=== PATIENT | male | born 1945 | race Caucasian/White ===

== ENCOUNTER 2023-01-04 10:51 | Inpatient (IN) | payer MEDICARE, SELFPAY ==
[2023-01-04] VITALS (33 sets, daily range): BP systolic 121–210; BP diastolic 74–121; PULSE 59–98; RESP 12–18; TEMP 36.1–36.6; O2SAT 93–100; BMI 24.3
--- NOTE | ~2023-01-04 | XR_ITS ---
Portable chest x-ray Comparison: 01/06/2023 Clinical History: Respiratory failure Findings: NG tube is in satisfactory position. There is minimal bibasilar haziness. Cardiomediastin al silhouette is stable. Bones and soft tissues are unremarkable. Impression: NG tube in place. Minimal bibasilar haziness. Correlate for mild pulmonary edema versus atelectatic change. Reviewed, dictated and finalized at location . Impression: NG tube in place. Minimal bibasilar haziness. Correlate for mild pulmonary edema versus atelectat ic change.
--- NOTE | ~2023-01-04 | CT_ITS ---
EXAMINATION: CT soft tissue neck chest w DATE: 01/06/2023 08:47 INDICATION: Neck swelling. TECHNIQUE: Computed tomography (CT) of the neck and chest was performed with 75 mL Omnipaque-350 intr avenous contrast. Automated exposure control and iterative reconstruction technique were employed. Th e dose-length product was 1059.78 mGy-cm. COMPARISON: None FINDINGS: CT NECK: There is mild mucosal thickening in the paranasal sinuses. There is fluid in the pharynx and trachea. The endotracheal tube tip is in expected position above the heber. An orogastric tube is n oted. There is mild plaque in the proximal internal carotid arteries with 0% stenosis relative to nor mal distal artery lumen diameters. There are no pathologically enlarged lymph nodes. There is superfi cial soft tissue swelling of the neck, left worse than right. There are small bilateral mastoid effus ions. There is severe cervical spondylosis. CT CHEST: There is mild emphysema. There is mild elevation of left hemidiaphragm. There are small ple ural effusions. There is dependent atelectasis bilaterally. There is mucous plugging in the lower lob es. Calcified left lung nodules and calcified left hilar lymph nodes are consistent with old granulom atous disease. The heart size is normal. No pericardial effusion. There are coronary artery calcifica tions. There is no pulmonary embolus. Aortic atherosclerosis is noted. There is a 2.6 cm mass in righ t adrenal gland. There is a 1.5 cm mass in left adrenal gland. There is severe thoracic spondylosis. IMPRESSION: 1. Superficial soft tissue swelling of the neck, left worse than right. 2. Mild emphysema. 3. Small pleural effusions. 4. Mucous plugging in the lower lobes. 5. Bilateral adrenal masses measuring up to 2.6 cm on the right. In the absence of known malignancy, these findings are likely adenomas. Reviewed, dictated and finalized at location E.
--- NOTE | ~2023-01-04 | XR_ITS ---
EXAMINATION: XR chest ET placement DATE: 01/04/2023 12:56 INDICATION: Intubation. TECHNIQUE: A single frontal view of the chest was obtained. COMPARISON: None. FINDINGS: There is mild atelectasis in right lower lung zone. There is mild scarring at the lung apic es. No pleural effusion or pneumothorax. The heart size is normal. The endotracheal tube tip is 3.7 c m above the heber. IMPRESSION: 1. Mild atelectasis in right lower lung zone. 2. Mild scarring at the lung apices. Reviewed, dictated and finalized at location A.
--- NOTE | ~2023-01-04 | XR_ITS ---
XR_KUBGTUBINS_CR INDICATION: Evaluate NG tube position. TECHNIQUE: Limited KUB perform for evaluating NG tube . COMPARISON: No prior studies for comparison. FINDINGS: NG tube tip in the stomach on the second image. Visualized bowel gas pattern is unremarkabl e.Lung bases are unremarkable. IMPRESSION: 1: NG tube tip in the stomach on the second image. Reviewed, dictated and finalized at location B.
--- NOTE | ~2023-01-04 | XR_ITS ---
MODIFIED ESOPHAGRAM HISTORY: Dysphagia. TECHNIQUE: Modified barium esophagram was performed on 01/07/2023. I administered fluoroscopy and perf ormed the exam with speech pathologist. Patient was seated for lateral fluoroscopic imaging for claudette stion of thin liquids, pudding, solids and quantified amounts, followed by thin liquids in uncontroll ed amounts. This was recorded on tape. 2 fluoroscopic spot images were also recorded. The DAP for thi s procedure was 2.0 34 Gycm2. The amount of fluoroscopy time used during this procedure was 3.9 minut es. FINDINGS: Initial attempt at evaluation was limited by the presence of a nasogastric tube which was coiled in t he vallecula which interfered with normal swallowing. Patient was returned following removal of the n asogastric tube. Oral stage: Adequate function. Pharyngeal stage: Reduced pharyngeal squeeze. There is both vallecular and pharyngeal wall residue, t he former which clears with multiple swallows. No laryngeal penetration or aspiration. Cervical/esophageal stage: Adequate function. IMPRESSION: Mild pharyngeal dysphagia without residual penetration or aspiration. Please correlate w jennifer speech pathologist findings and specific feeding recommendations. Reviewed, dictated and finalized at location A. IMPRESSION: Mild pharyngeal dysphagia without residual penetration or aspiratio n. Please correlate with speech pathologist findings and specific feeding shane mmendations.
--- NOTE | ~2023-01-04 | XR_ITS ---
EXAMINATION: XR chest 1V portable DATE: 01/05/2023 05:31 INDICATION: Acute respiratory failure. TECHNIQUE: A single frontal view of the chest was obtained. COMPARISON: Chest single view 01/04/2023 FINDINGS: There are airspace opacities at left lung base. There is a small left pleural effusion. No pneumothorax. The heart size is normal. The nasogastric tube tip is in the stomach. The endotracheal tube tip is 3.0 cm above the heber. IMPRESSION: 1. Worsened airspace opacities at left lung base, consistent with atelectasis versus pneumonia. 2. Small left pleural effusion. Reviewed, dictated and finalized at location A. IMPRESSION: 1. Worsened airspace opacities at left lung base, consistent with atelectasis v ersus pneumonia. 2. Small left pleural effusion.
--- NOTE | ~2023-01-04 | XR_ITS ---
Portable upright view of the abdomen Clinical history: NG tube placement Findings: NG tube is present, tip below the diaphragm. Bowel gas pattern is nonspecific. Evidence for obstruction or free air. No abnormal mass lesion or calcification is seen. Osseous structures are in tact. Impression: NG tube in satisfactory position. Reviewed, dictated and finalized at location . Impression: NG tube in satisfactory position.
--- NOTE | ~2023-01-04 | XR_ITS ---
EXAMINATION: XR chest 1V portable DATE: 01/06/2023 05:30 INDICATION: Respiratory failure. TECHNIQUE: A single frontal view of the chest was obtained. COMPARISON: Chest single view 01/05/2023 FINDINGS: There are airspace opacities at left lung base. There is a small left pleural effusion. No pneumothorax. The heart size is normal. The endotracheal tube tip is 1.9 cm above the heber. The norma ogastric tube tip is beyond the inferior margin of the radiograph, but at least to the stomach. IMPRESSION: 1. Stable airspace opacities at left lung base, consistent with atelectasis versus pneumonia. 2. Stable small left pleural effusion. Reviewed, dictated and finalized at location E. IMPRESSION: 1. Stable airspace opacities at left lung base, consistent with atelectasis raimundo fabián pneumonia. 2. Stable small left pleural effusion.
[2023-01-04] MEDS: EPINEPHrine HCL INJ 1 MG/ML AMPUL (11:05)
[2023-01-04] MEDS: diphenhydrAMINE HCl INJ 50 MG/ML VIAL (11:05)
--- NOTE | 2023-01-04 11:15 | PC.NURSE ---
Dr. Kent in room to assess pt. He would like pt to be taken to OR to be intubated. He states they will go get an OR room ready and to watch him and if starts to get worse, call.
[2023-01-04] MEDS: methylPREDNISolone SOD SUCC 125 MG VIAL (11:18)
[2023-01-04] MEDS: FAMOTIDINE 20 MG/2 ML VIAL (11:18)
--- NOTE | 2023-01-04 11:18 | PC.NURSE ---
Pt tongue continues to swell and pt becoming more restless. Pt assisted with suctioning. 2L NC placed on pt.
--- NOTE | 2023-01-04 11:22 | PC.NURSE ---
Pt taken to OR at this time
--- NOTE | 2023-01-04 11:35 | ED.ALLEREA ---
HPI - Allergic Reaction General Chief complaint: Allergic Reaction Stated complaint: Allergic Reaction, tongue swelling Time Seen by Provider: 01/04/23 11:02 History of Present Illness HPI narrative: 77-year-old male with history of hypertension and smoking presents to the ED for evaluation of swelling of the tongue that started approximate 2 hours prior to arrival. Upon arrival to the ED patient had significant swelling of tongue and to upper throat and patient was having difficulty handling his secretions. Patient denied any chest pain and was able to breathe through his nose. Related Data Home Medications Medication Instructions Recorded Confirmed lisinopril 20 1 tablet PO DAILY 01/04/23 01/04/23 mg-hydrochlorothiazide 12.5 mg tablet Allergies Allergy/AdvReac Type Severity Reaction Status Date / Time lisinopril Allergy Severe Anaphylaxis Verified 01/04/23 13:11 /ANGIOEDEMA Review of Systems Review of Systems: All systems reviewed & are unremarkable except as noted in HPI and below PMFSH Social History Social History Smoking packs per day: 0.5 Smoking cigarettes per day: 10.0 Smoking status: Current every day smoker Alcohol intake: current Substance use type: does not use Other substance usage details: 3-4 glasses of wine per day Spiritual care concerns: No Exam Narrative: APPEARANCE: Distressed appearing HEAD: normocephalic, atraumatic. EYES: PERRLA/EOMI, conjunctivae clear. NOSE: Normal no drainage EARS:TMS clear with good light reflex. THROAT: Significant swelling of tongue NECK: Swelling of anterior throat RESPIRATORY: Airway patent, respirations nonlabored. Clear to auscultation bilaterally, no rales, rhonchi, wheezing. CARDIOVASCULAR: Regular rate and rhythm without murmurs rubs or gallops. ABDOMINAL: Soft, nontender, nondistended, normal bowel sounds MUSCULOSKELETAL: Moves all extremities. Strength/ROM intact, No edema, No calf tenderness. NEURO: Alert. Cranial nerves II through XII intact. Grossly intact SKIN: Warm, dry. Normal Color Course Course Emergency Course: 77-year-old male presented ED for evaluation of angioedema. Shortly after arrival to the ED anesthesia and ENT were consulted. Dr. Kent did see the patient in the emergency department and decided to establish the airway in the operating room. Prior to going to the OR patient was treated with IM epinephrine, IV Solu-Medrol IV Solu-Medrol and IV famotidine. Case was discussed with both the medical office receptionist assistant and with the hospitalist Vital Signs Vital signs: Vital Signs Temperature 97.4 F L 01/04/23 11:08 Pulse Rate 81 01/04/23 11:08 Respiratory Rate 18 01/04/23 11:08 Blood Pressure 190/103 H 01/04/23 11:08 Pulse Oximetry 100 01/04/23 11:08 Oxygen Delivery Room Air 01/04/23 11:08 Temperature 97.9 F 01/04/23 18:16 Pulse Rate 76 01/04/23 18:36 Respiratory Rate 18 01/04/23 18:16 Blood Pressure 177/85 H 01/04/23 18:15 Pulse Oximetry 96 01/04/23 18:16 Oxygen Delivery Mechanical Ventilation 01/04/23 17:13 Fraction of Inspired Oxygen 30 01/04/23 17:13 MDM - Allergic Reaction Lab Data 01/04/23 15:06 01/04/23 15:06 Discharge Plan Discharge Clinical Impression: Angioedema Patient Disposition: Still a Patient Condition: Critical
--- NOTE | 2023-01-04 11:48 | WPDCN ---
Assessment and Plan Assessment and plan (1) Angioedema: Code(s): T78.3XXA - Angioneurotic edema, initial encounter Status: Acute Plan Rob presented with angioedema, progressive, likely secondary to EVELINA inhibitor. I was consulted as he was being brought to the OR for airway management. Exam with glidescope and fiberoptic scope showed severe edema of the tongue all the way to the vallecula, significant epiglottic edema. Never got a good view of the vocal folds. Pt maintained saturation and Dr. Kent with anesthesia was able to intubate with endotracheal tube despite very limited view. Tracheostomy was not reqiured. He will be transferred to ICU for further management. From ENT standpoint, should be able to extubate once passing leak test and signs of angioedema have resolved. Feel free to call if further concern for extubation or airway management. HPI Data of Consult Date/Time: 01/04/23 11:48 Primary Care Provider: PHYSICIAN NOT ON STAFF Consult Narrative Narrative: Rob Olivier is a 77 year old male, smoking history, presented to ED with angioedema after EVELINA inhibitor, progressive swelling prompting ENT consult for airway management. Review of Systems Review of Systems: Severe tongue edema, no stridor, pt sititng up in bed not tolerating secretions ROS unobtainable: Yes unobtainable due to medical condition Meds Home Medications and Allergies Allergies Allergy/AdvReac Type Severity Reaction Status Date / Time lisinopril Allergy Anaphylaxis Verified 01/04/23 11:16 Vital Signs Vital Signs - 24 hr 01/04/23 11:08 Temperature 36.3 C L Pulse Rate 81 Respiratory Rate 18 Blood Pressure 190/103 H Pulse Oximetry 100 Oxygen Delivery Room Air Exam Narrative: Severe tongue edema, uvular edema, extending to hypopharynx. Pt was brought to OR for intubation.
--- NOTE | 2023-01-04 11:51 | SUR.OPER ---
INTUBATION DONE BY DR. MALHOTRA. DR ANTON AT BEDSIDE.
--- NOTE | 2023-01-04 12:10 | ADMGEN ---
This patient, Rob Olivier, was admitted to Intensive Care Unit-5. Patient/family oriented to hospital policies and general routines including ID bracelet, bed and alarms, visiting hours, pain management, procedures, bathroom and other care routines, personal items, smoking policy, room service/diet, and visiting hours. Information on how to activate the Rapid Response Team has been discussed. Patient/Family are encouraged to report perceived risks to care and to ask questions if they do not understand what they are told or what they should do.
[2023-01-04] MEDS: CISATRACURIUM BESYLATE 200 MG in DEXTROSE 5% 80 ML 6.66 ML IV CONT (12:59)
[2023-01-04] MEDS: PROPOFOL IV EMULSION 100 ML 13.32 MG IV CONT (13:03)
[2023-01-04] MEDS: ROCURONIUM BROMIDE 50 MG/5 ML VIAL IV PUSH (13:04)
--- NOTE | 2023-01-04 13:29 | WPDCNINT ---
Assessment and Plan Assessment and plan (1) Acute respiratory failure: Code(s): J96.00 - Acute respiratory failure, unspecified whether with hypoxia or hypercapnia Status: Acute Assessment and Plan: Acute respiratory failure likely secondary to angioedema, significant swelling of the tongue all the way to the vallecula as examine by ENT using glide scope and fiberoptic scope, significant epiglottic edema, not a good view of the vocal cords, anesthesia was able to intubate the patient with difficulty and with limited views. -chest x-ray and ABGs reviewed, currently on peep of 5, FiO2 of 50%. Will wean FiO2 to maintain O2 sats > 92% -sedated with propofol infusion and neuromuscular blockade with Nimbex infusion -patient is a difficult airway, will keep him sedated and paralyzed for today (2) Angioedema: Code(s): T78.3XXA - Angioneurotic edema, initial encounter Status: Acute Assessment and Plan: Patient presented the ED with angioedema with significant swelling of the tongue and neck patient was a difficult airway and so was taken to the OR by Anesthesia and ENT to obtain in airway. -Discussed was anaesthesia and they were able to obtain an airway after prolonged attempt but his O2 sats remained above 95% at all times. -in the ER Patient was treated with IV Solu-Medrol, IV famotidine, IM epinephrine and IV Benadryl in the ER -started patient on IV Solu-Medrol q.6 hours, IV famotidine, IV Benadryl, (3) Essential hypertension: Code(s): I10 - Essential (primary) hypertension Status: Acute Assessment and Plan: Currently on propofol infusion -hydralazine p.r.n. (4) Tobacco use: Code(s): Z72.0 - Tobacco use Status: Acute Assessment and Plan: According the patient smokes half a packet of cigarettes per day, he is secretive about his smoking habits per - Will direct care counselor patient on cessation of smoking once he is extubated and awake (5) Alcohol use: Code(s): Z78.9 - Other specified health status Status: Acute Assessment and Plan: Patient drinks about 4 glasses of wine daily -once he is extubated will monitor for withdrawal Plan DVT prophylaxis: Lovenox Stress ulcer prophylaxis: Famotidine Nutrition: NPO for now Code Status: Full code Critical Care Time Spent: 53 minutes Due to a high probability of clinically significant, life threatening deterioration, the patient required my highest level of preparedness to intervene emergently and I personally spent this critical care time directly and personally managing the patient. This critical care time included obtaining a history; examining the patient; pulse oximetry; ordering and review of studies; arranging urgent treatment with development of a management plan; evaluation of patient's response to treatment; frequent reassessment; and discussions with other providers. It was exclusive of separately billable procedures and treating other patients and teaching time. Please see Assessment and Plan section and the rest of the note for further information on patient assessment and treatment This dictation may have been done utilizing a voice recognition system. Attempts have been made to correct errors. However, there may be uncorrected grammatical, spelling, and recognitions errors present. 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 This all started about 2 hours prior arrival in the ER. In the ER patient was found to have angioedema with significant swelling of the tongue and neck patient was a difficult airway and so was taken to the OR by Anesthesia a
[2023-01-04 13:33] LABS: Alveolar/Arterial O2 Gradient 187.7 mmHg; Base Excess ABG -4.2 mEq/l (+/-2.0); Fractional Inspired Oxygen 50 %; HCO3 ABG 21.7 mEq/l (22.0-26.0); Oxygen Content ABG 21.4 %vol (16.0-22.0); Oxygen Saturation ABG 98.1 % (95.0-100.0); Oxyhemoglobin 95.1 % THb (90.0-100.0); PCO2 ABG 42.4 mmHg (35.0-45.0); PO2 ABG 121.1 mmHg (80.0-100.0); PO2 FiO2 Ratio Arterial Blood 2.42 %; Total Hemoglobin 15.9 g/dL (12.0-18.0); pH ABG 7.326 (7.350-7.450)
[2023-01-04 13:35] LABS: Device VENTILATOR; Site Drawn LEFT BRACHIAL
[2023-01-04 13:36] LABS: Arterial Blood Gas PEEP 5 cmH2O; Arterial Blood Gas Pressure Support 0 cmH2O; Arterial Blood Gas Tidal Volume 480 ml; Arterial Blood Gas Vent Mode CMV; Arterial Blood Gas Ventilator rate 18 /MIN
[2023-01-04] MEDS: ENOXAPARIN 40 MG/0.4 ML SYRINGE SUB-Q (14:29)
[2023-01-04] MEDS: methylPREDNISolone SOD SUCC 125 MG VIAL 60 MG IV PUSH ×3 (14:29→23:57)
[2023-01-04] MEDS: diphenhydrAMINE HCl INJ 50 MG/ML VIAL IV PUSH ×2 (14:55→20:06)
[2023-01-04] MEDS: hydrALAZINE HCL 20 MG/ML VIAL 10 MG IV PUSH (14:55)
[2023-01-04 15:12] LABS: Basophils Absolute Auto 0.1 K/mm3 (0.0-0.1); Basophils Percent Auto 0.5 % (0.2-1.2); Eosinophils Percent Auto 0.2 % (0-4.4); Hematocrit 50.3 % (42.0-52.0); Hemoglobin 15.9 g/dL (14.0-18.0); Immature Granulocyte Absolute 0.05 K/mm3 (0.00-0.031); Immature Granulocyte Percent A 0.4 % (0-0.5); Lymphocytes Absolute Auto 0.87 K/mm3 (0.9-3.2); Lymphocytes Percent Auto 7.1 % (18.3-44.2); Mean Corpuscular HGB Conc 31.6 g/dl (32-36); Mean Corpuscular Hemoglobin 32.6 pg (26-34); Mean Corpuscular Volume 103.1 fl (80-100); Mean Platelet Volume 10.2 fl (7.4-10.4); Monocytes Absolute Auto 0.3 K/mm3 (0.1-0.6); Monocytes Percent Auto 2.5 % (2.6-8.5); Neutrophils Percent Auto 89.3 % (45.5-73.1); Platelet Count Result 196 k/mm3 (150-375); Red Blood Count 4.88 M/mm3 (4.6-6.20); Red Cell Distribution Width 13.6 % (11.5-14.5); White Blood Count 12.3 K/mm3 (4.5-10.0)
[2023-01-04 15:22] LABS: Alanine Aminotransferase 15 U/L (6-50); Albumin Level 3.9 g/dL (3.5-5.1); Alkaline Phosphatase 45 U/L (38-126); Anion Gap 11 mmol/L (8-16); Aspartate Amino Transferase 27 U/L (17-59); Bilirubin,Total 0.6 mg/dL (0.2-1.3); Blood Urea Nitrogen 19 mg/dL (9-20); Calcium 8.3 mg/dL (8.4-10.2); Carbon Dioxide 19 mmol/L (22-30); Chloride 102 mmol/L (98-107); Estimated CRCL calculation 51 ml/min; Estimated Glomerular Filt Rate > 60; Glucose 122 mg/dL (65-110); Magnesium 2.5 mg/dL (1.6-2.3); Phosphorus 4.7 mg/dL (2.5-4.5); Potassium 4.6 mmol/L (3.4-5.0); Sodium 132 mmol/L (137-145)
[2023-01-04 15:23] LABS: Partial Thromboplastin Time 30.6 SECONDS (22.3-36.8)
[2023-01-04 15:26] LABS: Platelet Estimate Adequate (Adequate); Schistocytes None Seen (NORMAL)
[2023-01-04] MEDS: SODIUM CHLORIDE 0.9% IV 1,000 ML 75 ML (16:52)
[2023-01-04] MEDS: SODIUM CHLORIDE 0.9% IV 1,000 ML 75 ML IV CONT (16:53)
--- NOTE | 2023-01-04 17:43 | PM.IMHP ---
H&P: HPI History of Present Illness Date/Time: 01/04/23 19:30 Chief Complaint: Tongue swelling. Narrative: This is a 77-year-old male with hypertension who presented to the emergency department via private vehicle for evaluation of tongue swelling. He is currently intubated and sedated on paralytics and thus the following history is obtained via a review of his EMR. About 2 hours prior to arrival he developed swelling in the tongue and throat. Ultimately he started to experience shortness of breath and had difficulties maintaining secretions and he came in for evaluation. He was noted to have significant edema of the tongue and neck on arrival to the ER and he was taken immediately to the operating room where he was intubated by the anesthesiologist; ENT was also at bedside and available should a surgical airway become necessary. SpO2 remained above 95% during attempts at intubation. He was treated with IV methylprednisolone, diphenhydramine, and famotidine as well as IM epinephrine. He was brought to the ICU sedated and he has been started on paralytics to ensure that the patient will not be able to self extubate given airway concerns. He has been on lisinopril for many years. He has not had any recent changes in medications or new exposures according to his . Review of Systems Review of Systems: Unable to obtain given clinical condition. [facility] Past Medical History Medical History Hypertension Family History Family History (Updated 01/05/23 @ 13:54 by Mari Meléndez PA-C) Other Family history unknown Social History Social History (Updated 01/05/23 @ 13:54 by Mari Meléndez PA-C) Social History: Surrogate medical decision maker: Emily Montesinos, spouse. Code status: Full code. Smoking packs per day: 0.5 Smoking cigarettes per day: 10.0 Smoking status: Current every day smoker Alcohol intake: current Alcohol use details: 3-4 glasses of wine per day. Substance use: never Spiritual care concerns: No Meds Home Medications and Allergies Home Medications Medication Instructions Recorded Confirmed Type lisinopril 20 1 tablet PO DAILY 01/04/23 01/04/23 History mg-hydrochlorothiazide 12.5 mg tablet Allergies Allergy/AdvReac Type Severity Reaction Status Date / Time lisinopril Allergy Severe Anaphylaxis Verified 01/04/23 13:11 /ANGIOEDEMA Vital Signs Vital Signs - 24 hr 01/04/23 11:08 01/04/23 12:10 01/04/23 12:15 Temperature 97.4 F L 97.0 F L Pulse Rate 81 74 61 Respiratory Rate 18 18 Blood Pressure 190/103 H 121/74 Pulse Oximetry 100 93 99 Oxygen Delivery Room Air Mechanical Ventilation Fraction of Inspired Oxygen 50 01/04/23 13:15 01/04/23 15:00 01/04/23 16:12 Temperature 97.0 F L Pulse Rate 63 84 91 Respiratory Rate 18 18 18 Blood Pressure 153/88 H Pulse Oximetry 99 Oxygen Delivery Fraction of Inspired Oxygen 01/04/23 16:55 01/04/23 14:00 01/04/23 15:00 Temperature Pulse Rate 92 59 L 60 Respiratory Rate 18 12 18 Blood Pressure 202/121 H 210/101 H Pulse Oximetry Oxygen Delivery Fraction of Inspired Oxygen 01/04/23 16:00 01/04/23 17:03 01/04/23 17:24 Temperature Pulse Rate 92 93 94 Respiratory Rate 18 18 18 Blood Pressure 204/101 H 161/87 H Pulse Oximetry Oxygen Delivery Fraction of Inspired Oxygen 01/04/23 17:38 01/04/23 14:00 01/04/23 14:00 Temperature 97.6 F Pulse Rate 90 62 62 Respiratory Rate 18 18 Blood Pressure 170/74 H Pulse Oximetry 98 Oxygen Delivery Fraction of Inspired Oxygen 01/04/23 15:01 01/04/23 17:13 Temperature Pulse Rate 60 94 Respiratory Rate Blood Pressure Pulse Oximetry 100 96 Oxygen Delivery Mechanical Ventilation Mechanical Ventilation Fraction of Inspired Oxygen 40 30 Exam Const: Other: Well-developed male sedated, paralyzed, and intubated on mecha
[2023-01-04] MEDS: PROPOFOL IV EMULSION 100 ML 22.2 MG IV CONT ×2 (17:57→22:09)
--- NOTE | 2023-01-04 17:57 | PC.NURSE ---
BP 205/97. Elevated BP despite increase in propofol and prn hydralazine. Dr. Hernandez made aware. New orders for Amlodipine 10 mg po x 1 and Metoprolol 5 mg IVP x 1.
[2023-01-04] MEDS: amLODIPine BESYLATE 5 MG TABLET 10 MG PO (18:36)
[2023-01-04] MEDS: METOPROLOL TARTRATE INJ 5 MG/5 ML VIAL IV PUSH (18:36)
[2023-01-04 18:59] LABS: Glucose Point of Care 169 mg/dl (65-105)
[2023-01-04] MEDS: FAMOTIDINE 20 MG/2 ML VIAL IV PUSH (20:06)
[2023-01-04] MEDS: MINERAL OIL/WHITE PETROLATUM OINTMENT 1 APPLIC EACH EYE (20:06)
[2023-01-04 20:25] LABS: Triglycerides 109 mg/dL (<150)
[2023-01-04] MEDS: MIDAZOLAM 100MG/NS 100ML(*CRX) 100 MG/100 ML BAG IV CONT (21:14)
[2023-01-04 23:58] LABS: Glucose Point of Care 178 mg/dl (65-105)
[2023-01-05] VITALS (44 sets, daily range): BP systolic 109–169; BP diastolic 70–86; PULSE 58–111; RESP 18–22; TEMP 35.7–36.6; O2SAT 94–99; BMI 26.2
[2023-01-05] MEDS: hydrALAZINE HCL 20 MG/ML VIAL 10 MG IV PUSH
[2023-01-05] MEDS: CISATRACURIUM BESYLATE 200 MG in DEXTROSE 5% 80 ML 6.66 ML IV CONT (01:57)
[2023-01-05] MEDS: PROPOFOL IV EMULSION 100 ML 22.2 MG IV CONT ×5 (01:58→18:29)
[2023-01-05] MEDS: diphenhydrAMINE HCl INJ 50 MG/ML VIAL IV PUSH ×4 (02:06→20:07)
--- NOTE | 2023-01-05 02:22 | PC.NURSE ---
Addendum entered by Burt Roman RN 01/05/23 02:34: Increased HR/blood pressure. Original Note: Dr. Sharp notified of increased heart rate. Order for Fentanyl 50mcg x1 IV now. If no relief, Call Dr. holland
[2023-01-05] MEDS: fentaNYL CITRATE INJ (*CRX) 100 MCG/2 ML VIAL 50 MCG IV PUSH (02:26)
[2023-01-05] MEDS: SODIUM CHLORIDE 0.9% IV 1,000 ML 75 ML IV CONT (04:59)
[2023-01-05] MEDS: methylPREDNISolone SOD SUCC 125 MG VIAL 60 MG IV PUSH ×4 (04:59→23:43)
[2023-01-05 05:04] LABS: Basophils Percent Auto 0.2 % (0.2-1.2); Hematocrit 50.3 % (42.0-52.0); Hemoglobin 16.5 g/dL (14.0-18.0); Immature Granulocyte Absolute 0.09 K/mm3 (0.00-0.031); Immature Granulocyte Percent A 0.5 % (0-0.5); Lymphocytes Absolute Auto 0.66 K/mm3 (0.9-3.2); Lymphocytes Percent Auto 3.9 % (18.3-44.2); Mean Corpuscular HGB Conc 32.8 g/dl (32-36); Mean Corpuscular Hemoglobin 31.8 pg (26-34); Mean Corpuscular Volume 96.9 fl (80-100); Mean Platelet Volume 9.1 fl (7.4-10.4); Monocytes Absolute Auto 0.5 K/mm3 (0.1-0.6); Monocytes Percent Auto 2.9 % (2.6-8.5); Neutrophils Absolute Auto 15.5 K/mm3 (1.3-6.7); Neutrophils Percent Auto 92.5 % (45.5-73.1); Platelet Count Result 239 k/mm3 (150-375); Red Blood Count 5.19 M/mm3 (4.6-6.20); Red Cell Distribution Width 13.1 % (11.5-14.5); White Blood Count 16.7 K/mm3 (4.5-10.0)
[2023-01-05 05:17] LABS: Alanine Aminotransferase 15 U/L (6-50); Albumin Level 4.2 g/dL (3.5-5.1); Alkaline Phosphatase 43 U/L (38-126); Anion Gap 14 mmol/L (8-16); Aspartate Amino Transferase 26 U/L (17-59); Bilirubin,Total 0.6 mg/dL (0.2-1.3); Blood Urea Nitrogen 22 mg/dL (9-20); Calcium 8.1 mg/dL (8.4-10.2); Carbon Dioxide 16 mmol/L (22-30); Chloride 101 mmol/L (98-107); Estimated CRCL calculation 56 ml/min; Estimated Glomerular Filt Rate > 60; Glucose 197 mg/dL (65-110); Magnesium 2.2 mg/dL (1.6-2.3); Phosphorus 6.1 mg/dL (2.5-4.5); Potassium 4.7 mmol/L (3.4-5.0); Sodium 131 mmol/L (137-145)
[2023-01-05 05:21] LABS: Alveolar/Arterial O2 Gradient 87.1 mmHg; Base Excess ABG -5.1 mEq/l (+/-2.0); Carboxyhemoglobin 0.2 % THb (0-2.0); Fractional Inspired Oxygen 35 %; HCO3 ABG 23.4 mEq/l (22.0-26.0); Methemoglobin ABG 0.5 %THb (0-1.5); Oxygen Saturation ABG 96.1 % (95.0-100.0); Oxyhemoglobin 95.3 % THb (90.0-100.0); PCO2 ABG 56.5 mmHg (35.0-45.0); PO2 ABG 96.8 mmHg (80.0-100.0); PO2 FiO2 Ratio Arterial Blood 2.77 %; Total Hemoglobin 17.1 g/dL (12.0-18.0)
[2023-01-05 05:22] LABS: pH ABG 7.235 (7.350-7.450)
[2023-01-05 05:23] LABS: Site Drawn RIGHT RADIAL
[2023-01-05 05:26] LABS: Arterial Blood Gas PEEP 5 cmH2O; Arterial Blood Gas Tidal Volume 480 ml; Arterial Blood Gas Vent Mode CMV; Arterial Blood Gas Ventilator rate 18 /MIN; Device VENTILATOR; Modified Allen's Test Unable to perform
[2023-01-05] MEDS: FAMOTIDINE 20 MG/2 ML VIAL IV PUSH ×2 (08:26→20:08)
[2023-01-05] MEDS: MINERAL OIL/WHITE PETROLATUM OINTMENT 1 APPLIC EACH EYE ×2 (08:26→20:08)
[2023-01-05] MEDS: ENOXAPARIN 40 MG/0.4 ML SYRINGE SUB-Q (08:26)
[2023-01-05] MEDS: PIPERACILLN/TAZ 3.375GM/NS50ML 3.375 GM/50 ML BAG IVPB (08:29)
--- NOTE | 2023-01-05 08:47 | WPDCNINT ---
Punchboard Assembler Consult Note Consult date: 01/05/23 HPI: Rob Olivier is a 77 year old male [facility] Social History Social History Smoking packs per day: 0.5 Smoking cigarettes per day: 10.0 Smoking status: Current every day smoker Alcohol intake: current Substance use type: does not use Other substance usage details: 3-4 glasses of wine per day Spiritual care concerns: No Meds Home Medications and Allergies Home Medications Medication Instructions Recorded Confirmed Type lisinopril 20 1 tablet PO DAILY 01/04/23 01/04/23 History mg-hydrochlorothiazide 12.5 mg tablet Allergies Allergy/AdvReac Type Severity Reaction Status Date / Time lisinopril Allergy Severe Anaphylaxis Verified 01/04/23 13:11 /ANGIOEDEMA Vital Signs Vital Signs - 24 hr 01/04/23 11:08 01/04/23 12:10 01/04/23 12:15 Temperature 36.3 C L 36.1 C L Pulse Rate 81 74 61 Respiratory Rate 18 18 Blood Pressure 190/103 H 121/74 Pulse Oximetry 100 93 99 Oxygen Delivery Room Air Mechanical Ventilation Fraction of Inspired Oxygen 50 01/04/23 13:15 01/04/23 15:00 01/04/23 16:12 Temperature 36.1 C L Pulse Rate 63 84 91 Respiratory Rate 18 18 18 Blood Pressure 153/88 H Pulse Oximetry 99 Oxygen Delivery Fraction of Inspired Oxygen 01/04/23 16:55 01/04/23 14:00 01/04/23 15:00 Temperature Pulse Rate 92 59 L 60 Respiratory Rate 18 12 18 Blood Pressure 202/121 H 210/101 H Pulse Oximetry Oxygen Delivery Fraction of Inspired Oxygen 01/04/23 16:00 01/04/23 17:03 01/04/23 17:24 Temperature Pulse Rate 92 93 94 Respiratory Rate 18 18 18 Blood Pressure 204/101 H 161/87 H Pulse Oximetry Oxygen Delivery Fraction of Inspired Oxygen 01/04/23 17:38 01/04/23 17:57 01/04/23 14:00 Temperature Pulse Rate 90 81 62 Respiratory Rate 18 18 Blood Pressure Pulse Oximetry Oxygen Delivery Fraction of Inspired Oxygen 01/04/23 14:00 01/04/23 15:01 01/04/23 17:13 Temperature 36.4 C Pulse Rate 62 60 94 Respiratory Rate 18 Blood Pressure 170/74 H Pulse Oximetry 98 100 96 Oxygen Delivery Mechanical Ventilation Mechanical Ventilation Fraction of Inspired Oxygen 40 30 01/04/23 18:36 01/04/23 13:00 01/04/23 16:00 Temperature Pulse Rate 76 Respiratory Rate Blood Pressure Pulse Oximetry 100 96 Oxygen Delivery Mechanical Ventilation Mechanical Ventilation Fraction of Inspired Oxygen 30 30 01/04/23 16:00 01/04/23 18:00 01/04/23 16:00 Temperature 36.6 C Pulse Rate 98 61 94 Respiratory Rate 18 Blood Pressure 204/101 H Pulse Oximetry 98 Oxygen Delivery Fraction of Inspired Oxygen 01/04/23 16:01 01/04/23 16:13 01/04/23 16:15 Temperature 36.6 C 36.6 C 36.6 C Pulse Rate 92 90 94 Respiratory Rate 18 18 18 Blood Pressure 196/101 H 207/103 H Pulse Oximetry 99 99 98 Oxygen Delivery Fraction of Inspired Oxygen 01/04/23 16:16 01/04/23 18:00 01/04/23 18:01 Temperature 36.6 C 36.6 C 36.6 C Pulse Rate 92 79 80 Respiratory Rate 18 18 18 Blood Pressure 161/85 H Pulse Oximetry 99 95 96 Oxygen Delivery Fraction of Inspired Oxygen 01/04/23 18:15 01/04/23 18:16 01/04/23 19:39 Temperature 36.6 C 36.6 C Pulse Rate 79 80 62 Respiratory Rate 18 18 18 Blood Pressure 177/85 H Pulse Oximetry 96 96 Oxygen Delivery Fraction of Inspired Oxygen 01/04/23 19:39 01/04/23 19:45 01/04/23 20:02 Temperature Pulse Rate 61 61 60 Respiratory Rate 18 18 Blood Pressure 142/74 H Pulse Oximetry 96 97 Oxygen Delivery Mechanical Ventilation Mechanical Ventilation Fraction of Inspired Oxygen 30 30 01/04/23 20:00 01/04/23 20:00 01/04/23 21:14 Temperature 36.4 C L Pulse Rate 61 60 63 Respiratory Rate 18 18 Blood Pressure 149/79 H Pulse Oximetry 96 Oxygen Delivery Fraction of Inspired Oxygen 01/04/23 22:09
--- NOTE | 2023-01-05 08:47 | WPDINTPN ---
Progress Note: A&P Assessment and Plan (1) Acute respiratory failure: Code(s): J96.00 - Acute respiratory failure, unspecified whether with hypoxia or hypercapnia Status: Acute Assessment and Plan: Acute respiratory failure likely secondary to angioedema, significant swelling of the tongue all the way to the vallecula as examine by ENT using glide scope and fiberoptic scope, significant epiglottic edema, not a good view of the vocal cords, anesthesia was able to intubate the patient with difficulty and with limited views. -ABGs reviewed - currently on peep of 5, FiO2 of 35%. Increase rate to 22 -sedated with propofol infusion and neuromuscular blockade with Nimbex infusion -patient is a difficult airway with persistent swelling, will keep him sedated and paralyzed through today and re-evaluate tomorrow -chest x-ray shows left lower lobe infiltrate possible aspiration pneumonia -check blood and sputum cultures. Start empiric Zosyn (2) Angioedema: Code(s): T78.3XXA - Angioneurotic edema, initial encounter Status: Acute Assessment and Plan: Patient presented the ED with angioedema with significant swelling of the tongue and neck patient was a difficult airway and so was taken to the OR by Anesthesia and ENT to obtain in airway. -patient had no other symptoms suggestive of allergic or anaphylactic reaction. No family history or similar incidents in the past. Patient did not eat anything that morning apart from coffee as per his . All these things point towards angioedema secondary to David inhibitor as the likely etiology -01/04 anaesthesia were able to obtain an airway after prolonged attempt but his O2 sats remained above 95% at all times. -in the ER Patient was treated with IV Solu-Medrol, IV famotidine, IM epinephrine was given and IV Benadryl in the ER -patient was started on patient on IV Solu-Medrol q.6 hours, IV famotidine, IV Benadryl on admission which I will continue through today although the clinical utility of these are low -swelling appears to be improved but still present. Will re-evaluate in another 24 hours along with a CT scan of soft tissue neck for better assessment of swelling (3) Aspiration pneumonia: Code(s): J69.0 - Pneumonitis due to inhalation of food and vomit Status: Acute Assessment and Plan: See above (4) Essential hypertension: Code(s): I10 - Essential (primary) hypertension Status: Acute Assessment and Plan: Currently on propofol infusion -hydralazine p.r.n. (5) Tobacco use: Code(s): Z72.0 - Tobacco use Status: Acute Assessment and Plan: According the patient smokes half a packet of cigarettes per day, he is secretive about his smoking habits per - Will awake overnight counselor patient on cessation of smoking once he is extubated and awake (6) Alcohol use: Code(s): Z78.9 - Other specified health status Status: Acute Assessment and Plan: Patient drinks about 4 glasses of wine daily Add thiamine and folic acid -once he is extubated will monitor for withdrawal Plan DVT prophylaxis: Lovenox Stress ulcer prophylaxis: Famotidine Nutrition: Start tube feeds Code Status: Full code I spoke to patient's and updated her with patient's current status and current treatment plan. I answered all her questions Critical Care Time Spent: 35 minutes Due to a high probability of clinically significant, life threatening deterioration, the patient required my highest level of preparedness to intervene emergently and I personally spent this critical care time directly and personally managing the patient. This critical care time included obtaining a history; examining the patient; pulse oximetry; ordering and review of studies; arranging urgent treatment with development of a management plan; evaluation of patient's response to treatment; frequent reassessment; and discussions with other providers. It was exclusive
--- NOTE | 2023-01-05 09:05 | WPDANESPN ---
Anes - Prog Note Post-Op Date/Time: 01/05/23 09:05 Cardiovascular status: normal Respiratory status: other (intubated and ventilated) Airway patency: other (intubated) Mental status: other (sedated) Post-Op hydration status: normal Vital Signs: Last Vital Signs Temp 35.9 C L 01/05/23 08:00 Pulse 76 01/05/23 08:10 Resp 22 H 01/05/23 08:00 BP 122/79 01/05/23 08:00 Pulse Ox 96 01/05/23 08:10 O2 Del Method Mechanical Ventilation 01/05/23 08:10 FiO2 35 01/05/23 08:10 Pain Score (VAS): 0/10 I/O: Intake & Output 01/04/23 01/05/23 01/05/23 23:59 07:59 15:59 Intake Total 200 334 Output Total 250 475 Balance -50 -141 Laboratory Tests 01/05/23 04:46 01/05/23 04:46 01/04/23 01/04/23 01/04/23 13:27 15:06 18:50 WBC 12.3 H RBC 4.88 Hgb 15.9 Hct 50.3 MCV 103.1 H MCH 32.6 MCHC 31.6 L RDW 13.6 Plt Count 196 MPV 10.2 Immature Gran % (Auto) 0.4 Neut % (Auto) 89.3 H Lymph % (Auto) 7.1 L [place] % (Auto) 2.5 L Eos % (Auto) 0.2 Baso % (Auto) 0.5 Lymph # (Auto) 0.87 L [place] # (Auto) 0.3 Eos # (Auto) 0.0 Baso # (Auto) 0.1 Abs Immat Gran (auto) 0.05 H Absolute Neuts (auto) 11.0 H Absolute Nucleated RBC 0.0 Nucleated RBC % 0.0 Platelet Estimate Adequate Schistocytes None seen PT 13.0 INR 1.0 APTT 30.6 Puncture Site Left brachial ABG pH 7.326 L ABG pCO2 42.4 ABG pO2 121.1 H ABG PO2/FiO2 Ratio 2.42 ABG HCO3 21.7 L ABG O2 Saturation 98.1 ABG O2 Content 21.4 ABG Base Excess -4.2 A-a Gradient 187.7 Oxyhemoglobin 95.1 Carboxyhemoglobin Methemoglobin Reduced Hemoglobin Total Hemoglobin 15.9 O2 Delivery Device Ventilator O2 Liters/Min 0.0 Minute Volume Not Reportable Vent Rate 18 Vent Mode Cmv FiO2 50 Tidal Volume 480 PEEP 5 Peak Inspir Pressure Not Reportable Pressure Support 0 Sodium 132 L Potassium 4.6 Chloride 102 Carbon Dioxide 19 L Anion Gap 11 BUN 19 Creatinine 1.10 Estim Creat Clear Calc 51 Estimated GFR > 60 Glucose 122 H POC Capillary Glucose 169 H Calcium 8.3 L Phosphorus 4.7 H Magnesium 2.5 H Total Bilirubin 0.6 AST 27 ALT 15 Alkaline Phosphatase 45 Total Protein 7.0 Albumin 3.9 Triglycerides 109 01/04/23 01/05/23 01/05/23 23:52 04:46 05:12 WBC 16.7 H RBC 5.19 Hgb 16.5 Hct 50.3 MCV 96.9 D MCH 31.8 MCHC 32.8 RDW 13.1 Plt Count 239 MPV 9.1 Immature Gran % (Auto) 0.5 Neut % (Auto) 92.5 H Lymph % (Auto) 3.9 L [place] % (Auto) 2.9 Eos % (Auto) 0.0 Baso % (Auto) 0.2 Lymph # (Auto) 0.66 L [place] # (Auto) 0.5 Eos # (Auto) 0.0 Baso # (Auto) 0.0 Abs Immat Gran (auto) 0.09 H Absolute Neuts (auto) 15.5 H Absolute Nucleated RBC 0.0 Nucleated RBC % 0.0 Platelet Estimate Schistocytes PT INR APTT Puncture Site Right radial ABG pH 7.235 L* ABG pCO2 56.5 H ABG pO2 96.8 ABG PO2/FiO2 Ratio 2.77 ABG HCO3 23.4 ABG O2 Saturation 96.1 ABG O2 Content 23.0 H ABG Base Excess -5.1 A-a Gradient 87.1 Oxyhemoglobin 95.3 Carboxyhemoglobin 0.2 Methemoglobin 0.5 Reduced Hemoglobin 4.0 Total Hemoglobin 17.1 O2 Delivery Device Ventilator O2 Liters/Min Not Reportable Minute Volume Not Reportable Vent Rate 18 Vent Mode Cmv FiO2 35 Tidal Volume 480 PEEP 5 Peak Inspir Pressure Not Reportable Pressure Support Not Reportable Sodium 131 L Potassium 4.7 Chloride 101 Carbon Dioxide 16 L Anion Gap 14 BUN 22 H Creatinine 1.00 Estim Creat Clear Calc 56 Estimated GFR > 60 Glucose 197 H POC Capillary Glucose 178 H Calcium 8.1 L Phosphorus 6.1 H Magnesium 2.2 Total Bilirubin 0.6 AST 26 ALT 15 Alkaline Phosphatase 43 Total Protein 7
[2023-01-05] MEDS: FOLIC ACID 1 MG TABLET FEED TUBE (09:08)
[2023-01-05] MEDS: LACTATED RINGERS 1,000 ML 125 ML IV CONT ×2 (09:08→16:14)
[2023-01-05] MEDS: THIAMINE HCL 100 MG TABLET FEED TUBE (09:08)
[2023-01-05 11:57] LABS: Glucose Point of Care 173 mg/dl (65-105)
[2023-01-05] MEDS: MIDAZOLAM 100MG/NS 100ML(*CRX) 100 MG/100 ML BAG 6 MG IV CONT (12:52)
[2023-01-05] MEDS: AMPICILLIN SULB 1.5 GM/NS 50ML 1.5 GM/50 ML VIAL IVPB ×2 (13:41→20:07)
[2023-01-05 18:14] LABS: Glucose Point of Care 185 mg/dl (65-105)
[2023-01-05] MEDS: CISATRACURIUM BESYLATE 200 MG in DEXTROSE 5% 80 ML IV CONT (20:43)
[2023-01-05] MEDS: PROPOFOL IV EMULSION 100 ML 19.98 MG IV CONT (22:52)
[2023-01-05 23:48] LABS: Glucose Point of Care 188 mg/dl (65-105)
[2023-01-06] VITALS (35 sets, daily range): BP systolic 115–184; BP diastolic 67–109; PULSE 49–130; RESP 14–30; TEMP 36.3–37.7; O2SAT 91–99
[2023-01-06] MEDS: LACTATED RINGERS 1,000 ML 125 ML IV CONT (01:11)
[2023-01-06] MEDS: diphenhydrAMINE HCl INJ 50 MG/ML VIAL IV PUSH (02:53)
[2023-01-06] MEDS: fentaNYL CITRATE INJ (*CRX) 100 MCG/2 ML VIAL 50 MCG IV PUSH (02:53)
[2023-01-06] MEDS: AMPICILLIN SULB 1.5 GM/NS 50ML 1.5 GM/50 ML VIAL IVPB ×4 (02:54→20:01)
[2023-01-06] MEDS: PROPOFOL IV EMULSION 100 ML 19.98 MG IV CONT (03:01)
[2023-01-06] MEDS: MIDAZOLAM 100MG/NS 100ML(*CRX) 100 MG/100 ML BAG 6 MG IV CONT (04:28)
[2023-01-06 04:38] LABS: Basophils Percent Auto 0.2 % (0.2-1.2); Hematocrit 42.4 % (42.0-52.0); Hemoglobin 14.2 g/dL (14.0-18.0); Immature Granulocyte Absolute 0.09 K/mm3 (0.00-0.031); Immature Granulocyte Percent A 0.8 % (0-0.5); Lymphocytes Absolute Auto 0.51 K/mm3 (0.9-3.2); Lymphocytes Percent Auto 4.3 % (18.3-44.2); Mean Corpuscular HGB Conc 33.5 g/dl (32-36); Mean Corpuscular Hemoglobin 32.3 pg (26-34); Mean Corpuscular Volume 96.6 fl (80-100); Mean Platelet Volume 9.7 fl (7.4-10.4); Monocytes Absolute Auto 0.6 K/mm3 (0.1-0.6); Monocytes Percent Auto 4.7 % (2.6-8.5); Neutrophils Absolute Auto 10.7 K/mm3 (1.3-6.7); Platelet Count Result 172 k/mm3 (150-375); Red Blood Count 4.39 M/mm3 (4.6-6.20); Red Cell Distribution Width 13.4 % (11.5-14.5); White Blood Count 11.8 K/mm3 (4.5-10.0)
[2023-01-06 05:09] LABS: Alanine Aminotransferase 13 U/L (6-50); Albumin Level 3.3 g/dL (3.5-5.1); Alkaline Phosphatase 40 U/L (38-126); Anion Gap 8 mmol/L (8-16); Aspartate Amino Transferase 17 U/L (17-59); Bilirubin,Total 0.4 mg/dL (0.2-1.3); Blood Urea Nitrogen 24 mg/dL (9-20); Calcium 8.4 mg/dL (8.4-10.2); Carbon Dioxide 22 mmol/L (22-30); Chloride 104 mmol/L (98-107); Estimated CRCL calculation 56 ml/min; Estimated Glomerular Filt Rate > 60; Glucose 155 mg/dL (65-110); Magnesium 2.4 mg/dL (1.6-2.3); Potassium 3.9 mmol/L (3.4-5.0); Sodium 134 mmol/L (137-145)
[2023-01-06 05:22] LABS: Alveolar/Arterial O2 Gradient 109.1 mmHg; Base Excess ABG 0.2 mEq/l (+/-2.0); Carboxyhemoglobin 0.4 % THb (0-2.0); Fractional Inspired Oxygen 30 %; HCO3 ABG 21.5 mEq/l (22.0-26.0); Methemoglobin ABG 0.3 %THb (0-1.5); Oxygen Content ABG 20.2 %vol (16.0-22.0); Oxygen Saturation ABG 96.3 % (95.0-100.0); PCO2 ABG 26.9 mmHg (35.0-45.0); PO2 ABG 73.2 mmHg (80.0-100.0); PO2 FiO2 Ratio Arterial Blood 2.44 %; Reduced Hemoglobin 4.3 %THb (0-5.0); Total Hemoglobin 15.1 g/dL (12.0-18.0)
[2023-01-06 05:23] LABS: Device VENTILATOR; Modified Allen's Test Pass; Site Drawn RIGHT RADIAL; pH ABG 7.521 (7.350-7.450)
[2023-01-06 05:24] LABS: Arterial Blood Gas PEEP 5 cmH2O; Arterial Blood Gas Tidal Volume 480 ml; Arterial Blood Gas Vent Mode CMV; Arterial Blood Gas Ventilator rate 22 /MIN
[2023-01-06] MEDS: hydrALAZINE HCL 20 MG/ML VIAL 10 MG IV PUSH ×2 (05:32→10:34)
[2023-01-06] MEDS: methylPREDNISolone SOD SUCC 125 MG VIAL 60 MG IV PUSH (05:33)
--- NOTE | 2023-01-06 08:04 | WPDINTPN ---
Progress Note: A&P Assessment and Plan (1) Acute respiratory failure: Code(s): J96.00 - Acute respiratory failure, unspecified whether with hypoxia or hypercapnia Status: Acute Assessment and Plan: Acute respiratory failure likely secondary to angioedema, significant swelling of the tongue all the way to the vallecula as examine by ENT using glide scope and fiberoptic scope, significant epiglottic edema, not a good view of the vocal cords, anesthesia was able to intubate the patient with difficulty and with limited views. -ABGs reviewed - currently on peep of 5, FiO2 of 30%. Decrease rate to 18 and tidal volume 450 -sedated with propofol infusion and neuromuscular blockade with Nimbex infusion -CT scan of the neck is pending. Will evaluate for weaning depending on the CT scan results -patient developed left lower lobe infiltrate possible aspiration pneumonia -pending blood and sputum cultures. Continue empiric Unasyn (2) Angioedema: Code(s): T78.3XXA - Angioneurotic edema, initial encounter Status: Acute Assessment and Plan: Patient presented the ED with angioedema with significant swelling of the tongue and neck patient was a difficult airway and so was taken to the OR by Anesthesia and ENT to obtain in airway. -patient had no other symptoms suggestive of allergic or anaphylactic reaction. No family history or similar incidents in the past. Patient did not eat anything that morning apart from coffee as per his . All these things point towards angioedema secondary to David inhibitor as the likely etiology -01/04 anaesthesia were able to obtain an airway after prolonged attempt but his O2 sats remained above 95% at all times. -in the ER Patient was treated with IV Solu-Medrol, IV famotidine, IM epinephrine was given and IV Benadryl in the ER -patient was started on patient on IV Solu-Medrol q.6 hours, IV famotidine, IV Benadryl on admission which I were continued . Will DC them at this time -swelling appears to be clinically improved but still present on the left side of the neck. Cuff leak is present although patient has a small sided tube. CT scan of soft tissue neck for better assessment of swelling is pending at this time (3) Aspiration pneumonia: Code(s): J69.0 - Pneumonitis due to inhalation of food and vomit Status: Acute Assessment and Plan: See above (4) Essential hypertension: Code(s): I10 - Essential (primary) hypertension Status: Acute Assessment and Plan: Currently on propofol infusion -hydralazine p.r.n. (5) Tobacco use: Code(s): Z72.0 - Tobacco use Status: Acute Assessment and Plan: According the patient smokes half a packet of cigarettes per day, he is secretive about his smoking habits per - Will counselor/art therapist patient on cessation of smoking once he is extubated and awake (6) Alcohol use: Code(s): Z78.9 - Other specified health status Status: Acute Assessment and Plan: Patient drinks about 4 glasses of wine daily Add thiamine and folic acid -once he is extubated will monitor for withdrawal Plan DVT prophylaxis: Lovenox Stress ulcer prophylaxis: Famotidine Nutrition: Start tube feeds Code Status: Full code Critical Care Time Spent: 30 minutes Due to a high probability of clinically significant, life threatening deterioration, the patient required my highest level of preparedness to intervene emergently and I personally spent this critical care time directly and personally managing the patient. This critical care time included obtaining a history; examining the patient; pulse oximetry; ordering and review of studies; arranging urgent treatment with development of a management plan; evaluation of patient's response to treatment; frequent reassessment; and discussions with other providers. It was exclusive of separately billable procedures and treating other patients and teaching time. Please see Assessm
[2023-01-06] MEDS: FOLIC ACID 1 MG TABLET FEED TUBE (08:58)
[2023-01-06] MEDS: ENOXAPARIN 40 MG/0.4 ML SYRINGE SUB-Q (08:58)
[2023-01-06] MEDS: FAMOTIDINE 20 MG/2 ML VIAL IV PUSH ×2 (08:58→20:01)
[2023-01-06] MEDS: THIAMINE HCL 100 MG TABLET FEED TUBE (08:58)
[2023-01-06] MEDS: MINERAL OIL/WHITE PETROLATUM OINTMENT 1 APPLIC EACH EYE (08:59)
[2023-01-06] MEDS: PROPOFOL IV EMULSION 100 ML 22.2 MG IV CONT (09:11)
--- NOTE | 2023-01-06 10:36 | PCRCNOTE ---
pt placed on 5/5 SBT at 10:32
[2023-01-06] MEDS: LABETALOL HCL INJ 100 MG/20 ML VIAL 20 MG IV PUSH ×2 (11:02→13:15)
--- NOTE | 2023-01-06 11:05 | WPDANESEPP ---
Anes - Eval Pre Procedure Procedure: Operation Date: 01/04/23 11:30 Proposed Procedures Emergency intubation Date/Time: 01/06/23 11:05 Preop Diagnosis: angioedema Pre Op Diagnosis: Emergent Intubation Patient Data Age: 77 Gender: M Height: 1.75 m Weight: 81.5 kg Last Vital Signs Temp 36.4 C 01/06/23 08:00 Pulse 90 01/06/23 10:00 Resp 18 01/06/23 10:00 BP 167/89 H 01/06/23 10:47 Pulse Ox 96 01/06/23 10:00 O2 Del Method Mechanical Ventilation 01/06/23 08:00 FiO2 30 01/06/23 08:00 Allergies Allergy/AdvReac Type Severity Reaction Status Date / Time lisinopril Allergy Severe Anaphylaxis Verified 01/04/23 13:11 /ANGIOEDEMA Home Medications Medication Instructions Recorded Confirmed Type lisinopril 20 1 tablet PO DAILY 01/04/23 01/04/23 History mg-hydrochlorothiazide 12.5 mg tablet Laboratory Tests 01/05/23 01/05/23 01/05/23 11:54 18:01 23:41 WBC RBC Hgb Hct MCV MCH MCHC RDW Plt Count MPV Immature Gran % (Auto) Neut % (Auto) Lymph % (Auto) [place] % (Auto) Eos % (Auto) Baso % (Auto) Lymph # (Auto) [place] # (Auto) Eos # (Auto) Baso # (Auto) Abs Immat Gran (auto) Absolute Neuts (auto) Absolute Nucleated RBC Nucleated RBC % Puncture Site ABG pH ABG pCO2 ABG pO2 ABG PO2/FiO2 Ratio ABG HCO3 ABG O2 Saturation ABG O2 Content ABG Base Excess A-a Gradient Oxyhemoglobin Carboxyhemoglobin Methemoglobin Reduced Hemoglobin Total Hemoglobin O2 Delivery Device O2 Liters/Min Minute Volume Vent Rate Vent Mode FiO2 Tidal Volume PEEP Peak Inspir Pressure Pressure Support Sodium Potassium Chloride Carbon Dioxide Anion Gap BUN Creatinine Estim Creat Clear Calc Estimated GFR Glucose POC Capillary Glucose 173 H mg/dl 185 H mg/dl 188 H mg/dl (65-105) (65-105) (65-105) Calcium Magnesium Total Bilirubin AST ALT Alkaline Phosphatase Total Protein Albumin 01/06/23 01/06/23 04:20 05:11 WBC 11.8 H K/mm3 (4.5-10.0) RBC 4.39 L M/mm3 (4.6-6.20) Hgb 14.2 g/dL (14.0-18.0) Hct 42.4 % (42.0-52.0) MCV 96.6 fl (80-100) MCH 32.3 pg (26-34) MCHC 33.5 g/dl (32-36) RDW 13.4 % (11.5-14.5) Plt Count 172 k/mm3 (150-375) MPV 9.7 fl (7.4-10.4) Immature Gran % (Auto) 0.8 H % (0-0.5) Neut % (Auto) 90.0 H % (45.5-73.1) Lymph % (Auto) 4.3 L % (18.3-44.2) [place] % (Auto) 4.7 % (2.6-8.5) Eos % (Auto) 0.0 % (0-4.4) Baso % (Auto) 0.2 % (0.2-1.2) Lymph # (Auto) 0.51 L K/mm3 (0.9-3.2) [place] # (Auto) 0.6 K/mm3 (0.1-0.6) Eos # (Auto) 0.0 K/mm3 (0-0.3) Baso # (Auto) 0.0 K/mm3 (0.0-0.1) Abs Immat Gran (auto) 0.09 H K/mm3 (0.00-0.031) Absolute Neuts (auto) 10.7 H K/mm3 (1.3-6.7) Absolute Nucleated RBC 0.0 K/mm3 (0.0-0.012) Nucleated RBC % 0.0 % (0.0-0.2) Puncture Site Right radial ABG pH 7.521 H* (7.350-7.450) ABG pCO2 26.9 L mmHg (35.0-45.0) ABG pO2 73.2 L mmHg (80.0-100.0) ABG PO2/FiO2 Ratio 2.44 % ABG HCO3 21.5 L mEq/l (2
--- NOTE | 2023-01-06 11:05 | PCFNICU ---
ICU Rounding Note: Pt current nutrition is Vital AF 1.2 at 45 ml/hr. Last recorded weight is 81.5 kg, up from 72.5 kg on admit. Bowel Motility: No BM reported. Labs Reviewed:Glu 155, Na 134, BUN 24 Meds Noted:Lovenox, NovoLog, Thiamine, Folic Acid. Skin: WNL Additional Notes: Patient remains on mechanical vent-breathing trail today. Sedation has been paused. Spoke with Striker Out today, plans to extubate if possible. Follow daily in ICU rounds, Follow up every Wednesday and Wednesday.
[2023-01-06 12:09] LABS: Base Excess ABG -0.6 mEq/l (+/-2.0); Fractional Inspired Oxygen 30 %; HCO3 ABG 22.9 mEq/l (22.0-26.0); Oxygen Content ABG 22.2 %vol (16.0-22.0); Oxyhemoglobin 94.7 % THb (90.0-100.0); PO2 ABG 77.8 mmHg (80.0-100.0); PO2 FiO2 Ratio Arterial Blood 2.59 %; Total Hemoglobin 16.7 g/dL (12.0-18.0); pH ABG 7.434 (7.350-7.450)
[2023-01-06 12:10] LABS: Glucose Point of Care 144 mg/dl (65-105)
[2023-01-06 12:10] LABS: Modified Allen's Test Pass; Site Drawn RIGHT RADIAL
[2023-01-06 12:11] LABS: Device VENTILATOR
[2023-01-06 12:12] LABS: Arterial Blood Gas Vent Mode SPONTANEOUS
[2023-01-06 12:13] LABS: Arterial Blood Gas PEEP 5 cmH2O; Arterial Blood Gas Pressure Support 5 cmH2O
--- NOTE | 2023-01-06 12:39 | P.PNCROSS_ITS ---
Event Note Event Note Event Note: CT scan results reviewed. Weaning trial done 08/14. ABG RSBI and vitals accepta ble. Patient has audible cuff leak around ETT. Patient was extubated. Patient now maintaining saturation on nasal cannula and in no respiratory distress. No inspiratory stridor although he does have significant secretions which are being suction. Continue close monitoring. Spoke to his prior to extubation regarding possible risk of extubation failure and requiring re-intubation. She verbalized understanding.
[2023-01-06 12:47] LABS: Triglycerides 156 mg/dL (<150)
[2023-01-06] MEDS: dexmedeTOMIDine 400 MCG/100 ML 400 MCG/100 ML BAG IV CONT (13:15)
--- NOTE | 2023-01-06 14:15 | PM.IMPN ---
Progress Note: A&P Assessment and Plan (1) Acute respiratory failure: Code(s): J96.00 - Acute respiratory failure, unspecified whether with hypoxia or hypercapnia Status: Acute Assessment and Plan: Acute respiratory failure likely secondary to angioedema, significant swelling of the tongue all the way to the vallecula as examine by ENT using glide scope and fiberoptic scope, significant epiglottic edema, not a good view of the vocal cords, anesthesia was able to intubate the patient with difficulty and with limited views. Vent Management as per microarray specialist -sedated with propofol infusion and neuromuscular blockade with Nimbex infusion -CT scan of the neck is pending. Will evaluate for weaning depending on the CT scan results -patient developed left lower lobe infiltrate possible aspiration pneumonia -pending blood and sputum cultures. Continue empiric Unasyn (2) Angioedema: Code(s): T78.3XXA - Angioneurotic edema, initial encounter Status: Acute Assessment and Plan: Patient presented the ED with angioedema with significant swelling of the tongue and neck patient was a difficult airway and so was taken to the OR by Anesthesia and ENT to obtain in airway. -patient had no other symptoms suggestive of allergic or anaphylactic reaction. No family history or similar incidents in the past. Patient did not eat anything that morning apart from coffee as per his . All these things point towards angioedema secondary to David inhibitor as the likely etiology -01/04 anaesthesia were able to obtain an airway after prolonged attempt but his O2 sats remained above 95% at all times. -in the ER Patient was treated with IV Solu-Medrol, IV famotidine, IM epinephrine was given and IV Benadryl in the ER -patient was started on patient on IV Solu-Medrol q.6 hours, IV famotidine, IV Benadryl on admission which were continued -swelling appears to be clinically improved but still present on the left side of the neck. (3) Aspiration pneumonia: Code(s): J69.0 - Pneumonitis due to inhalation of food and vomit Status: Acute Assessment and Plan: See above (4) Essential hypertension: Code(s): I10 - Essential (primary) hypertension Status: Acute Assessment and Plan: Currently on propofol infusion -hydralazine p.r.n. (5) Tobacco use: Code(s): Z72.0 - Tobacco use Status: Acute Assessment and Plan: According the patient smokes half a packet of cigarettes per day, he is secretive about his smoking habits per - Will certified alcohol and drug counselor patient on cessation of smoking once he is extubated and awake (6) Alcohol use: Code(s): Z78.9 - Other specified health status Status: Acute Assessment and Plan: Patient drinks about 4 glasses of wine daily Add thiamine and folic acid -once he is extubated will monitor for withdrawal Time Spent With Patient Time with patient: 15 - 25 minutes Subjective Date/time seen: 01/06/23 14:15 Interval history: remains intubated Review of Systems Review of Systems: ROS unobtainable: Yes unobtainable due to endotracheal tube Exam Narrative: General: Intubated and sedated in no distress HEENT:? Pupils are small but reactive, sclerae is clear, some swelling of the tongue, tongue is protruding out of the mouth size 6.5 ET tube Neck:? Swelling of the left side of the neck with resolution of swelling of the tongue. Respiratory:? Clear to auscultation bilaterally, no wheezing, adequate air entry Cardiac:? S1-S2 is normal, regular rate and rhythm Abdomen:? Soft, nontender, nondistended, normoactive bowel sounds Extremities:? No edema, palpable pedal pulses Neuro:? Patient is sedated and paralyzed with neuromuscular blockade due to difficult airway Skin:? No skin lesions noted Psych:? Unable to assess at this time Objective Data Vital Signs Vital Signs: Vital Signs - 24 hr 01/05/23 14:57 01/05/23 16:00 01/05/23 16:0
[2023-01-06 18:09] LABS: Glucose Point of Care 104 mg/dl (65-105)
[2023-01-07] VITALS (28 sets, daily range): BP systolic 134–188; BP diastolic 49–99; PULSE 61–156; RESP 12–26; TEMP 36.4–37.2; O2SAT 92–100
[2023-01-07 00:20] LABS: Glucose Point of Care 120 mg/dl (65-105)
[2023-01-07] MEDS: AMPICILLIN SULB 1.5 GM/NS 50ML 1.5 GM/50 ML VIAL IVPB ×3 (03:08→14:17)
[2023-01-07 04:49] LABS: Basophils Percent Auto 0.1 % (0.2-1.2); Hematocrit 41.2 % (42.0-52.0); Immature Granulocyte Absolute 0.05 K/mm3 (0.00-0.031); Immature Granulocyte Percent A 0.5 % (0-0.5); Lymphocytes Absolute Auto 1.13 K/mm3 (0.9-3.2); Lymphocytes Percent Auto 10.4 % (18.3-44.2); Mean Corpuscular Hemoglobin 32.3 pg (26-34); Mean Corpuscular Volume 94.9 fl (80-100); Mean Platelet Volume 9.8 fl (7.4-10.4); Monocytes Absolute Auto 0.8 K/mm3 (0.1-0.6); Monocytes Percent Auto 7.4 % (2.6-8.5); Neutrophils Absolute Auto 8.9 K/mm3 (1.3-6.7); Neutrophils Percent Auto 81.6 % (45.5-73.1); Platelet Count Result 174 k/mm3 (150-375); Red Blood Count 4.34 M/mm3 (4.6-6.20); Red Cell Distribution Width 13.6 % (11.5-14.5); White Blood Count 10.9 K/mm3 (4.5-10.0)
[2023-01-07 05:01] LABS: Alveolar/Arterial O2 Gradient 45.4 mmHg; Base Excess ABG 4.7 mEq/l (+/-2.0); Fractional Inspired Oxygen 21 %; HCO3 ABG 27.5 mEq/l (22.0-26.0); Methemoglobin ABG 0.3 %THb (0-1.5); Oxygen Content ABG 19.1 %vol (16.0-22.0); Oxyhemoglobin 92.4 % THb (90.0-100.0); PO2 ABG 62.4 mmHg (80.0-100.0); PO2 FiO2 Ratio Arterial Blood 2.97 %; Reduced Hemoglobin 7.3 %THb (0-5.0); Total Hemoglobin 14.7 g/dL (12.0-18.0)
[2023-01-07 05:03] LABS: Device ROOM AIR; Modified Allen's Test Pass; Site Drawn RIGHT RADIAL; pH ABG 7.513 (7.350-7.450)
[2023-01-07 05:10] LABS: Alanine Aminotransferase 20 U/L (6-50); Albumin Level 3.3 g/dL (3.5-5.1); Alkaline Phosphatase 30 U/L (38-126); Anion Gap 6 mmol/L (8-16); Aspartate Amino Transferase 45 U/L (17-59); Bilirubin,Total 0.8 mg/dL (0.2-1.3); Blood Urea Nitrogen 22 mg/dL (9-20); Calcium 8.4 mg/dL (8.4-10.2); Carbon Dioxide 26 mmol/L (22-30); Chloride 104 mmol/L (98-107); Estimated CRCL calculation 61 ml/min; Estimated Glomerular Filt Rate > 60; Glucose 105 mg/dL (65-110); Magnesium 2.1 mg/dL (1.6-2.3); Potassium 3.4 mmol/L (3.4-5.0); Sodium 136 mmol/L (137-145)
[2023-01-07] MEDS: dexmedeTOMIDine 400 MCG/100 ML 400 MCG/100 ML BAG 6.11 MCG IV CONT (05:38)
[2023-01-07] MEDS: THIAMINE HCL 100 MG TABLET PO (08:41)
[2023-01-07] MEDS: FAMOTIDINE 20 MG/2 ML VIAL IV PUSH (08:41)
[2023-01-07] MEDS: ENOXAPARIN 40 MG/0.4 ML SYRINGE SUB-Q (08:41)
[2023-01-07] MEDS: FOLIC ACID 1 MG TABLET PO (08:41)
--- NOTE | 2023-01-07 08:47 | WPDINTPN ---
Progress Note: A&P Assessment and Plan (1) Acute respiratory failure: Code(s): J96.00 - Acute respiratory failure, unspecified whether with hypoxia or hypercapnia Status: Acute Assessment and Plan: Acute respiratory failure likely secondary to angioedema, significant swelling of the tongue all the way to the vallecula as examine by ENT using glide scope and fiberoptic scope, significant epiglottic edema, not a good view of the vocal cords, anesthesia was able to intubate the patient with difficulty and with limited views. Patient was intubated -sedated with propofol infusion and neuromuscular blockade with Nimbex infusion -CT scan of the neck 01/06 showed superficial soft tissue swelling of the neck left worse than right - 01/06 extubated after weaning trial. - 01/07 patient on nasal cannula Add incentive spirometry -patient developed left lower lobe infiltrate possible aspiration pneumonia negative blood and sputum cultures. Continue empiric Unasyn until patient can take p.o. and then switched to p.o. antibiotics (2) Angioedema: Code(s): T78.3XXA - Angioneurotic edema, initial encounter Status: Acute Assessment and Plan: Patient presented the ED with angioedema with significant swelling of the tongue and neck patient was a difficult airway and so was taken to the OR by Anesthesia and ENT to obtain in airway. -patient had no other symptoms suggestive of allergic or anaphylactic reaction. No family history or similar incidents in the past. Patient did not eat anything that morning apart from coffee as per his . All these things point towards angioedema secondary to David inhibitor as the likely etiology -01/04 anaesthesia were able to obtain an airway after prolonged attempt but his O2 sats remained above 95% at all times. -in the ER Patient was treated with IV Solu-Medrol, IV famotidine, IM epinephrine was given and IV Benadryl in the ER -patient was treated with IV Solu-Medrol q.6 hours, IV famotidine, IV Benadryl for 48 hours which I were continued . Now off -swelling appears to be clinically improved but still present on the left side of the neck. Cuff leak is present although patient has a small sided tube. CT scan of soft tissue neck as above -01/06 extubated (3) Aspiration pneumonia: Code(s): J69.0 - Pneumonitis due to inhalation of food and vomit Status: Acute Assessment and Plan: See above (4) Essential hypertension: Code(s): I10 - Essential (primary) hypertension Status: Acute Assessment and Plan: Resume hydrochlorothiazide and start Norvasc Lisinopril discontinued (5) Tobacco use: Code(s): Z72.0 - Tobacco use Status: Acute Assessment and Plan: According the patient smokes half a packet of cigarettes per day, he is secretive about his smoking habits per - Will savings counselor patient on cessation of smoking once he is extubated and awake (6) Alcohol use: Code(s): Z78.9 - Other specified health status Status: Acute Assessment and Plan: Patient drinks about 3 glasses of wine daily Continue thiamine and folic acid He was suspected to having alcohol withdrawal symptoms yesterday and was started on Precedex. Will discontinue Precedex this morning and add p.r.n. Ativan if there are any signs of withdrawal Plan DVT prophylaxis: Lovenox Code Status: Full code Consult speech for swallow evaluation PT OT Incentive spirometry Up in chair Transfer out of ICU today Subjective Date/time seen: 01/07/23 Patient was extubated yesterday after a successful weaning trial. That he has done well and he is on nasal cannula. No stridor or respiratory difficulty. This morning he states he feels better denies any specific complaints.. He was on Precedex infusion yesterday afternoon for possible alcohol withdrawal and has been on low-dose through the night. This morning he told me that he drinks 3 glasses of wine every day
[2023-01-07] MEDS: amLODIPine BESYLATE 5 MG TABLET PO (08:49)
[2023-01-07] MEDS: POTASSIUM CHLORIDE 20 MEQ PACKET (FOR LIQUID) 40 MEQ PO (08:49)
[2023-01-07] MEDS: hydroCHLOROthiazide 25 MG TABLET PO (08:51)
[2023-01-07] MEDS: LORazepam (*CRX) 1 MG TABLET PO ×2 (10:10→16:32)
[2023-01-07] MEDS: hydrALAZINE HCL 20 MG/ML VIAL 10 MG IV PUSH (10:10)
--- NOTE | 2023-01-07 10:17 | PCSTNOTE ---
Bedside swallowing evaluation completed. Patient was positioned upright in chair at bedside. Modified oral peripheral examination results show generalized reduced oral/motor strength (weakness). Speech intelligibility is within normal limits. Trials of thin liquid by spoon, cup, and straw were given and possible signs of aspiration (coughing, eyes watering) were observed with straw. With spoon and cup trials of thin liquids and moderately thickened liquids and pureed trials no coughing occurred but other signs of possible aspiration were present including watering eyes and shortness of breath. Based on these results it is recommended that patient remain NPO until a modified barium swallow study can be completed to determine the presence or absence of aspiration and to develop a treatment plan if appropriate. Thank you for the referral of this patient.
--- NOTE | 2023-01-07 11:07 | PCFNICU ---
ICU Rounding Note: Pt current nutrition is NPO. Last recorded weight is 81 kg, stable. Bowel Motility:No BM reported Labs Reviewed:BUN 22, Na 136, Alb 3.3 Meds Noted: Lovenox, NovoLog,Folic Acid,Thiamine Skin: WNL Additional Notes:Patient has been extubated. Bedside swallow performed this morning with plans for MBS for further evaluation. Will proceed with recommendations once swallow eval has been complete. Following daily in ICU rounds and reassessing every 3 days.
--- NOTE | 2023-01-07 13:17 | PCSTNOTE ---
Modified barium swallow study (MBSS) completed. First attempted earlier today but nasogastric tube (ng tube) was seen to be looped and resting in the valleculae, so study was stopped and patient returned to his room where ng tube was removed. Second attempt to complete MBSS was successful. Trials of thin liquid by spoon, cup, and straw; mildly thickened liquids by cup; pureed consistency by spoon; mixed consistency by spoon; and solid consistency by fingers were given. Trace residue in valleculae was noted with all consistencies. This was reduced with multiple swallows. Oral transit time was reduced for all consistencies. No aspiration or penetration were noted with any consistency or amount. Recommendation: soft and bite sized diet with thin liquids. Swallowing precaution recommendations posted in chart. No further speech therapy is recommended for this patient. Thank you for the referral of this patient.
--- NOTE | 2023-01-07 14:40 | PC.NURSE ---
This patient, Rob Olivier, was transferred to [[id number] ] on 01/07/23 at 1440. Personal belongings sent with patient. Report given to [ Rupinder ]. Appropriate documentation sent with patient.
--- NOTE | 2023-01-07 15:57 | PC.NURSE ---
Pt oriented to new room 248 from ICU 5. Pt resting comfortably.
[2023-01-07] MEDS: LABETALOL HCL INJ 100 MG/20 ML VIAL 20 MG IV PUSH (18:23)
[2023-01-07] MEDS: LORazepam INJ (*CRX) 2 MG/ML VIAL IV PUSH (18:47)
[2023-01-07] MEDS: chlordiazePOXIDE (*CRX) 25 MG CAPSULE PO (19:02)
[2023-01-07 19:52] LABS: Lactic Acid Reflex 1.4 mmol/L (0.7-2.0)
--- NOTE | 2023-01-07 20:00 | ECG_ITS ---
Measurements Intervals [place] Rate: 147 P: SD: 0 QRS: 38 QRSD: 86 T: 41 QT: 270 QTc: 423 Interpretive Statements ATRIAL FIBRILLATION WITH RAPID VENTRICULAR RESPONSE BASELINE ARTIFACT- I, II, III, AVR, AVL, AVF, V1, V4 ABNORMAL ECG NO PREVIOUS ECG AVAILABLE FOR COMPARISON Electronically Signed On 01-07-2023 20:32:40 CDT by Wojciech Garcia D.O.
[2023-01-07] MEDS: AMOXICILLIN/CLAVULANATE K 875-125 MG TAB 1 TABLET PO (20:28)
--- NOTE | 2023-01-07 21:34 | P.PNCROSS_ITS ---
Event Note Event Note Event Note: Bedside RN reported new tachycardia. Rate between 130-160, appears to be resti ng in the 140s. EKG shows A-Fib RVR, rate of 147. No previous history of AFib. Tachycardia originally contributed to possible alcohol withdrawal, given 2 mg of IV Ativan without resolution of tachycardia and CIWA of 8 post-lpn or medical assistant. Patient is orientated to self only. Transferred to IMU for diltiazem gtt. initial rate of 5, titrated to 10.
--- NOTE | 2023-01-07 22:08 | PC.NURSE ---
This patient, Rob Olivier, was transferred to [facility] on 01/07/23 at 2209. Personal belongings sent with patient. Report given to Raya GREWAL. Appropriate documentation sent with patient.
[2023-01-07] MEDS: dilTIAZem 100 MG/100 ML 100 MG/100 ML BAG IV CONT (22:20)
--- NOTE | 2023-01-07 22:50 | PC.NURSE ---
This patient, Rob Olivier, was received from [[id number] ] on 01/07/23 at 2205. Patient/family oriented to unit policies and routines
--- NOTE | 2023-01-07 22:52 | PC.NURSE ---
RN called and left message to patient's about transfer to room 205-1.
[2023-01-08] VITALS (22 sets, daily range): BP systolic 138–157; BP diastolic 75–86; PULSE 64–144; RESP 16–21; TEMP 36.1–36.6; O2SAT 94–98
--- NOTE | 2023-01-08 | ECHO_ITS ---
Patient Info Name: Rob Olivier Age: 77 years : 1945 Gender: Male Ht: 69 in Wt: 178 lbs BSA: 2.00 m2 HR: 91 bpm BP: 148 / 86 mmHg Heart Rhythm: Atrial Fibrillation Technical Quality: Fair Exam Date: 01/08/2023 1:40 PM Exam Location: [facility] Pulmonary Exam Room: [facility] Patient Status: Inpatient Admit Date: 01/04/2023 Staff Ordering Physician: Theodora Santana MD [employer] Trader: Nataly Moe RDCS Attending Provider: Tyron Cruz MD Exam Type: CA echo doppler color flow Study Info Indications - afib Complete two-dimensional, color flow and Doppler transthoracic echocardiogram is performed. Summary 1. Complete two-dimensional, color flow and Doppler transthoracic echocardiogram is performed. 2. Left ventricular chamber dimension is normal. 3. Left ventricular systolic function is normal, estimated at 60-65%. 4. The left ventricular diastolic function is abnormal. 5. E/e' 10 is mildly elevated. 6. Atrial fibrillation. 7. Left atrial chamber dimension is moderately enlarged. 8. There is mild aortic valve sclerosis. 9. There is mild aortic valve regurgitation. 10. There is mild tricuspid valve regurgitation. 11. No pulmonary hypertension, estimated pulmonary arterial systolic pressure is 35 mmHg. Left Ventricle E/e' 10 is mildly elevated. Atrial fibrillation. Left ventricular chamber dimension is normal. Left ventricular systolic function is normal, estimated at 60-65%. The left ventricular diastolic function is abnormal. Right Ventricle Right ventricular systolic function is normal and with normal TAPSE 2.2 cm. Right ventricular chamber dimension is normal. Left Atria Left atrial chamber dimension is moderately enlarged. Right Atria Right atrial chamber dimension is normal. Aortic Valve The aortic valve is trileaflet. There is mild aortic valve sclerosis. There is no aortic valve stenosis. There is mild aortic valve regurgitation. Pulmonic Valve There is no pulmonic regurgitation. Mitral Valve There is no mitral valve stenosis. There is no mitral valve regurgitation. Tricuspid Valve There is mild tricuspid valve regurgitation. No pulmonary hypertension, estimated pulmonary arterial systolic pressure is 35 mmHg. Pericardium/Pleural There is no pericardial effusion. Inferior Vena Cava Normal inferior vena cava with >50% collapse upon inspiration consistent with normal right atrial pressure, 5 mmHg. Aorta The aortic root size at the sinus of Valsalva is normal. Left Ventricular Outflow Tract Name Value Normal LVOT 2D LVOT Diameter 2.1 cm LVOT Doppler LVOT Peak Gradient 6 mmHg LVOT Mean Gradient 4 mmHg LVOT VTI 23 cm LVOT VTI/AV VTI Ratio 0.8 LVOT Stroke Volume 77 ml LVOT CO 19.5 l/min LVOT CI 9.8 l/min/m2 Pulmonic Valve Name Value Normal PV Doppler
[2023-01-08 04:18] LABS: Basophils Percent Auto 0.2 % (0.2-1.2); Eosinophils Percent Auto 0.1 % (0-4.4); Hematocrit 40.9 % (42.0-52.0); Hemoglobin 13.9 g/dL (14.0-18.0); Immature Granulocyte Absolute 0.05 K/mm3 (0.00-0.031); Immature Granulocyte Percent A 0.5 % (0-0.5); Lymphocytes Absolute Auto 1.52 K/mm3 (0.9-3.2); Lymphocytes Percent Auto 16.6 % (18.3-44.2); Mean Corpuscular Hemoglobin 31.9 pg (26-34); Mean Corpuscular Volume 93.8 fl (80-100); Mean Platelet Volume 9.6 fl (7.4-10.4); Monocytes Absolute Auto 0.9 K/mm3 (0.1-0.6); Monocytes Percent Auto 9.4 % (2.6-8.5); Neutrophils Absolute Auto 6.7 K/mm3 (1.3-6.7); Neutrophils Percent Auto 73.2 % (45.5-73.1); Platelet Count Result 175 k/mm3 (150-375); Red Blood Count 4.36 M/mm3 (4.6-6.20); Red Cell Distribution Width 13.5 % (11.5-14.5); White Blood Count 9.1 K/mm3 (4.5-10.0)
[2023-01-08 04:30] LABS: Alanine Aminotransferase 24 U/L (6-50); Albumin Level 3.4 g/dL (3.5-5.1); Alkaline Phosphatase 42 U/L (38-126); Anion Gap 10 mmol/L (8-16); Aspartate Amino Transferase 38 U/L (17-59); Bilirubin,Total 1.1 mg/dL (0.2-1.3); Blood Urea Nitrogen 17 mg/dL (9-20); Calcium 8.6 mg/dL (8.4-10.2); Carbon Dioxide 24 mmol/L (22-30); Chloride 102 mmol/L (98-107); Estimated CRCL calculation 61 ml/min; Estimated Glomerular Filt Rate > 60; Glucose 96 mg/dL (65-110); Potassium 3.2 mmol/L (3.4-5.0); Sodium 136 mmol/L (137-145)
--- NOTE | 2023-01-08 08:24 | PM.CNCAR ---
Assessment and Plan Assessment and plan (1) Atrial fibrillation with RVR: Code(s): I48.91 - Unspecified atrial fibrillation Status: Acute Assessment and Plan: Asymptomatic. New onset. Rate controlled on Diltiazem drip. Stop drip. Start Diltiazem CD 360 mg daily. Start Amlodipine. Monitor HR. If HR is high then will start Metoprolol also. Start Eliquis 5 mg BID. Obtain echo. (2) Aspiration pneumonia: Code(s): J69.0 - Pneumonitis due to inhalation of food and vomit Status: Acute Assessment and Plan: On antibiotics as per hospitalist. (3) Alcohol use: Code(s): Z78.9 - Other specified health status Status: Acute Assessment and Plan: Counseled regarding alcohol cessation. (4) Tobacco use: Code(s): Z72.0 - Tobacco use Status: Acute Assessment and Plan: Counseled regarding smoking cessation. (5) Essential hypertension: Code(s): I10 - Essential (primary) hypertension Status: Acute Assessment and Plan: Stable. Avoid David inh as it may have caused angioedema. History of Present Illness History of Present Illness Consult date/time: 01/08/23 08:24 Reason For Visit: Emergent Intubation Narrative: 77 yr old man was admitted for sob and angioedema with respiratory failure. He has a history of hypertension, smoking and alcohol use. Patient was intubated on admission due to angioedema and subsequently extubated. Yesterday he became tachycardic and EKG showed rapid atrial fibrillation. Diltiazem drip started and rate controlled. He is feeling OK currently. No chest pain, sob, palpitations. He normally can walk 2 miles. Review of Systems Review of Systems: All systems reviewed & are unremarkable except as noted in HPI and below Constitutional: Constitutional: Reports as per HPI, Denies chills and Denies fever(s) Cardiovascular: Cardiovascular: Reports as per HPI, Denies chest pain, Denies irregular heart rhythm, Denies leg edema and Denies lightheadedness Respiratory: Respiratory: Reports as per HPI and Denies dyspnea Gastrointestinal: Gastrointestinal: Reports as per HPI and Denies abdominal pain Genitourinary: Genitourinary: Reports as per HPI and Denies dysuria Musculoskeletal: Musculoskeletal: Reports as per HPI Neurologic: Reports as per HPI, Denies dizziness and Denies syncope [facility] Past Medical History Medical History Hypertension Family History Family History (Updated 01/05/23 @ 13:54 by Mari Meléndez PA-C) Other Family history unknown Social History Social History (Updated 01/05/23 @ 13:54 by Mari Meléndez PA-C) Social History: Surrogate medical decision maker: Emily Montesinos, spouse. Code status: Full code. Smoking packs per day: 0.5 Smoking cigarettes per day: 10.0 Smoking status: Current every day smoker Alcohol intake: current Alcohol use details: 3-4 glasses of wine per day. Substance use: never Spiritual care concerns: No Meds Home Medications and Allergies Home Medications Medication Instructions Recorded Confirmed Type lisinopril 20 1 tablet PO DAILY 01/04/23 01/04/23 History mg-hydrochlorothiazide 12.5 mg tablet Allergies Allergy/AdvReac Type Severity Reaction Status Date / Time lisinopril Allergy Severe Anaphylaxis Verified 01/04/23 13:11 /ANGIOEDEMA Vital Signs Vital Signs - 24 hr 01/07/23 10:00 01/07/23 10:00 01/07/23 11:51 Temperature 98 F Pulse Rate 98 98 109 H Pulse Rate [Monitor] Pulse Rate [Right Pedal (Dorsalis Pedis)] Respiratory Rate 26 H 23 H Blood Pressure 188/99 H Pulse Oximetry 97 96 Oxygen Delivery 01/07/23 12:00 01/07/23 12:52 01/07/23 12:34 Temperature Pulse Rate 108 H 97 Pulse Rate [Monitor] Pulse Rate [Right Pedal (Dorsalis Pedis)] Respiratory Rate 25 H Blood Pressure 152/85 H Pulse Oximetry 96 97 Oxygen D
--- NOTE | 2023-01-08 09:30 | PM.IMPN ---
Progress Note: A&P Assessment and Plan (1) Acute respiratory failure: Code(s): J96.00 - Acute respiratory failure, unspecified whether with hypoxia or hypercapnia Status: Acute (2) Angioedema: Code(s): T78.3XXA - Angioneurotic edema, initial encounter Status: Acute Assessment and Plan: (3) Aspiration pneumonia: Code(s): J69.0 - Pneumonitis due to inhalation of food and vomit Status: Acute (4) Essential hypertension: Code(s): I10 - Essential (primary) hypertension Status: Acute (5) Tobacco use: Code(s): Z72.0 - Tobacco use Status: Acute (6) Alcohol use: Code(s): Z78.9 - Other specified health status Status: Acute Plan ?77-year-old male with hypertension who presented to the emergency department for evaluation of tongue swelling. . About 2 hours prior to arrival he developed swelling in the tongue and throat. Ultimately he started to experience shortness of breath and had difficulties maintaining secretions and he came in for evaluation. He was noted to have significant edema of the tongue and neck on arrival to the ER and he was taken immediately to the operating room where he was intubated by the anesthesiologist; ENT was also at bedside and available should a surgical airway become necessary. SpO2 remained above 95% during attempts at intubation. He was treated with IV methylprednisolone, diphenhydramine, and famotidine as well as IM epinephrine. He was brought to the ICU sedated. He was on lisinopril for many years.? He has not had any recent changes in medications or new exposures according to his . 1. Acute hypoxic respiratory: acute respiratory failure likely secondary to angioedema Has been extubated on 01/06 Currently on RA Resolved 2. Angioedema: Patient presented the ED with angioedema with significant swelling of the tongue and neck patient was a difficult airway and so was taken to the OR by Anesthesia and ENT to obtain in airway. Lisinopril was stopped Treated with benadryl, solumedrol Angioedema has resolved CT neck was reviewed. 3. Aspiration pneumonia: Treated with unasyn while in ICU Currently on Augmentin 4. AFib with RVR: Currently on Cardizem Drip Plan to transition to oral cardizem Started on Eliquis Await ech Appreciate Cardiology help Supplement potassium 5. Alcohol withdrawal: CIWA protocol Librium TID Ativan PRN C/w thiamine, folic acid 6. Hypertension: Lisinopril has been discontinued Continue with Norvasc and HCTZ 7. DVT prophylaxis: Currently on Eliquis 8. Code status: Full code 9. Disposition: Pending improvement Time Spent With Patient Time with patient: 15 - 25 minutes Subjective Date/time seen: 01/08/23 09:30 Interval history: Multi out of ICU yesterday Went into AFib with RVR last night, was started on Cardizem drip. Was moved to IMU Currently heart rate less than 100, on Cardizem drip Review of Systems Review of Systems: All systems reviewed & are unremarkable except as noted in HPI and below Exam Const: General: comfortable and no acute distress HENMT: Mouth: Yes moist mucous membranes Eyes: Sclera: sclerae normal Neck: Neck: supple Resp: Effort & Inspection: normal respiratory effort Auscultation: diminished lung sounds Cardio: Rate: regular rate GI: GI Palp: Yes Soft to palpation Auscultation: normal bowel sounds Skin: General skin exam: normal color Neuro: Speech: normal speech Extrem: General: normal to inspection Psych: Mental Status: mental status grossly normal Objective Data Vital Signs Vital Signs: Vital Signs - 24 hr 01/07/23 10:00 01/07/23 10:00 01/07/23 11:51 Temperature 98 F Pulse Rate 98 98 109 H Pulse Rate [Monitor] Pulse Rate [Right Pedal (Dorsalis Pedis)] Respiratory Rate 26 H 23 H Blood Pressure 188/99 H Pulse Oximetry 97 96 Oxygen Delivery 01/07/23 12:00 01/07/23 12:52 01/07/23 12:34 T
[2023-01-08] MEDS: FOLIC ACID 1 MG TABLET PO (09:35)
[2023-01-08] MEDS: APIXABAN 5 MG TABLET PO ×2 (09:36→20:15)
[2023-01-08] MEDS: dilTIAZem HCL CD 180 MG CAP.24HR 360 MG PO (09:36)
[2023-01-08] MEDS: hydroCHLOROthiazide 25 MG TABLET PO (09:36)
[2023-01-08] MEDS: POTASSIUM CHLORIDE 20 MEQ ER TABLET 40 MEQ PO ×2 (09:36→13:29)
[2023-01-08] MEDS: THIAMINE HCL 100 MG TABLET PO (09:36)
[2023-01-08] MEDS: AMOXICILLIN/CLAVULANATE K 875-125 MG TAB 1 TABLET PO ×2 (09:36→20:15)
[2023-01-08] MEDS: chlordiazePOXIDE (*CRX) 25 MG CAPSULE PO ×3 (09:36→17:56)
[2023-01-08] MEDS: METOPROLOL TARTRATE 25 MG TABLET PO (13:30)
--- NOTE | 2023-01-08 15:14 | PCNFU ---
Nutrition Follow-Up Complete: Inadequate energy intake related to NPO status as evidenced by diet orders and need for tube feeding initiation to meet nutrition needs. Meet estimated needs while not exceeding them on mechanical ventilation - Goal met, proceed to new goal New goal: Adequate PO intake to meet estimated needs - Progressing Goal: Pt current nutrition is Regular diet, soft & bite size level 6. No intakes recorded, pt able to tell me he ate meat loaf. Nutrition recommendation: Oral nutrition supplement: Ensure Compact BID for additional 220 kcal and 9 g protein each Last recorded weight is 81 kg. Bowel Motility: +1 BM 01/07/23 Labs Reviewed: Hgb 13.9, Hct 40.9, Alb 3.4, K+ 3.2 Meds Noted: Deven Pardo Skin: WNL Additional Notes: Pt out of ICU. Up walking with therapy. Able to tell me he ate lunch. Agreeable to try Ensure BID Monitor tube feeding, rate, tolerance, wt, labs. Following every 5 days
--- NOTE | 2023-01-08 16:25 | ECG_ITS ---
Measurements Intervals [place] Rate: 67 P: 12 NV: 162 QRS: 17 QRSD: 89 T: 29 QT: 399 QTc: 423 Interpretive Statements SINUS RHYTHM MIINIMAL Q WAVES- INFERIOR LEADS BORDERLINE ECG COMPARED TO ECG 01/07/2023 20:18:13 SINUS RHYTHM NOW PRESENT Electronically Signed On 01-08-2023 17:07:58 CDT by Wojciech Garcia D.O.
[2023-01-09] VITALS (14 sets, daily range): BP systolic 123–157; BP diastolic 67–82; PULSE 67–94; RESP 16–20; TEMP 36.1–37; O2SAT 94–97
[2023-01-09 04:48] LABS: Basophils Percent Auto 0.3 % (0.2-1.2); Eosinophils Absolute Auto 0.1 K/mm3 (0-0.3); Eosinophils Percent Auto 0.9 % (0-4.4); Hematocrit 40.7 % (42.0-52.0); Immature Granulocyte Absolute 0.05 K/mm3 (0.00-0.031); Immature Granulocyte Percent A 0.5 % (0-0.5); Lymphocytes Percent Auto 18.8 % (18.3-44.2); Mean Corpuscular HGB Conc 34.4 g/dl (32-36); Mean Corpuscular Hemoglobin 31.8 pg (26-34); Mean Corpuscular Volume 92.5 fl (80-100); Mean Platelet Volume 9.8 fl (7.4-10.4); Monocytes Percent Auto 10.2 % (2.6-8.5); Neutrophils Absolute Auto 6.6 K/mm3 (1.3-6.7); Neutrophils Percent Auto 69.3 % (45.5-73.1); Platelet Count Result 185 k/mm3 (150-375); Red Cell Distribution Width 13.1 % (11.5-14.5); White Blood Count 9.6 K/mm3 (4.5-10.0)
[2023-01-09 05:00] LABS: Alanine Aminotransferase 37 U/L (6-50); Albumin Level 3.6 g/dL (3.5-5.1); Alkaline Phosphatase 46 U/L (38-126); Anion Gap 7 mmol/L (8-16); Aspartate Amino Transferase 47 U/L (17-59); Bilirubin,Total 1.3 mg/dL (0.2-1.3); Blood Urea Nitrogen 21 mg/dL (9-20); Calcium 8.9 mg/dL (8.4-10.2); Carbon Dioxide 26 mmol/L (22-30); Chloride 99 mmol/L (98-107); Estimated CRCL calculation 61 ml/min; Estimated Glomerular Filt Rate > 60; Glucose 93 mg/dL (65-110); Magnesium 1.9 mg/dL (1.6-2.3); Potassium 3.8 mmol/L (3.4-5.0); Sodium 132 mmol/L (137-145)
--- NOTE | 2023-01-09 07:56 | PM.PNCARD ---
Progress Note: A&P Assessment and Plan (1) Atrial fibrillation with RVR: Code(s): I48.91 - Unspecified atrial fibrillation Status: Acute Assessment and Plan: Back to sinus rhythm. Asymptomatic in atrial fib. New onset. Was rate controlled on Diltiazem when cardioverted. [id number] 3. On Diltiazem CD 360 mg daily. On Eliquis 5 mg BID. 01/08/23 Echo: EF 60-65%, diastolic dysfunction with E/e' 10, mod LAE, mild AI/TR. Check TSH. (2) Aspiration pneumonia: Code(s): J69.0 - Pneumonitis due to inhalation of food and vomit Status: Acute Assessment and Plan: On antibiotics as per hospitalist. (3) Alcohol use: Code(s): Z78.9 - Other specified health status Status: Acute Assessment and Plan: Counseled regarding alcohol cessation. (4) Tobacco use: Code(s): Z72.0 - Tobacco use Status: Acute Assessment and Plan: Counseled regarding smoking cessation. (5) Essential hypertension: Code(s): I10 - Essential (primary) hypertension Status: Acute Assessment and Plan: High. Avoid David inh as it may have caused angioedema. Start Bystolic 5 mg daily. Monitor BP. Subjective Date/time seen: 01/09/23 07:56 Interval history: Denies chest pain or sob. He cardioverted yesterday afternoon. Exam Const: General: cooperative, healthy appearing and comfortable Orientation/consciousness: oriented to person, oriented to place and oriented to time Resp: Auscultation: no crackles, no rales, no rhonchi, no wheezes and diminished lung sounds Cardio: Rate: regular rate Rhythm: regular rhythm Heart sounds: no murmurs Peripheral pulses: dorsalis pedis present Neuro: General: oriented to person, oriented to place and oriented to time Extrem: Right lower extremity: no edema Left lower extremity: no edema Objective Data Vital Signs Vital Signs: Vital Signs - 24 hr 01/08/23 09:44 01/08/23 08:00 01/08/23 10:00 Temperature Pulse Rate 99 102 H Pulse Rate [Monitor] Respiratory Rate Blood Pressure Pulse Oximetry Oxygen Delivery Room Air 01/08/23 10:24 01/08/23 11:32 01/08/23 12:00 Temperature 97.2 F L Pulse Rate 124 H 124 H Pulse Rate [Monitor] Respiratory Rate 18 Blood Pressure 138/81 Pulse Oximetry 98 Oxygen Delivery Room Air 01/08/23 13:30 01/08/23 14:28 01/08/23 15:35 Temperature 97.0 F L Pulse Rate 124 H 68 Pulse Rate [Monitor] Respiratory Rate 18 Blood Pressure 139/83 Pulse Oximetry 97 Oxygen Delivery Room Air 01/08/23 12:00 01/08/23 16:00 01/08/23 14:00 Temperature Pulse Rate 71 Pulse Rate [Monitor] Respiratory Rate Blood Pressure Pulse Oximetry Oxygen Delivery Room Air Room Air 01/08/23 16:00 01/08/23 18:00 01/08/23 19:55 Temperature 97.9 F Pulse Rate 70 64 78 Pulse Rate [Monitor] Respiratory Rate 16 Blood Pressure 156/84 H Pulse Oximetry 95 Oxygen Delivery 01/08/23 20:00 01/08/23 20:00 01/08/23 22:00 Temperature Pulse Rate 74 79 Pulse Rate [Monitor] Respiratory Rate Blood Pressure Pulse Oximetry Oxygen Delivery Room Air 01/08/23 23:41 01/08/23 23:56 01/08/23 23:58 Temperature 97.2 F L Pulse Rate 77 71 Pulse Rate [Monitor] Respiratory Rate 16 Blood Pressure 157/80 H Pulse Oximetry 94 Oxygen Delivery Room Air 01/09/23 01:50 01/09/23 04:00 01/09/23 04:00 Temperature Pulse Rate 70 84 Pulse Rate [Monitor] 94 Respiratory Rate Blood Pressure 157/80 H Pulse Oximetry Oxygen Delivery 01/09/23 04:00 01/09/23 04:41 01/09/23 06:00 Temperature 98.4 F Pulse Rate 81 77 Pulse Rate [Monitor] Respiratory Rate 16 Blood Pressure 151/74 H Pulse Oximetry 94 Oxygen Delivery Room Air 01/09/23 07:51 Temperature 97.9 F Pulse Rate 73 Pulse Rate [Monitor] Respiratory Rate 16 Blood Pressure 157/81 H Pulse Oximetry 96 Oxygen Delivery Intake/O
[2023-01-09] MEDS: AMOXICILLIN/CLAVULANATE K 875-125 MG TAB 1 TABLET PO ×2 (09:21→20:42)
[2023-01-09] MEDS: dilTIAZem HCL CD 180 MG CAP.24HR 360 MG PO (09:21)
[2023-01-09] MEDS: NEBIVOLOL HCL 5 MG TABLET PO (09:21)
[2023-01-09] MEDS: FOLIC ACID 1 MG TABLET PO (09:22)
[2023-01-09] MEDS: chlordiazePOXIDE (*CRX) 25 MG CAPSULE PO (09:22)
[2023-01-09] MEDS: APIXABAN 5 MG TABLET PO ×2 (09:22→20:42)
[2023-01-09] MEDS: THIAMINE HCL 100 MG TABLET PO (09:22)
[2023-01-09] MEDS: hydroCHLOROthiazide 25 MG TABLET PO (09:22)
--- NOTE | 2023-01-09 12:55 | P.PNIM_ITS ---
Progress Note: A&P Assessment and Plan (1) Atrial fibrillation with RVR: Code(s): I48.91 - Unspecified atrial fibrillation Status: Acute (2) Aspiration pneumonia: Code(s): J69.0 - Pneumonitis due to inhalation of food and vomit Status: Acute (3) Angioedema: Code(s): T78.3XXA - Angioneurotic edema, initial encounter Status: Acute (4) Essential hypertension: Code(s): I10 - Essential (primary) hypertension Status: Acute Plan # angioedema # acute respiratory failure secondary to angioedema, resolved -likely secondary to lisinopril, will switch to bystolic -extubated 01/06 -completed treatment with Solu-Medrol, famotidine, epinephrine, Benadryl -PT/OT consult: Recommendation for skilled nurse facility # atrial fibrillation RVR -rate controlled with diltiazem 360 mg daily -anticoagulation with Eliquis, CHADS2 Vasc score 3 -cardiology consult: Recommendation for diltiazem and Eliquis # aspiration pneumonia -antibiotics: Augmentin 01/07- -incentive spirometer # chronic conditions -essential hypertension: With the allergy to lisinopril, started on Bystolic. Continue hydrochlorothiazide, Cardizem -alcohol use disorder: Continue multivitamin, thiamine. Tapering librium -nicotine dependence Diet: Regular diet DVT prophylaxis: On Eliquis Code status: Full code Disposition: [facility] facility Subjective Date/time seen: 01/09/23 12:55 Interval history: Patient seen and examined. Patient has no new complaints. Patient denies feve r, chills, nausea vomiting, diarrhea. Patient work physical therapy today, awaiting halfway facility placement. I reviewed cardiology note, cardiology like to continue diltiazem and Eliquis, started on Bystolic. Review of Systems Review of Systems: 10 point ROS complete, negative other th an what is specified in HPI. Exam Narrative: - GENERAL: Pleasant male no acute distr ess. Well-nourished. - EYES: EOMI. Anicteric. - HENT: Moist mucous membranes. - LUNGS: Clear to auscultation bilateral ly, no wheezing, rhonchi, or rales. - CARDIOVASCULAR: Regular rate and rhyth m. No murmur. No JVD. - ABDOMEN: Soft, non-tender and non-dist ended. No palpable masses. - EXTREMITIES: No edema. Peripheral puls es 2+. Non-tender. - NEUROLOGIC: No focal neurological defi cits. CN II-XII grossly intact. - PSYCHIATRIC: Awake, Alert and oriented x 3. Appropriate mood and affect. - SKIN: No rashes or lesions. Warm. Objective Data Vital Signs Vital Signs: Vital Signs - 24 hr 01/08/23 13:30 01/08/23 14:28 01/08/23 15:35 Temperature 36.1 C L Pulse Rate 124 H 68 Pulse Rate [Monitor] Respiratory Rate 18 Blood Pressure 139/83 Pulse Oximetry 97 Oxygen Delivery Room Air 01/08/23 16:00 01/08/23 14:00 01/08/23 16:00 Temperature Pulse Rate 71 70 Pulse Rate [Monitor] Respiratory Rate
--- NOTE | 2023-01-09 12:55 | PM.IMPN ---
Progress Note: A&P Assessment and Plan (1) Atrial fibrillation with RVR: Code(s): I48.91 - Unspecified atrial fibrillation Status: Acute (2) Aspiration pneumonia: Code(s): J69.0 - Pneumonitis due to inhalation of food and vomit Status: Acute (3) Angioedema: Code(s): T78.3XXA - Angioneurotic edema, initial encounter Status: Acute (4) Essential hypertension: Code(s): I10 - Essential (primary) hypertension Status: Acute Plan # angioedema # acute respiratory failure secondary to angioedema, resolved -likely secondary to lisinopril, will switch to bystolic -extubated 01/06 -completed treatment with Solu-Medrol, famotidine, epinephrine, Benadryl -PT/OT consult: Recommendation for skilled nurse facility # atrial fibrillation RVR -rate controlled with diltiazem 360 mg daily -anticoagulation with Eliquis, CHADS2 Vasc score 3 -cardiology consult: Recommendation for diltiazem and Eliquis # aspiration pneumonia -antibiotics: Augmentin 01/07- -incentive spirometer # chronic conditions -essential hypertension: With the allergy to lisinopril, started on Bystolic. Continue hydrochlorothiazide, Cardizem -alcohol use disorder: Continue multivitamin, thiamine. Tapering librium -nicotine dependence Diet: Regular diet DVT prophylaxis: On Eliquis Code status: Full code Disposition: halfway facility Subjective Date/time seen: 01/09/23 12:55 Interval history: Patient seen and examined. Patient has no new complaints. Patient denies fever, chills, nausea vomiting, diarrhea. Patient work physical therapy today, awaiting half-way facility placement. I reviewed cardiology note, cardiology like to continue diltiazem and Eliquis, started on Bystolic. Review of Systems Review of Systems: 10 point ROS complete, negative other than what is specified in HPI. Exam Narrative: - GENERAL: Pleasant male no acute distress. Well-nourished. - EYES: EOMI. Anicteric. - HENT: Moist mucous membranes. - LUNGS: Clear to auscultation bilaterally, no wheezing, rhonchi, or rales. - CARDIOVASCULAR: Regular rate and rhythm. No murmur. No JVD. - ABDOMEN: Soft, non-tender and non-distended. No palpable masses. - EXTREMITIES: No edema. Peripheral pulses 2+. Non-tender. - NEUROLOGIC: No focal neurological deficits. CN II-XII grossly intact. - PSYCHIATRIC: Awake, Alert and oriented x 3. Appropriate mood and affect. - SKIN: No rashes or lesions. Warm. Objective Data Vital Signs Vital Signs: Vital Signs - 24 hr 01/08/23 13:30 01/08/23 14:28 01/08/23 15:35 Temperature 36.1 C L Pulse Rate 124 H 68 Pulse Rate [Monitor] Respiratory Rate 18 Blood Pressure 139/83 Pulse Oximetry 97 Oxygen Delivery Room Air 01/08/23 16:00 01/08/23 14:00 01/08/23 16:00 Temperature Pulse Rate 71 70 Pulse Rate [Monitor] Respiratory Rate Blood Pressure Pulse Oximetry Oxygen Delivery Room Air 01/08/23 18:00 01/08/23 19:55 01/08/23 20:00 Temperature 36.6 C Pulse Rate 64 78 74 Pulse Rate [Monitor] Respiratory Rate 16 Blood Pressure 156/84 H Pulse Oximetry 95 Oxygen Delivery 01/08/23 20:00 01/08/23 22:00 01/08/23 23:41 Temperature 36.2 C L Pulse Rate 79 77 Pulse Rate [Monitor] Respiratory Rate 16 Blood Pressure 157/80 H Pulse Oximetry 94 Oxygen Delivery Room Air 01/08/23 23:56 01/08/23 23:58 01/09/23 01:50 Temperature Pulse Rate 71 70 Pulse Rate [Monitor] Respiratory Rate Blood Pressure Pulse Oximetry Oxygen Delivery Room Air 01/09/23 04:00 01/09/23 04:00 01/09/23 04:00 Temperature Pulse Rate 84 Pulse Rate [Monitor] 94 Respiratory Rate Blood Pressure 157/80 H Pulse Oximetry Oxygen Delivery Room Air 01/09/23 04:41 01/09/23 06:00 01/09/23 07:51 Temperature 36.9 C 36.6 C Pulse Rate 81 77 73 Pulse Rate [Monitor] Respiratory Rate 16 16 Blood Pressure 1
--- NOTE | 2023-01-09 17:22 | PC.NURSE ---
This patient, Rob Olivier, was transferred to [facility] on 01/09/23 at 1722. Personal belongings sent with patient. Report given to Hilda. Appropriate documentation sent with patient.
[2023-01-09] MEDS: chlordiazePOXIDE (*CRX) 10 MG CAPSULE PO (17:43)
--- NOTE | 2023-01-09 18:21 | ADMGEN ---
This patient, Rob Olivier, was admitted to Medical Room 340-01. Patient/family oriented to hospital policies and general routines including ID bracelet, bed and alarms, visiting hours, pain management, procedures, bathroom and other care routines, personal items, smoking policy, room service/diet, and visiting hours. Information on how to activate the Rapid Response Team has been discussed. Patient/Family are encouraged to report perceived risks to care and to ask questions if they do not understand what they are told or what they should do.
[2023-01-10] VITALS (10 sets, daily range): BP systolic 117–127; BP diastolic 68–81; PULSE 62–97; RESP 14–18; TEMP 35.7–36.9; O2SAT 96–99
[2023-01-10 05:54] LABS: Basophils Absolute Auto 0.1 K/mm3 (0.0-0.1); Basophils Percent Auto 0.6 % (0.2-1.2); Eosinophils Absolute Auto 0.2 K/mm3 (0-0.3); Eosinophils Percent Auto 1.7 % (0-4.4); Hematocrit 42.2 % (42.0-52.0); Hemoglobin 14.6 g/dL (14.0-18.0); Immature Granulocyte Absolute 0.08 K/mm3 (0.00-0.031); Immature Granulocyte Percent A 0.7 % (0-0.5); Lymphocytes Absolute Auto 1.85 K/mm3 (0.9-3.2); Lymphocytes Percent Auto 17.2 % (18.3-44.2); Mean Corpuscular HGB Conc 34.6 g/dl (32-36); Mean Corpuscular Hemoglobin 32.2 pg (26-34); Mean Corpuscular Volume 93.2 fl (80-100); Mean Platelet Volume 9.6 fl (7.4-10.4); Monocytes Absolute Auto 1.5 K/mm3 (0.1-0.6); Neutrophils Absolute Auto 7.1 K/mm3 (1.3-6.7); Neutrophils Percent Auto 65.8 % (45.5-73.1); Platelet Count Result 208 k/mm3 (150-375); Red Blood Count 4.53 M/mm3 (4.6-6.20); Red Cell Distribution Width 12.9 % (11.5-14.5); White Blood Count 10.8 K/mm3 (4.5-10.0)
[2023-01-10 06:06] LABS: Alanine Aminotransferase 62 U/L (6-50); Albumin Level 3.8 g/dL (3.5-5.1); Alkaline Phosphatase 53 U/L (38-126); Anion Gap 6 mmol/L (8-16); Aspartate Amino Transferase 58 U/L (17-59); Bilirubin,Total 1.1 mg/dL (0.2-1.3); Blood Urea Nitrogen 22 mg/dL (9-20); Carbon Dioxide 27 mmol/L (22-30); Chloride 98 mmol/L (98-107); Estimated CRCL calculation 55 ml/min; Estimated Glomerular Filt Rate > 60; Glucose 110 mg/dL (65-110); Magnesium 1.9 mg/dL (1.6-2.3); Potassium 3.4 mmol/L (3.4-5.0); Sodium 131 mmol/L (137-145)
--- NOTE | 2023-01-10 08:13 | PM.PNCARD ---
Progress Note: A&P Assessment and Plan (1) Atrial fibrillation with RVR: Code(s): I48.91 - Unspecified atrial fibrillation Status: Acute Assessment and Plan: Back to sinus rhythm. Asymptomatic in atrial fib. New onset. Was rate controlled on Diltiazem when cardioverted. [id number] 3. On Diltiazem CD 360 mg daily. On Eliquis 5 mg BID. 01/08/23 Echo: EF 60-65%, diastolic dysfunction with E/e' 10, mod LAE, mild AI/TR. Normal TSH. May d/c from hospital from cardiology standpoint and f/u with me in 1-2 weeks. (2) Aspiration pneumonia: Code(s): J69.0 - Pneumonitis due to inhalation of food and vomit Status: Acute Assessment and Plan: On antibiotics as per hospitalist. (3) Alcohol use: Code(s): Z78.9 - Other specified health status Status: Acute Assessment and Plan: Counseled regarding alcohol cessation. (4) Tobacco use: Code(s): Z72.0 - Tobacco use Status: Acute Assessment and Plan: Counseled regarding smoking cessation. (5) Essential hypertension: Code(s): I10 - Essential (primary) hypertension Status: Acute Assessment and Plan: Stable. Avoid David inh as it may have caused angioedema. On Bystolic 5 mg daily. Stop HCTZ due to it lowers sodium and potassium. Subjective Date/time seen: 01/10/23 08:13 Interval history: Denies chest pain or sob. Exam Const: General: cooperative, healthy appearing and comfortable Orientation/consciousness: oriented to person, oriented to place and oriented to time Resp: Auscultation: no crackles, no rales, no rhonchi, no wheezes and diminished lung sounds Cardio: Rate: regular rate Rhythm: regular rhythm Heart sounds: no murmurs Peripheral pulses: dorsalis pedis present Neuro: General: oriented to person, oriented to place and oriented to time Extrem: Right lower extremity: no edema Left lower extremity: no edema Objective Data Vital Signs Vital Signs: Vital Signs - 24 hr 01/09/23 09:21 01/09/23 09:59 01/09/23 11:47 Temperature 97.7 F Pulse Rate 82 81 79 Pulse Rate [Monitor] Respiratory Rate 20 Blood Pressure 133/82 Pulse Oximetry 96 01/09/23 12:00 01/09/23 16:00 01/09/23 16:00 Temperature 98.3 F Pulse Rate 83 69 67 Pulse Rate [Monitor] Respiratory Rate 20 Blood Pressure 128/67 Pulse Oximetry 94 01/09/23 17:00 01/09/23 19:49 01/09/23 20:00 Temperature 98.6 F 97 F L Pulse Rate 85 70 Pulse Rate [Monitor] 72 Respiratory Rate 18 16 Blood Pressure 123/72 140/80 Pulse Oximetry 97 94 01/09/23 20:00 01/10/23 00:00 01/10/23 00:00 Temperature Pulse Rate 72 66 Pulse Rate [Monitor] 66 Respiratory Rate Blood Pressure Pulse Oximetry 01/10/23 04:00 01/10/23 04:00 01/10/23 04:20 Temperature 97.9 F Pulse Rate 97 64 Pulse Rate [Monitor] 97 Respiratory Rate 18 Blood Pressure 127/71 Pulse Oximetry 97 Intake/Output Intake/Output: Intake & Output 01/07/23 01/08/23 01/09/23 01/10/23 23:59 23:59 23:59 23:59 Intake Total 250 480 840 400 Output Total 975 1300 600 Balance -725 480 -460 -200 Meds/Results Medications: Active Medications Generic Name Dose Route Start Last Admin Trade Name Freq PRN Reason Stop Dose Admin Acetaminophen 650 mg 01/09/23 19:28 Acetaminophen 325 Mg Tablet PO Q6H PRN Mild Pain (1-3) or Fever Amoxicillin/Clavulanate Potassium 1 tablet 01/07/23 21:00 01/09/23 20:42 Amoxicillin/Clavulanate K 875-125 Mg Tab PO 1 tablet Q12HR TONYA Administration Apixaban 5 mg 01/08/23 09:00 01/09/23 20:42 Apixaban 5 Mg Tablet PO 5 mg Q12HR TONYA Administration Chlordiazepoxide HCl 10 mg 01/09/23 17:00 01/09/23 17:43 Chlordiazepoxide (*Crx) 10 Mg Capsule PO 10 mg TID TONYA Administration Dextrose 12.5 gm 01/04/23 13:29 Dextrose 50% 25 Gm/50 Ml Syringe IV PUSH PRN PRN Hypoglycemia Protocol Diltiazem HCl 360 mg
[2023-01-10] MEDS: dilTIAZem HCL CD 180 MG CAP.24HR 360 MG PO (08:34)
[2023-01-10] MEDS: chlordiazePOXIDE (*CRX) 10 MG CAPSULE PO (08:34)
[2023-01-10] MEDS: AMOXICILLIN/CLAVULANATE K 875-125 MG TAB 1 TABLET PO ×2 (08:34→20:00)
[2023-01-10] MEDS: FOLIC ACID 1 MG TABLET PO (08:35)
[2023-01-10] MEDS: NEBIVOLOL HCL 5 MG TABLET PO (08:35)
[2023-01-10] MEDS: APIXABAN 5 MG TABLET PO ×2 (08:35→20:00)
[2023-01-10] MEDS: THIAMINE HCL 100 MG TABLET PO (08:35)
--- NOTE | 2023-01-10 11:05 | P.PNIM_ITS ---
Progress Note: A&P Assessment and Plan (1) Atrial fibrillation with RVR: Code(s): I48.91 - Unspecified atrial fibrillation Status: Acute (2) Aspiration pneumonia: Code(s): J69.0 - Pneumonitis due to inhalation of food and vomit Status: Acute (3) Acute respiratory failure: Code(s): J96.00 - Acute respiratory failure, unspecified whether with hypoxia or hypercapnia Status: Acute (4) Alcohol use: Code(s): Z78.9 - Other specified health status Status: Acute (5) Angioedema: Code(s): T78.3XXA - Angioneurotic edema, initial encounter Status: Acute (6) Essential hypertension: Code(s): I10 - Essential (primary) hypertension Status: Acute Plan # angioedema # acute respiratory failure secondary to angioedema, resolved -likely secondary to lisinopril, we have switched to bystolic -extubated 01/06 -completed treatment with Solu-Medrol, famotidine, epinephrine, Benadryl -PT/OT consult: Recommendation for [facility] facility # atrial fibrillation RVR -rate controlled with diltiazem 360 mg daily -anticoagulation with Eliquis, CHADS2 Vasc score 3 -cardiology consult: Recommendation for diltiazem and Eliquis # aspiration pneumonia -antibiotics:? Augmentin 01/07- -incentive spirometer # electrolyte imbalances -hyponatremia: May be due to the hydrochlorothiazide, will discontinue. Sodium down from 136 to 131 -hypokalemia: Monitor closely # chronic conditions -essential hypertension:? With the allergy to lisinopril, started on Bystolic. stopped lisinopril d/t allergy. Stopped HCTZ d/t hyponatremia -alcohol use disorder:? Continue multivitamin, thiamine.? Tapered off librium -nicotine dependence Diet:? Regular diet DVT prophylaxis:? On Eliquis Code status:? Full code Disposition:? senior care facility Subjective Date/time seen: 01/10/23 11:05 Interval history: Patient seen and examined. He is doing well no new complaints. We have stopped the hydrochlorothiazide with his hyponatremia. we are waiting placement for [facility] vs SNF. Patient denies fever, chills, nausea vomiting, diarrhea. Review of Systems Review of Systems: 10 point ROS complete, negative other th an what is specified in HPI. Exam Narrative: - GENERAL:? Pleasant male no acute distr ess. Well-nourished. - EYES: EOMI. Anicteric. - HENT: Moist mucous membranes. - LUNGS: Clear to auscultation bilateral ly, no wheezing, rhonchi, or rales. - CARDIOVASCULAR: Regular rate and rhyth m. No murmur - ABDOMEN: Soft, non-tender and non-dist ended. No palpable masses. - EXTREMITIES: No edema. Peripheral puls es 2+. Non-tender. - NEUROLOGIC: No focal neurological defi cits. CN II-XII grossly intact. - PSYCHIATRIC: Awake, Alert and oriented x 3. Appropriate mood and affect. - SKIN: No rashes or lesions. Warm. Objective Data Vital Signs Vital Signs: Vital Signs - 24 hr 01/09/23 11:47 01/09/23 12:00 01/09/23 16:00 Temperature 36.5 C Pulse Rate 7
--- NOTE | 2023-01-10 11:05 | PM.IMPN ---
Progress Note: A&P Assessment and Plan (1) Atrial fibrillation with RVR: Code(s): I48.91 - Unspecified atrial fibrillation Status: Acute (2) Aspiration pneumonia: Code(s): J69.0 - Pneumonitis due to inhalation of food and vomit Status: Acute (3) Acute respiratory failure: Code(s): J96.00 - Acute respiratory failure, unspecified whether with hypoxia or hypercapnia Status: Acute (4) Alcohol use: Code(s): Z78.9 - Other specified health status Status: Acute (5) Angioedema: Code(s): T78.3XXA - Angioneurotic edema, initial encounter Status: Acute (6) Essential hypertension: Code(s): I10 - Essential (primary) hypertension Status: Acute Plan # angioedema # acute respiratory failure secondary to angioedema, resolved -likely secondary to lisinopril, we have switched to bystolic -extubated 01/06 -completed treatment with Solu-Medrol, famotidine, epinephrine, Benadryl -PT/OT consult: Recommendation for nursing home facility # atrial fibrillation RVR -rate controlled with diltiazem 360 mg daily -anticoagulation with Eliquis, CHADS2 Vasc score 3 -cardiology consult: Recommendation for diltiazem and Eliquis # aspiration pneumonia -antibiotics:? Augmentin 01/07- -incentive spirometer # electrolyte imbalances -hyponatremia: May be due to the hydrochlorothiazide, will discontinue. Sodium down from 136 to 131 -hypokalemia: Monitor closely # chronic conditions -essential hypertension:? With the allergy to lisinopril, started on Bystolic. stopped lisinopril d/t allergy. Stopped HCTZ d/t hyponatremia -alcohol use disorder:? Continue multivitamin, thiamine.? Tapered off librium -nicotine dependence Diet:? Regular diet DVT prophylaxis:? On Eliquis Code status:? Full code Disposition:? care home facility Subjective Date/time seen: 01/10/23 11:05 Interval history: Patient seen and examined. He is doing well no new complaints. We have stopped the hydrochlorothiazide with his hyponatremia. we are waiting placement for [facility] vs SNF. Patient denies fever, chills, nausea vomiting, diarrhea. Review of Systems Review of Systems: 10 point ROS complete, negative other than what is specified in HPI. Exam Narrative: - GENERAL:? Pleasant male no acute distress. Well-nourished. - EYES: EOMI. Anicteric. - HENT: Moist mucous membranes. - LUNGS: Clear to auscultation bilaterally, no wheezing, rhonchi, or rales. - CARDIOVASCULAR: Regular rate and rhythm. No murmur - ABDOMEN: Soft, non-tender and non-distended. No palpable masses. - EXTREMITIES: No edema. Peripheral pulses 2+. Non-tender. - NEUROLOGIC: No focal neurological deficits. CN II-XII grossly intact. - PSYCHIATRIC: Awake, Alert and oriented x 3. Appropriate mood and affect. - SKIN: No rashes or lesions. Warm. Objective Data Vital Signs Vital Signs: Vital Signs - 24 hr 01/09/23 11:47 01/09/23 12:00 01/09/23 16:00 Temperature 36.5 C Pulse Rate 79 83 69 Pulse Rate [Monitor] Respiratory Rate 20 Blood Pressure 133/82 Pulse Oximetry 96 Oxygen Delivery 01/09/23 16:00 01/09/23 17:00 01/09/23 19:49 Temperature 36.8 C 37.0 C 36.1 C L Pulse Rate 67 85 70 Pulse Rate [Monitor] Respiratory Rate 20 18 16 Blood Pressure 128/67 123/72 140/80 Pulse Oximetry 94 97 94 Oxygen Delivery 01/09/23 20:00 01/09/23 20:00 01/10/23 00:00 Temperature Pulse Rate 72 66 Pulse Rate [Monitor] 72 Respiratory Rate Blood Pressure Pulse Oximetry Oxygen Delivery 01/10/23 00:00 01/10/23 04:00 01/10/23 04:00 Temperature Pulse Rate 97 Pulse Rate [Monitor] 66 97 Respiratory Rate Blood Pressure Pulse Oximetry Oxygen Delivery 01/10/23 04:20 01/10/23 08:32 01/10/23 08:35 Temperature 36.6 C Pulse Rate 64 65 65 Pulse Rate [Monitor] Respiratory Rate 18 Blood Pressure 127/71 122/81 Pulse Oximetry 97 97 Oxygen Delivery
[2023-01-11] VITALS: BP 114/77; PULSE 57; PULSE 58; RESP 12; TEMP 35.7; O2SAT 97
[2023-01-11 04:00] VITALS: BP 117/71; PULSE 60; PULSE 69; RESP 16; TEMP 35.6; O2SAT 97
[2023-01-11 06:04] LABS: Basophils Absolute Auto 0.1 K/mm3 (0.0-0.1); Basophils Percent Auto 0.6 % (0.2-1.2); Eosinophils Absolute Auto 0.2 K/mm3 (0-0.3); Eosinophils Percent Auto 2.1 % (0-4.4); Hematocrit 43.6 % (42.0-52.0); Hemoglobin 14.8 g/dL (14.0-18.0); Immature Granulocyte Absolute 0.06 K/mm3 (0.00-0.031); Immature Granulocyte Percent A 0.6 % (0-0.5); Lymphocytes Absolute Auto 1.43 K/mm3 (0.9-3.2); Lymphocytes Percent Auto 13.9 % (18.3-44.2); Mean Corpuscular HGB Conc 33.9 g/dl (32-36); Mean Corpuscular Volume 94.2 fl (80-100); Mean Platelet Volume 9.9 fl (7.4-10.4); Monocytes Absolute Auto 1.4 K/mm3 (0.1-0.6); Monocytes Percent Auto 13.7 % (2.6-8.5); Neutrophils Absolute Auto 7.1 K/mm3 (1.3-6.7); Neutrophils Percent Auto 69.1 % (45.5-73.1); Platelet Count Result 235 k/mm3 (150-375); Red Blood Count 4.63 M/mm3 (4.6-6.20); White Blood Count 10.3 K/mm3 (4.5-10.0)
[2023-01-11 06:15] LABS: Anion Gap 10 mmol/L (8-16); Blood Urea Nitrogen 29 mg/dL (9-20); Calcium 9.1 mg/dL (8.4-10.2); Carbon Dioxide 27 mmol/L (22-30); Chloride 97 mmol/L (98-107); Estimated CRCL calculation 46 ml/min; Estimated Glomerular Filt Rate 59; Glucose 108 mg/dL (65-110); Magnesium 2.2 mg/dL (1.6-2.3); Potassium 3.6 mmol/L (3.4-5.0); Sodium 134 mmol/L (137-145)
--- NOTE | 2023-01-11 07:30 | PM.PNCARD ---
Progress Note: A&P Assessment and Plan (1) Atrial fibrillation with RVR: Code(s): I48.91 - Unspecified atrial fibrillation Status: Acute Assessment and Plan: Back to sinus rhythm. Asymptomatic in atrial fib. New onset. Was rate controlled on Diltiazem when cardioverted. [id number] 3. Decrease Diltiazem CD 240 mg daily. On Eliquis 5 mg BID. 01/08/23 Echo: EF 60-65%, diastolic dysfunction with E/e' 10, mod LAE, mild AI/TR. Normal TSH. May d/c from hospital from cardiology standpoint and f/u with me in 1-2 weeks. (2) Aspiration pneumonia: Code(s): J69.0 - Pneumonitis due to inhalation of food and vomit Status: Acute Assessment and Plan: On antibiotics as per hospitalist. (3) Alcohol use: Code(s): Z78.9 - Other specified health status Status: Acute Assessment and Plan: Counseled regarding alcohol cessation. (4) Tobacco use: Code(s): Z72.0 - Tobacco use Status: Acute Assessment and Plan: Counseled regarding smoking cessation. (5) Essential hypertension: Code(s): I10 - Essential (primary) hypertension Status: Acute Assessment and Plan: Stable. Avoid David inh as it may have caused angioedema. Stop Bystolic 5 mg daily. Stop HCTZ due to it lowers sodium and potassium. Subjective Date/time seen: 01/11/23 07:30 Interval history: Denies chest pain or sob. Exam Const: General: cooperative, healthy appearing and comfortable Orientation/consciousness: oriented to person, oriented to place and oriented to time Resp: Auscultation: no crackles, no rales, no rhonchi, no wheezes and diminished lung sounds Cardio: Rate: regular rate Rhythm: regular rhythm Heart sounds: no murmurs Peripheral pulses: dorsalis pedis present Neuro: General: oriented to person, oriented to place and oriented to time Extrem: Right lower extremity: no edema Left lower extremity: no edema Objective Data Vital Signs Vital Signs: Vital Signs - 24 hr 01/10/23 08:32 01/10/23 08:35 01/10/23 08:00 Temperature Pulse Rate 65 65 Pulse Rate [Monitor] 65 Respiratory Rate Blood Pressure 122/81 Pulse Oximetry 97 Oxygen Delivery 01/10/23 08:00 01/10/23 08:00 01/10/23 11:56 Temperature 98.5 F Pulse Rate 68 64 Pulse Rate [Monitor] Respiratory Rate 18 Blood Pressure 117/69 Pulse Oximetry 99 Oxygen Delivery Room Air 01/10/23 12:00 01/10/23 12:00 01/10/23 16:00 Temperature 98.5 F Pulse Rate 67 63 Pulse Rate [Monitor] 67 Respiratory Rate 18 Blood Pressure 126/68 Pulse Oximetry 98 Oxygen Delivery 01/10/23 16:00 01/10/23 20:00 01/10/23 20:00 Temperature 96.3 F L Pulse Rate 64 62 Pulse Rate [Monitor] Respiratory Rate 14 Blood Pressure 119/70 Pulse Oximetry 96 Oxygen Delivery Room Air 01/11/23 00:00 01/10/23 20:00 01/11/23 00:00 Temperature 96.2 F L Pulse Rate 58 L 66 57 L Pulse Rate [Monitor] Respiratory Rate 12 Blood Pressure 114/77 Pulse Oximetry 97 Oxygen Delivery 01/11/23 04:00 01/11/23 04:00 Temperature 96.1 F L Pulse Rate 69 60 Pulse Rate [Monitor] Respiratory Rate 16 Blood Pressure 117/71 Pulse Oximetry 97 Oxygen Delivery Intake/Output Intake/Output: Intake & Output 01/08/23 01/09/23 01/10/23 01/11/23 23:59 23:59 23:59 23:59 Intake Total 480 840 400 150 Output Total 1300 1100 600 Balance 480 -460 -700 -450 Meds/Results Medications: Active Medications Generic Name Dose Route Start Last Admin Trade Name Freq PRN Reason Stop Dose Admin Acetaminophen 650 mg 01/09/23 19:28 Acetaminophen 325 Mg Tablet PO Q6H PRN Mild Pain (1-3) or Fever Amoxicillin/Clavulanate Potassium 1 tablet 01/07/23 21:00 01/10/23 20:00 Amoxicillin/Clavulanate K 875-125 Mg Tab PO 1 tablet Q12HR TONYA Administration Apixaban 5 mg 01/08/23 09:00 01/10/23 20:00 Apixaban 5 Mg Tablet PO 5 mg Q12HR TONYA Administ
[2023-01-11 08:00] VITALS: BP 126/78; PULSE 60; PULSE 65; PULSE 67; RESP 18; TEMP 36.6; O2SAT 98
[2023-01-11] MEDS: FOLIC ACID 1 MG TABLET PO (08:06)
[2023-01-11] MEDS: THIAMINE HCL 100 MG TABLET PO (08:07)
[2023-01-11] MEDS: AMOXICILLIN/CLAVULANATE K 875-125 MG TAB 1 TABLET PO (08:07)
[2023-01-11] MEDS: APIXABAN 5 MG TABLET PO (08:07)
[2023-01-11] MEDS: dilTIAZem HCL CD 240 MG CAP.24HR PO (10:39)
[2023-01-11 12:00] VITALS: BP 126/78; PULSE 66; PULSE 67
--- NOTE | 2023-01-11 12:12 | PM.DS ---
DS: Admitting Diagnosis Discharge Date 01/11/23 Admitting Diagnosis Angioedema DS: Discharge Diagnosis Discharge Diagnosis Plan Plan # angioedema # acute respiratory failure secondary to angioedema, resolved -likely secondary to lisinopril, -extubated 01/06 -completed treatment with Solu-Medrol, famotidine, epinephrine, Benadryl -PT/OT consult: Recommendation for [facility] facility - Pt is ok to go home and do HHPT. He wants to see PT as an outpt. He can move independently with a walker. - PCP is Dr. Pendleton at [facility] # atrial fibrillation RVR -rate controlled with diltiazem 360 mg daily -anticoagulation with Eliquis, CHADS2 Vasc score 3 -cardiology consult: Recommendation for diltiazem and Eliquis - now on diltiazem 240 mg/day and eliquis 5 mg/day # aspiration pneumonia -antibiotics:? Augmentin 01/07- -incentive spirometer - Do Augmentin until 01/13 for Aspiration pneumonia # electrolyte imbalances -hyponatremia:? May be due to the hydrochlorothiazide, will discontinue.? Sodium down from 136 to 131 -hypokalemia: Monitor closely - hctz stopped # chronic conditions -essential hypertension:? With the allergy to lisinopril, started on Bystolic. stopped lisinopril d/t allergy.?Stopped HCTZ d/t hyponatremia -alcohol use disorder:? Continue multivitamin, thiamine.??Tapered off librium -nicotine dependence Diet:? Regular diet DVT prophylaxis:? On Eliquis Code status:? Full code Disposition:? Likely home DS: Summary Hospital Course Reason for hospitalization: Acute respiratory failure likely secondary to angioedema, significant swelling of the tongue all the way to the vallecula as examine by ENT using glide scope and fiberoptic scope, significant epiglottic edema, not a good view of the vocal cords, anesthesia was able to intubate the patient with difficulty and with limited views. Patient was intubated -sedated with propofol infusion and neuromuscular blockade with Nimbex infusion -CT scan of the neck 01/06 showed superficial soft tissue swelling of the neck left worse than right - 01/06 extubated after weaning trial. - 01/07 patient on nasal cannula Add incentive spirometry -patient developed left lower lobe infiltrate possible aspiration pneumonia negative blood and sputum cultures.? Continue empiric Unasyn until patient can take p.o. and then switched to p.o. antibiotics (2) Angioedema: Patient presented the ED with? angioedema with significant swelling of the tongue and neck patient was a difficult airway and so was taken to the OR by Anesthesia and ENT to obtain in airway. -patient had no other symptoms suggestive of allergic or anaphylactic reaction.? No family history or similar incidents in the past.? Patient did not eat anything that morning apart from coffee as per his .? All these things point towards angioedema secondary to David inhibitor as the likely etiology -01/04 anaesthesia were able to obtain an airway after prolonged attempt but his O2 sats remained above 95% at all times. -in the ER Patient was treated with IV Solu-Medrol, IV famotidine, IM epinephrine was given and IV Benadryl in the ER -patient was treated with IV Solu-Medrol q.6 hours, IV famotidine, IV Benadryl for 48 hours which I were continued .? Now off -swelling appears to be clinically improved but still present on the left side of the neck.? Cuff leak is present although patient has a small sided tube.? CT scan of soft tissue neck as above -01/06 extubated 01/07/23? Patient was extubated yesterday after a successful weaning trial.? That he has done well and he is on nasal cannula.? No stridor or respiratory difficulty.? This morning he states he feels better denies any specific complaints..? He was on Precedex infusion yesterday afternoon for possible alcohol withdrawal and has been on low-dose through the night.? This morning he told me that he drinks 3 glasses of wine every day and has had times when he had not drank for many days without any difficulty.?
== END 2023-01-11 13:54 | disposition home or self-care (01) | DRG 915 ==
LOC: ANHED 11:44 → ANHICU 11:45 → ANH2MED 01-07 15:48 → ANHIMU 01-09 07:29 → ANH3MED 01-10 07:16 → ANH2MED 01-12 08:48 → ANH3MED 01-12 08:48 → ANHICU 01-12 08:48 → ANHIMU 01-12 08:48
PROVIDERS: Internal Medicine; Internal Medicine Cardiovascular Disease; Otolaryngology; Student in an Organized Health Care Education/Training Program; Admitting Provider Student in an Organized Health Care Education/Training Program; Emergency Provider Emergency Medicine; Visit Provider Internal Medicine
PROC: 0BH17EZ Insertion of Endotracheal Airway into Trachea, Via Natural or Artificial Opening (ICD-10-PCS; principal; 2023-01-04 11:30)
DX: T78.3XXA Angioneurotic edema, initial encounter (principal); J69.0 Pneumonitis due to inhalation of food and vomit; J96.00 Acute respiratory failure, unspecified whether with hypoxia or hypercapnia; J95.850 Mechanical complication of respirator; E87.1 Hypo-osmolality and hyponatremia; T44.5X5A Adverse effect of predominantly beta-adrenoreceptor agonists, initial encounter; E87.6 Hypokalemia; F17.210 Nicotine dependence, cigarettes, uncomplicated; F10.90 Alcohol use, unspecified, uncomplicated; I10 Essential (primary) hypertension; I48.91 Unspecified atrial fibrillation; Z79.899 Other long term (current) drug therapy
CPT/HCPCS: 36415; 36600; 70491; 71045; 71260; 80048; 80053; 82375; 82805; 82948; 83050; 83605; 83735; 84100; 84443; 84478; 85025; 85610; 85730; 87040; 87070; 87077; 87186; 87205; 92610; 92611; 93005; 93306; 94002; 94003; 96372; 97116; 97161; 97165; 97530; 97535; 99285; A9270; J0171; J0295; J0360; J1200; J1650; J2060; J2250; J2543; J2704; J2930; J3010; J7030; J7050; J7120; Q9967

== ENCOUNTER 2023-05-19 10:37 | Outpatient (CLI) | payer MEDICARE, SELFPAY ==
[2023-05-19 11:06] LABS: Cholesterol 203 mg/dL (0-200); HDL Direct 50 mg/dL; Triglycerides 132 mg/dL (<150)
[2023-05-19 11:17] LABS: LDL Cholesterol Direct 122 mg/dL
== END 2023-05-19 10:38 | disposition home or self-care (01) ==
PROVIDERS: Visit Provider Internal Medicine Cardiovascular Disease
DX: I10 Essential (primary) hypertension (principal)
CPT/HCPCS: 36415; 80061

== ENCOUNTER 2023-12-14 09:50 | Outpatient (CLI) | payer MEDICARE, SELFPAY ==
[2023-12-14 10:26] LABS: Basophils Absolute Auto 0.1 K/mm3 (0.0-0.1); Basophils Percent Auto 0.9 % (0.2-1.2); Eosinophils Absolute Auto 0.2 K/mm3 (0-0.3); Eosinophils Percent Auto 1.9 % (0-4.4); Hematocrit 45.8 % (42.0-52.0); Hemoglobin 15.2 g/dL (14.0-18.0); Immature Granulocyte Absolute 0.03 K/mm3 (0.00-0.031); Immature Granulocyte Percent A 0.4 % (0-0.5); Lymphocytes Absolute Auto 1.91 K/mm3 (0.9-3.2); Lymphocytes Percent Auto 22.6 % (18.3-44.2); Mean Corpuscular HGB Conc 33.2 g/dl (32-36); Mean Corpuscular Volume 96.4 fl (80-100); Mean Platelet Volume 9.8 fl (7.4-10.4); Monocytes Absolute Auto 0.8 K/mm3 (0.1-0.6); Monocytes Percent Auto 9.3 % (2.6-8.5); Neutrophils Absolute Auto 5.5 K/mm3 (1.3-6.7); Neutrophils Percent Auto 64.9 % (45.5-73.1); Platelet Count Result 197 k/mm3 (150-375); Red Blood Count 4.75 M/mm3 (4.6-6.20); Red Cell Distribution Width 13.4 % (11.5-14.5); White Blood Count 8.5 K/mm3 (4.5-10.0)
[2023-12-14 10:40] LABS: Alanine Aminotransferase 15 U/L (6-50); Albumin Level 4.5 g/dL (3.5-5.1); Alkaline Phosphatase 47 U/L (38-126); Anion Gap 10 mmol/L (4-12); Aspartate Amino Transferase 24 U/L (17-59); Bilirubin,Total 0.8 mg/dL (0.2-1.3); Blood Urea Nitrogen 20 mg/dL (9-20); Calcium 9.3 mg/dL (8.4-10.2); Carbon Dioxide 24 mmol/L (22-30); Chloride 100 mmol/L (98-107); Estimated Glomerular Filt Rate 59; Glucose 95 mg/dL (65-110); Sodium 134 mmol/L (137-145)
[2023-12-14 11:10] LABS: Prostate Specific Antigen 1.2 ng/mL (< OR = 4.0)
== END 2023-12-14 09:51 | disposition home or self-care (01) ==
LOC: ANHLAB 09:55
PROVIDERS: PCP Family Medicine; Visit Provider Student in an Organized Health Care Education/Training Program
DX: D64.9 Anemia, unspecified (principal); I48.0 Paroxysmal atrial fibrillation; R53.83 Other fatigue; Z12.5 Encounter for screening for malignant neoplasm of prostate
CPT/HCPCS: 36415; 80053; 84153; 84439; 84443; 85025; G0103

== ENCOUNTER 2023-12-21 12:50 | Outpatient (CLI) | payer MEDICARE, SELFPAY ==
--- NOTE | ~2023-12-21 | CT_ITS ---
EXAMINATION:CT lung screening DATE: 12/21/2023 13:08 INDICATION: Personal history of nicotine dependence. Current smoker with 57 pack year history. TECHNIQUE: Computed tomography (CT) of the chest was performed without intravenous contrast. Automate d exposure control and iterative reconstruction technique were employed. The dose-length product (DLP ) was 106.15 mGy-cm. COMPARISON: Chest CT 01/06/2023 FINDINGS: There is mild emphysema. There is mild scarring at the lung apices. There is a 6 mm nodule in right lower lobe, stable from 01/06/23. There is mild atelectasis bilaterally. A calcified left jack g nodule and calcified left hilar lymph nodes are consistent with old granulomatous disease. No pleur al effusion. The heart size is normal. There are coronary artery calcifications. No pericardial effus ion. There is mild bilateral gynecomastia. There is a 2.5 cm mass in right adrenal gland measuring lo w attenuation, consistent with an adenoma. There is a 1.3 cm mass in left adrenal gland measuring low attenuation, consistent with an adenoma. Calcifications in the spleen are consistent with old granul omatous disease. There is severe thoracic spondylosis. IMPRESSION: 1. Lung-RADS category 2: Benign appearance or behavior. Continue annual screening with noncontrast lo w-dose chest CT in 12 months. Reviewed, dictated and finalized at location A. IMPRESSION: 1. Lung-RADS category 2: Benign appearance or behavior. Continue annual screeni ng with noncontrast low-dose chest CT in 12 months.
== END 2023-12-21 12:51 | disposition home or self-care (01) ==
LOC: MICIMG 12:51
PROVIDERS: PCP Family Medicine; Visit Provider Student in an Organized Health Care Education/Training Program
DX: Z12.2 Encounter for screening for malignant neoplasm of respiratory organs (principal); Z87.891 Personal history of nicotine dependence
CPT/HCPCS: 71271

== ENCOUNTER 2024-06-06 10:38 | Outpatient (CLI) | payer MEDICARE, SELFPAY ==
[2024-06-06 11:45] LABS: Basophils Absolute Auto 0.1 K/mm3 (0.0-0.1); Eosinophils Absolute Auto 0.1 K/mm3 (0-0.3); Hematocrit 42.3 % (42.0-52.0); Hemoglobin 14.3 g/dL (14.0-18.0); Immature Granulocyte Absolute 0.03 K/mm3 (0.00-0.031); Immature Granulocyte Percent A 0.4 % (0-0.5); Lymphocytes Percent Auto 26.7 % (18.3-44.2); Mean Corpuscular HGB Conc 33.8 g/dl (32-36); Mean Corpuscular Hemoglobin 32.2 pg (26-34); Mean Corpuscular Volume 95.3 fl (80-100); Mean Platelet Volume 9.9 fl (7.4-10.4); Monocytes Absolute Auto 0.7 K/mm3 (0.1-0.6); Monocytes Percent Auto 9.1 % (2.6-8.5); Neutrophils Absolute Auto 4.3 K/mm3 (1.3-6.7); Neutrophils Percent Auto 60.8 % (45.5-73.1); Platelet Count Result 176 k/mm3 (150-375); Red Blood Count 4.44 M/mm3 (4.6-6.20); Red Cell Distribution Width 12.8 % (11.5-14.5); White Blood Count 7.1 K/mm3 (4.5-10.0)
[2024-06-06 12:02] LABS: Alanine Aminotransferase 19 U/L (6-50); Albumin Level 4.3 g/dL (3.5-5.1); Alkaline Phosphatase 52 U/L (38-126); Anion Gap 9 mmol/L (4-12); Aspartate Amino Transferase 30 U/L (17-59); Bilirubin,Total 0.9 mg/dL (0.2-1.3); Blood Urea Nitrogen 18 mg/dL (9-20); Calcium 9.1 mg/dL (8.4-10.2); Carbon Dioxide 25 mmol/L (22-30); Chloride 102 mmol/L (98-107); Cholesterol 176 mg/dL (0-200); Estimated Glomerular Filt Rate > 60; Glucose 87 mg/dL (65-110); HDL Direct 51 mg/dL; Potassium 5.1 mmol/L (3.4-5.0); Sodium 136 mmol/L (137-145); Triglycerides 131 mg/dL (<150)
[2024-06-06 12:12] LABS: LDL Cholesterol Direct 99 mg/dL
--- OUTSIDE RECORDS SUMMARY | 2024-06-06 12:33 | XMS_ITS | Referral Summary ---
Author Organization [facility] Address [address] [place] [address] Care Team Providers Care Deckhand Fishing Vessel Name Role Phone Porter Pendleton MD Primary Care Provider Myah Obrien RN Unavailable Unavaila ble Allergies Active Allergy Reactions Criticality Noted Date Comments David Inhibitors Angioedema High 01/18/2023 On vent x 3d Medications loratadine (CLARITIN) 10 mg tablet Take 1 tablet (10 mg total) by mouth daily as needed for allergies Active thiamine (VITAMIN B1) 100 mg tablet Take 1 tablet (100 mg total) by mouth daily Active folic acid (FOLVITE) 1 mg tablet Take 1 tablet (1,000 mcg total) by mouth daily 90 tablet 1 3 Active diltiaZEM CD (CARDIZEM CD) 360 mg 24 hr capsule TAKE 1 CAPSULE(360 MG) BY MOUTH DAILY 90 capsule 2 4 Active Eliquis 5 mg tablet TAKE 1 TABLET(5 MG) BY MOUTH EVERY 12 HOURS 60 tablet [address] (PROTONIX) 40 mg EC tablet TAKE 1 TABLET BY MOUTH DAILY 90 tablet 1 4 Active spironolactone (ALDACTONE) 25 mg tablet TAKE 1 TABLET(25 MG) BY MOUTH DAILY 30 tablet 11 4 Active Active Problems Problem Noted Date Diagnosed Date Elevated cholesterol 08/26/2021 Assessment & Plan (08/26/2021 8:42 PM CDT): Cholesterol in good range without need for statin. Pulmonary nodules 07/08/2020 Assessment & Plan (08/26/2021 8:41 PM CDT): CT chest due in July 2022. Assessment & Plan (01/09/2021 1:47 PM CDT): Repeat chest CT scheduled in 4 days. Iron deficiency anemia 06/06/2020 Overview (06/06/2020): Added automatically from request for surgery [id number] History of colon polyps 06/03/2020 Essential hypertension, benign 06/03/2020 Assessment & Plan (01/18/2023 1:09 PM CDT): Continue diltiazem XR 240mg daily Check BP 2x daily AM/PM and track Cardiology referral done within system Assessment & Plan (08/26/2021 8:41 PM CDT): At goal on current therapy. Assessment & Plan (01/09/2021 1:47 PM CDT): At goal on current therapy. Gastroesophageal reflux disease 06/03/2020 Anemia 06/03/2020 Personal history of nicotine dependence 06/03/19 Assessment & Plan (08/26/2021 8:42 PM CDT): Ok to restart Wellbutrin once daily with goal of twice daily for smoking cessation. Routine general medical exam ination at a health care facility 06/03/2020 Assessment & Plan (09/04/2022 11:42 AM CDT): EKG today, normal Labs today Continue 150 min/weekly of moderate intensity activity Limit EtOH 2/daily Working with [place] smoking cessation program Assessment & Plan (08/26/2021 8:43 PM CDT): Quit smoking. Colonoscopy UTD. PSA today. Vaccinations UTD. Assessment & Plan (01/09/2021 1:48 PM CDT): Spent 5 minutes on smoking cessation. He is motivated to quit. Will start bupropion. No contraindications to therapy. Planned quit date February 10. Benign tubular adenoma of large intestine 2011 Resolved Problems Problem Noted Date Diagnosed Date Resolved Date Ankle fracture 06/08/2011 01/18/2023 Immunizations Immunization Administration Dates Next Due H1N1 All Forms 01/15/2016 Influenza, Quad, Adjuvantate d, Intramuscular 12/25/2019 Influenza, Quadrivalent, Hig h Dose, Preservative Free, Intrr 12/11/2023,01/08/2021 Influenza, Quadrivalent, Spl it, Preservative Free, Intramuscular 01/06/2019 Influenza, Trivalent, Cell Culture-based MDCK, Preservative Free, Antibiotic Free, Intramuscular 12/17/2016 Influenza, Trivalent, High D ose, Split, Preservative Free, Intramuscular 01/14/2018,01/15/2016 Influenza, Trivalent, Preser vative Free, Intramuscular 12/25/2019 Influenza, Unspecified 12/28/2022,12/11/2020 Pfizer SARS-CoV-2 Monovalent Vaccination (12+ Yrs) PURPLE 12/11/2023,07/19/2021,05/30/2020,05/09 Pfizer Sars-Cov-2 Bivalent V accination (12+ YRS) 12/28/2022 Pneumococcal Conjugate PCV 13 09/10/2016 Pneumococcal Polysaccharide PPV23 09/10/2016 RSV Vaccine, Pref, Recombina nt, Subunit, Adjuvanted, PF, IM (Arexvy) 11/27/2022 ZOSTER LIVE 10/05/2016 Social History Tobacco Use Types Packs/Day Years Used Date Smoking Tobacco: Every Day Cigarettes 1 50 Smokeless Tobacco: Never Tobacco Cessation:Ready to Q uit: Yes; Counseling Given: Not Answered Humiliation, Afraid, Rape, and Kick questionnair e Answer Date Recorded Within the last year, have y ou been afraid of your partner or ex-partner? No 09/04/2022 Within the last year, have y ou been humiliated or emotionally abused in other ways by your partner or ex-partner? No Within the last year, have y ou been kicked, hit, slapped, or otherwise physically hurt by your partner or ex-partner? No 09/04/2022 Within the last year, have y ou been raped or forced to have any kind of sexual activity by your partner or ex-partner? No 09/04/2022 AUDIT-C Answer Date Recorded Q1: How often do you have a drink containing alcohol? 4 or more times a week 09/04/2022 Q2: How many drinks containi ng alcohol do you have on a typical day when you are drinking? 1 or 2 3 Q3: How often do you have si x or more drinks on one occasion? Never 09/04/2022 Overall Financial Resource Strain (CARDIA) Answe r Date Recorded How hard is it for you to pa y for the very basics like food, housing, medical care, and heating? Not hard at all 09/04/2022 PHQ-2 Answer Date Recorded PHQ-2 Total Score (If total score is 3 or more points, staff should administer the PHQ-9) 0 09/04/2022 Exercise Vital Sign Answer Date Recorde d On average, how many days pe r week do you engage in moderate to strenuous exercise (like a brisk walk)? 7 days 09/04/2022 On average, how many minutes do you engage in exercise at this level? 90 min 09/04/2022 Sex and Gender Information Value Date Recorded Sex Assigned at Not on file Legal Sex Male 9:28 AM PLAYGROUND OFFICIAL Gender Identity Not on file Sexual Orientation Not on file Last Filed Vital Signs Vital Sign Reading Time Taken Comments Blood Pressure 150/90 02/10/2023 4:05 PM CDT Pulse 75 02/10/2023 10:13 AM CDT Temperature 36.6 C (97.8 F) 01/20/2021 9:41 AM CDT Respiratory Rate 18 01/20/2021 9:41 AM CDT Oxygen Saturation 99% 02/10/2023 10:13 AM CDT Inhaled Oxygen Concentration - - Weight 75.6 kg (166 lb 9.6 oz) 02/10/2023 10:13 AM CDT Height 175.3 cm (5' 9 ) 02/10/2023 10:13 AM CDT Body Mass Index 24.6 02/10/2023 10:13 AM CDT Plan of Treatment Scheduled Procedures Name Priority Associated Diagnoses Date/Ti me COLONOSCOPY History of colon polyps Procedures Procedure Name Priority Date/Time Associated Diagnosis Comments US ABDOMINAL AORTIC ANEURYSM SCREENING Schedule Routine, Read Routine (OP Routine) 02/05/2021 1:55 PM CDT Encounter for abdominal aortic aneurysm (AAA) screening COLONOSCOPY 06/21/2020 3:19 PM PLAYGROUND OFFICIAL from Last 3 Months or Most Recently Relevant to Health Maintenance Results * US Abdominal Aortic Aneurysm Screening (02/05/2021 1:55 PM CDT) Anatomical Region Laterality Modality Abdomen Ultrasound 02/05/2021 2:58 PM CDT Impressions 02/05/2021 3:07 PM CDT 1. No abdominal aortic aneurysm. Dictated by: Manohar Colin M.D. The radiology attending physician has personally reviewed this study, and had reviewed and/or edited this written report and agrees with it. Electronically signed by: Mikey Lugo M.D. Narrative 02/05/2021 3:07 PM CDT EXAMINATION: AORTA SONOGRAM HISTORY: 75-year-old male presents for abdominal aortic aneurysm screening. COMPARISON: None FINDINGS: Aorta: There is no abdominal aortic aneurysm. The infrarenal aorta measures 2.0 cm in its greatest AP dimension and 2.1 cm in its greatest transverse dimension. Atherosclerotic changes are noted. Iliac arteries: The left proximal common iliac artery measures 1.1 cm and the right 1.0 cm. Procedure Note Mikey Lugo MD - 02/05/2021 EXAMINATION: AORTA SONOGRAM HISTORY: 75-year-old male presents for abdominal aortic aneurysm screening. COMPARISON: None FINDINGS: Aorta: There is no abdominal aortic aneurysm. The infrarenal aorta measures 2.0 cm in its greatest AP dimension and 2.1 cm in its greatest transverse dimension. Atherosclerotic changes are noted. Iliac arteries: The left proximal common iliac artery measures 1.1 cm and the right 1.0 cm. IMPRESSION: 1. No abdominal aortic aneurysm. Dictated by: Manohar Colin M.D. The radiology attending physician has personally reviewed this study, and had reviewed and/or edited this written report and agrees with it. Electronically signed by: Mikey Lugo M.D. Result [facility] Porter Pendleton MD [facility] PROCEDURES Final Result * COLONOSCOPY (06/21/2020 3:19 PM PLAYGROUND OFFICIAL) Anatomical Region Laterality Modality Other Narrative Procedure Note Mt Clark MD - 06/21/2020 3:19 PM [facility] Patient Name: Rob Rojashead Procedure Date: 06/21/2020 3:19 PM Date of : 1945 Admit Type: Outpatient Age: 74 Gender: Male Attending MD: Mt Clark M.D. Room: [facility] ENDOSCOPY ROOM 3 Note Status: Finalized Procedure: Colonoscopy Indications: High risk colon cancer surveillance: Personalhistory of colonic polyps. Iron deficiency anemia Referring MD: Bran Castellon M.D. Providers: Mt Clark M.D. Medicines: Propofol per Anesthesia Complications: No immediate complications. Estimated Blood Loss: Estimated blood loss: none. Procedure: Pre-Anesthesia Assessment: - Immediately prior to administration ofmedications, the patient was re-assessed for adequacy to receive sedatives. - The risks and benefits of the procedure and the sedation options and risks were discussed with the patient. All questions were answered and informed consent was obtained. The benefits, risks and alternatives of theprocedure and sedation were discussed and informed consentwas obtained. All questions were answered. Please referto the signed informed consent document in the medical record. The colonoscopy was performed without difficulty. The patient tolerated the procedurewell. The quality of the bowel preparation was good. The scope was passed under direct vision. The [id number] endoscope was introduced through the anusand advanced to 10 cm into the ileum. The bowel preparation used was GoLYTELY. Findings: The perianal and digital rectal examinations were normal. A 6 mm polyp was found in the transverse colon. The polyp wassessile. The polyp was removed with a cold snare. Resection and retrieval were complete. A 4 mm polyp was found in the sigmoid colon. The polyp was sessile.The polyp was removed with a cold snare. Resection and retrieval were complete. A 4 mm polyp was found in the sigmoid colon. The polyp was sessile.The polyp was removed with a cold snare. Resection and retrieval were complete. Will colonic llarge mouthed diverticuli The terminal ileum appeared normal. Impression: 3 colonic polyps Will colonic diverticuli Small internal hemorrhoids No finding to explain the patient's anemia Recommendation: - Await pathology results. - Repeat colonoscopy in 5 years for surveillance, pending pathology result . Electronically Signed by Mt Clark M.D. Mt Clark M.D. 06/21/2020 3:47:21 PM . Number of Addenda: 0 Note Initiated On: 06/21/2020 3:19 PM Recognized by the [employer] for promoting quality in endoscopy Mt Clark MD ENDOSCOPY PROCEDURES F inal Result from Last 3 Months or Most Recently Relevant to Health Maintenance Insurance MEDICARE [employer] [facility] Address: [address] [place], [place] [id number] [employer] [facility] Address: [place] [id number] [place] [phone] [employer] [facility] Address: [address] [address] [place] [phone] [employer] [facility] MEDIC[facility] Address: [facility] [address] [place] [address] Advance Directives For more information, please contact: [phone] * Full Code (Latest Code Status on File) Date Activated Date Inactivated Comments 06/21/2020 1:54 PM 06/21/2020 8:36 PM Care Teams [employer]ishing [employer] Relationship Specialty Start Date End Date Porter Pendleton MD [address] [facility] [address] [place] [address] PCP - General Endocrinology Diabetes & Metabolism 05/15/21 Myah Obrien, coin machine servicer repairer Failure Coordinator 02/10/23
--- OUTSIDE RECORDS SUMMARY | 2024-06-06 12:33 | XMS_ITS | Continuity of Care Document ---
Author Name [facility] Organization [facility] Care Team Providers Care Communications Station Manager Name Role Phone [facility] Unavailable Unavailable Problems Combined list of problems from [facility] and [facility] facilities. It does not include entries that were removed or entered in error. Problem Status Onset Date Problem Type Date of Resolution Comments Source Benign hypertension Active Condition [facility] Gastroesophageal reflux disease Active Condition [facility] Hard of hearing Active Condition [facility] History of tobacco use Active Condition [facility] Sensorineural hearing loss of bilateral ears Active Condition [facility] Diagnosis: ICD-10-CM H90.3 Sensorineural hearing loss, bilateral Active Diagnosis [facility] Diagnosis: ICD-10-CM 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 Medication Details Route Status Patient Instructions Prescription Expires Prescription Number Last Dispense Date Ordering Provider Order Date Order Qty Source HYDROCHLORO THIAZIDE 12.5MG/EMILIO NOPRIL 20MG TAB TAKE ONE TABLET BY MOUTH EVERY MORNING ORAL ACTIVE SALIMA SEARS 2015 [facility] EDUARDO Loaiza LEVOCETIRIZ INE DIHYDROCHLO RIDE 5MG TAB TAKE ONE TABLET BY MOUTH EVERY MORNING NEEDED ORAL ACTIVE SALIMA SEARS 2016 [facility] EDUARDO Loaiza PANTOPRAZOL E NA 40MG TAB,EC TAKE ONE TABLET BY MOUTH EVERY MORNING NEEDED ORAL ACTIVE SALIMA SEARS 2018 [facility] EDUARDO Loaiza Immunizations Combined list of available immunizations from the Department of [facility] and [facility] facilities. Immunization Series Date Given Administered By Site Reaction Lot Number CVX Code Drug Barrel Rifler Status Comments Source COVID-19 (PFIZER), MRNA, LNP-S, PF, 30 MCG/0.3 ML DOSE 4 2021 208 complet ed [facility] COVID-19 (PFIZER), MRNA, LNP-S, PF, 30 MCG/0.3 ML DOSE 3 2020 208 complet ed [facility] INFLUENZA, UNSPECIFIED FORMULATION 2020 88 complet ed [facility] COVID-19 (BookBub), MRNA, LNP-S, PF, 30 MCG/0.3 ML DOSE 2 2020 208 complet ed [facility] COVID-19 ([facility]), MRNA, LNP-S, PF, 30 MCG/0.3 ML DOSE 1 2020 208 complet ed [facility] INFLUENZA, SEASONAL, INJECTABLE, PRESERVATIVE FREE 2019 140 complet ed Partner: [facility]. Administe red by: [facility] Clinician (NPI=Not Provided) . Partner Lot#: [id number] Mfr: [facility] INFLUENZA, INJECTABLE, QUADRIVALENT, PRESERVATIVE FREE 2018 150 complet ed [facility] INFLUENZA, HIGH DOSE SEASONAL 2017 135 complet ed Partner: [facility]. Administe red by: [facility] Clinician (NPI=Not Provided) . Partner Lot#: [id number] Mfr: [facility] INFLUENZA, INJECTABLE, MDCK, PRESERVATIVE FREE, QUADRIVALENT 2016 171 complet ed Partner: [facility] . Administe red by: [facility] Clinician (NPI=Not Provided) . Partner Lot#: [id number] Mfr: [facility] ZOSTER LIVE 2016 121 complet ed [facility] PNEUM[facility]JUG[facility] PCV 13 2016 133 complet ed per patient [facility] PNEUMOCOCCAL POLYSACCHARID E PPV23 2016 33 complet ed [facility] NOVEL INFLUENZA-H1N 1-09, ALL FORMULATIONS 2015 128 complet ed Partner: [facility] . Administe red by: [facility] Clinician (NPI=Not Provided) . Partner Lot#: [id number] Mfr: [employer] [facility] Encounters Combined list of: 1) [facility]counters [facility] facilities going backup to the last 18 months, not all [place] inpatient encounters are included; 2) Encounters from the Department of [facility] facilities going backup to 280 months. Location Location Details Encounter Type Encounter Number Reason For Visit Attending Provider ADM Date DC Date Status Disposition Source [facility] HEARING AID CHECK ONE EAR [id number] Diagnos is: ICD-10- CM H90.3 Sensori neural hearing loss, ZURI Mukherjee 01/19 [facility] COMPRE OPH EXAM EST PT 1/> [id number] Diagnos is: ICD-10- CM D31.31 Benign neoplas m of right choroid Madelin GUZMAN E 09/[address] [facility] HEARING AID REPAIR/MOD IFYING [id number] Diagnos is: ICD-10- CM H90.3 Sensori neural hearing loss, Anastasiia Brower 05/12 [facility] Social History Combined list of available smoking, tobacco, and other social history from Department of [facility] and [facility] facilities. Social History Type Response Date Comment Sourc e Tobacco smoking status NHIS VA-TOBACCO USER EVERY DAY 08/20/2021 [facility] History of tobacco use [place]-TOBACCO DOESNT USE WI 30 MIN WAKEUP 08/20/2021 [facility] History of tobacco use VA-TOBACCO USE > 15 LESS THAN 30 YEARS 10/30/2019 [facility] History of tobacco use VA-TOBACCO USE CO UNSEL NO 11/02/2018 [facility] History of tobacco use TOBACCO USER OFFE RED MEDS 09/02/2017 [facility] History of tobacco use CURRENT TOBACCO USER 10/02/2016 [facility] History of tobacco use CURRENT TOBACCO USER 12/24/2015 [facility] Plan of Care List of future care activities from [facility] facilities. Additional future care activities may be listed in the Assessment and Plan section. Date/Time Care Activity Care Activity Detail Facili ty 09/14/2024 AMBULATORY - SURGERY AMBULATORY - SURGERY [facility] Advance Directives List of completed, amended, or rescinded Advance Directives on record at [facility] facilities. An actual copy of the Directive is not included. Date Advance Directive Provider Source 10/07/2017 ADVANCE DIRECTIVE GORDO MENDEZ [facility] 10/07/2017 RESCINDED ADVANCE DIRECTIVE ANUPAMA MENDEZ [facility] 11/16/2016 ADVANCE DIRECTIVE MAISHA HORTA [facility]
--- OUTSIDE RECORDS SUMMARY | 2024-06-06 12:33 | XMS_ITS | Clinical Summary ---
Author Organization [facility] Address [address] [place] [address] Care Team Providers Care Seating Upholsterer Name Role Phone Porter Pendleton MD Primary [...] (06/06/2020): Added automatically from request for surgery [id number] History of colon polyps 06/03/2020 Essential hypertension, [...] intensity activity Limit EtOH 2/daily Working with [place] smoking cessation program Assessment & Plan (08/26/2021 [...] PF, IM (Arexvy) 11/27/2022 ZOSTER LIVE 10/05/2016 Surgical History Surgery Date Site/Laterality Comments APPENDECTOMY TONSILLECTOMY Medical History Medical History Date Comments Colon polyp GERD (gastroesophageal reflux disease) Hypertension Ankle fracture 06/08/2011 Family History Medical History Relation Name Comments Brain Aneurysm Father Heart attack Father Non-Hodgkin's Lymphoma Mother Heart attack Paternal Grandfather Miller No Known Problems Sister 1 No Known Problems Sister 2 Relation Name Status Comments Father Maternal Grandfather Maternal Grandmother Mother Paternal Grandfather Miller Paternal Grandmother Sister 1 Alive Sister 2 Alive Social History Tobacco Use Types Packs/Day Years [...] on file 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 Gender Identity Not on file Sexual Orientation Not on file Obstetrics History Last Filed Vital Signs Vital Sign Reading [...] Date/Ti me COLONOSCOPY History of colon polyps Health Maintenance Due Date Last Done Comments DTaP/Tdap/Td Vaccine (1 - Tdap) 1956 Hepatitis B Screening 1964 Zoster Vaccine (2 of 3) 11/30/2016 10/05/2016 Depression Screening 09/05/2023 09/04/2022, 08/26/2021, 01/09/2021 Fall Risk Assessment 09/05/2023 09/04/2022, 08/26/2021, 06/21/2020 Well Visit 65+ 09/05/2023 09/04/2022, 08/26/2021 Covid-19 Vaccine (2023-2 5 season) 2024 12/11/2023, 12/28/2022, 07/19/2021, Additional history exists Hepatitis C Screening Completed 05/13/2016 Pneumococcal vaccine 65+ Completed 09/10/2016, 04/2016 Colon Cancer Screening-Colonoscopy Discontinued 06/21/2020, 10/28/2016 Abdominal Aortic Aneurysm (A AA) Screen Completed 02/05/2021 Influenza Vaccine Completed 12/11/2023, , 01/08/2021, Additional history exists Procedures Procedure Name Priority Date/Time Associated Diagnosis Comments US ABDOMINAL AORTIC ANEURYSM SCREENING Schedule Routine, Read Routine (OP Routine) 02/05/2021 1:55 PM CDT Encounter for abdominal aortic aneurysm (AAA) screening COLONOSCOPY 06/21/2020 3:19 PM PRODUCTION BROACHER from Last 3 Months or Most Recently [...] it. Electronically signed by: Mikey Lugo M.D. Porter Pendleton MD [facility] [place]ED[place] Final Result * COLONOSCOPY (06/21/2020 3:19 PM PRODUCTION BROACHER) Anatomical Region Laterality Modality Other Narrative Procedure Note Mt Clark MD - 06/21/2020 3:19 PM [facility] Patient Name: Rob Olivier Procedure Date: 06/21/2020 3:19 PM Date of : 1945 Admit Type: Outpatient Age: 74 Gender: Male Attending MD: Mt Clark M.D. Room: [facility] ENDOSCOPY ROOM 3 Note Status: Finalized [...] scope was passed under direct vision. The [id number] endoscope was introduced through the anusand advanced [...] On: 06/21/2020 3:19 PM Recognized by the [employer] G[employer]intestinal End[employer] for promoting quality in endoscopy Mt Clark MD ENDOSCOPY PROCEDURES F inal Result from Last 3 Months or Most Recently Relevant to Health Maintenance Insurance MEDICARE SOLUTIONS MEDICARE SOLUTIONS MEDICARE [employer] MEDICARE SOLUTIONS Advance Directives For more information, please contact: [phone] * Full Code (Latest Code Status on File) Date Activated Date Inactivated Comments 06/21/2020 1:54 PM 06/21/2020 8:36 PM Care Teams Seating Upholsterer Relationship Specialty Start Date End Date Porter Pendleton MD [address] [facility] [address] [address] PCP - General Endocrinology Diabetes & Metabolism 05/15/21 Myah Obrien, new media strategist Failure Coordinator 02/10/23
== END 2024-06-06 10:39 | disposition home or self-care (01) ==
LOC: ANHLAB 10:40
PROVIDERS: PCP Family Medicine; Visit Provider Student in an Organized Health Care Education/Training Program
DX: E78.5 Hyperlipidemia, unspecified (principal); D64.9 Anemia, unspecified; I10 Essential (primary) hypertension; Z72.0 Tobacco use
CPT/HCPCS: 36415; 80053; 80061; 85025

== ENCOUNTER 2024-06-08 14:23 | Outpatient (CLI) | payer MEDICARE, SELFPAY ==
[2024-06-08 15:01] LABS: Anion Gap 11 mmol/L (4-12); Blood Urea Nitrogen 19 mg/dL (9-20); Calcium 8.9 mg/dL (8.4-10.2); Carbon Dioxide 25 mmol/L (22-30); Chloride 100 mmol/L (98-107); Estimated Glomerular Filt Rate > 60; Glucose 111 mg/dL (65-110); Potassium 4.3 mmol/L (3.4-5.0); Sodium 136 mmol/L (137-145)
== END 2024-06-08 14:24 | disposition home or self-care (01) ==
PROVIDERS: PCP Family Medicine; Visit Provider Student in an Organized Health Care Education/Training Program
DX: E87.5 Hyperkalemia (principal)
CPT/HCPCS: 36415; 80048

== ENCOUNTER 2024-06-30 12:47 | Outpatient (CLI) | payer MEDICARE, SELFPAY ==
[2024-06-30 13:27] LABS: Anion Gap 9 mmol/L (4-12); Blood Urea Nitrogen 15 mg/dL (9-20); Calcium 9.2 mg/dL (8.4-10.2); Carbon Dioxide 27 mmol/L (22-30); Chloride 100 mmol/L (98-107); Estimated Glomerular Filt Rate 52; Glucose 145 mg/dL (65-110); Potassium 4.2 mmol/L (3.4-5.0); Sodium 136 mmol/L (137-145)
--- OUTSIDE RECORDS SUMMARY | 2024-06-30 13:27 | XMS_ITS | Referral Summary ---
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 Result [facility] Porter Pendleton MD [facility] PROCEDURES Final Result * COLONOSCOPY (06/21/2020 3:19 PM SAWMILL PRODUCTION WORKER) Anatomical Region Laterality Modality Other Narrative Procedure Note Mt Clark MD - 06/21/2020 3:19 PM [facility] Patient Name: Rob Rojashead Procedure Date: 06/21/2020 3:19 PM Date of : 1945 Admit Type: Outpatient Age: 74 Gender: Male Attending MD: Mt Clark M.D. Room: [facility] ENDOSCOPY ROOM 3 Note Status: Finalized [...] scope was passed under direct vision. The [id number] endoscope was introduced through the anusand advanced [...] On: 06/21/2020 3:19 PM Recognized by the [place] Gastrointestinal Endoscopy for promoting quality in endoscopy Mt Clark MD ENDOSCOPY PROCEDURES F inal Result from Last 3 Months or Most Recently Relevant to Health Maintenance Insurance [facility] MEDICARE ADVANTAGE [facility] MEDICARE ADVANTAGE [facility] MEDICARE ADVANTAGE Advance Directives For more information, please contact: [phone] * Full Code (Latest Code Status on File) Date Activated Date Inactivated Comments 06/21/2020 1:54 PM 06/21/2020 8:36 PM Care Teams Tax Compliance Representative Relationship Specialty Start Date End Date Porter Pendleton MD [address] [address] PCP - General Endocrinology Diabetes & Metabolism 05/15/21 Myah Obrien, clay processing factory worker Failure Coordinator 02/10/23
--- OUTSIDE RECORDS SUMMARY | 2024-06-30 13:27 | XMS_ITS | Clinical Summary ---
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 Porter Pendleton MD [facility] US PROCEDURES Final Result * COLONOSCOPY (06/21/2020 3:19 PM SOCIAL MEDIA ASSISTANT) Anatomical Region Laterality Modality Other Narrative Procedure Note Mt Clark MD - 06/21/2020 3:19 PM [facility] Patient Name: Rob Olivier Procedure Date: 06/21/2020 3:19 PM Date of : 1945 Admit Type: Outpatient Age: 74 Gender: Male Attending MD: Mt Clark M.D. Room: [facility] ENDOSCOPY ROOM 3 Note Status: Finalized [...] scope was passed under direct vision. The [id number] endoscope was introduced through the anusand advanced [...] On: 06/21/2020 3:19 PM Recognized by the [employer] Gastrointestinal Endoscopy for promoting quality in endoscopy Mt Clark MD ENDOSCOPY PROCEDURES F inal Result from Last 3 Months or Most Recently Relevant to Health Maintenance Insurance [facility] MEDICARE ADVANTAGE [facility] Address: [place] [phone] [facility] MEDICARE ADVANTAGE [facility] Address: [place] [phone] [facility] Address: [place] [phone] [employer]HC MEDICARE ADVANTAGE [facility] Address: [place] [address] [place] [address] Advance Directives For more information, please contact: [phone] * Full Code (Latest Code Status on File) Date Activated Date Inactivated Comments 06/21/2020 1:54 PM 06/21/2020 8:36 PM Care Teams Catering Associate Relationship Specialty Start Date End Date Porter Pendleton MD [address] [address] PCP - General Endocrinology Diabetes & Metabolism 05/15/21 Myah Obrien, fingerprint classifier Failure Coordinator 02/10/23
--- OUTSIDE RECORDS SUMMARY | 2024-06-30 13:27 | XMS_ITS | Encounter Summary ---
Author Name [facility] Organization [facility] Address [address] [place] [address] Care Team Providers Care Crossband Layer Name Role Phone SALIMA SEARS Primary Care Provider Alanna hennessy Insurance Providers: All historical and current Section Date Range: From patient's date of to the date document was created. This section includes the names of all active insurance providers for the patient. Insurance Provider Type of Coverage Plan Name Start of Policy Coverage End of Policy Coverage Group Number Member ID Insurance Provider's Telephone Number Policy Peterson's Name Patient's Relationship to Policy Peterson AARP [facility] (WNR) MEDICARE ADVANTAGE [facility] (WNR) Nov 10, 2014 [id number] HANSEL LERMA PATIENT MEDICARE PART D (WNR) MEDICARE (M) PART D Apr 12, 2014 PART D [id number] [phone] HANSEL LERMA PATIENT MEDICARE PART D (WNR) MEDICARE (M) PART D Apr 12, 2014 PART D [id number] [phone] HANSEL LERMA PATIENT [facility] (WNR) MEDICARE ADVANTAGE [facility] (WNR) Nov 10, 2014 [id number] HANSEL LERMA PATIENT [facility] (WNR) MEDICARE ADVANTAGE [facility] (WNR) Apr 12, 2014 [id number] [phone] HANSEL LERMA PATIENT Selected Encounter This section includes the information on record at [place] for the Encounter. 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 Date/Time Primary/Secondary Diagnosis Diagnosis Name Provider Source Sep 20, 2023 10:44 AM PRIMARY Benign neoplasm of right choroid FILOMENA GUZMANGABY ON E [facility] Sep 20, 2023 10:44 AM SECONDARY Presence of intraocular lens OTILIOGudeliaJESUS ON E [facility] Sep 20, 2023 10:44 AM SECONDARY Unspecified disorder of refraction MEGANJESUS ON E [facility] Advance Directives: All historical and current Section Date Range: From patient's date of to the date document was created. This section includes ALL of a patient's completed or amended [facility] Advance and Rescinded Directives. The entries below indicate that a directive exists for the patient, but an actual copy is not included with this document. The data comes from all [place] facilities. Date Advance Directives Provider Source Oct 07, 2017 ADVANCE DIRECTIVE GORDO MENDEZ [facility] Oct 07, 2017 RESCINDED ADVANCE DIRECTIVE ANUPAMA MENDEZ [facility] Nov 16, 2016 ADVANCE DIRECTIVE MAISHA HORTA [facility] Encounter Notes: All associated encounter notes This section contains the clinical notes associated to the Encounter. Date/Time Encounter Note(s) Provider Source Sep 20, 2023 09:11 AM OPTOMETRY NOTE: LOCAL TITLE: OPTOMETRY NOTE STANDARD TITLE: OPTOMETRY NOTE DATE OF NOTE: SEP 20, 2023@09:11 ENTRY DATE: SEP 20, 2023@09:11:13 AUTHOR: CIRO GUZMAN COSIGNER: URGENCY: STATUS: COMPLETED Last seen: 09/25/2022 CC: (+)Routine eye exam pt denies any changes to vision Ocular meds: None Ocular ROS: (-) ocular surgeries/injuries/lasers 1. Refractive error/Presbyopia 2. Pseudophakia OU 3. Dry Eye OU 4. Choroidal nevus OD x 3 5. Nevus of caruncle OD Family OcHX: (-) blindness (-) glaucoma (-) AMD (-) RD Cardiovascular ROS: no change from problem & medication lists CPRS Problem list, medications and allergies reviewed: CPRS Serology for Diabetes No GLUCOSE EO data found No HEMOGLOBIN A1C EO data found Cardiovascular BP: 130/68 (08/20/2021 14:51) Pulse: 84 (08/20/2021 14:44) Neuro: Orientation: Normal Psych: Mood/Affect: Normal Depression/suicide ideation: NO VISUAL ACUITY With correction Distance Visual Acuity Co Founder And Chairman OD: 20/20-2 OS: 20/20-1 Pupils PERRL OU (-)APD Co Founder And Chairman Confrontation: FTFC OU Extra-Ocular Muscles Full OU Externals/adnexa: Dermatochalasis OU Refraction: Co Founder And Chairman OD: +1.50 -1.75 x065 20/20 OS: +0.75 -1.25 x140 20/20-1 Add: +2.50 SLIT LAMP EXAMINATION Lids/Lashes/Lacrimal No blepharitis OU Pigmented spot on caruncle OD, noted prior, photodocumented in the past (2021) Conjunctiva/Sclera White/quiet OU Cornea Clear OU Ant Chamber Deep and quiet OU Iris Normal, (-)NVI OU Lens PCIOL well centered OU, trace PCO temporal OD Intraocular Pressures (Goldmann) 1 gtt fluress Date OD OS Time Meds 09/25/22 15 15 1052 None 09/20/2023 14 14 0925 None Co Founder And Chairman RETINAL EVALUATION 1 phenyleph 2.5%, 1 trop 1% OU DFE Dilated retinal exam Optic Nerve OD: 0.40 CDR Flat, pink, distinct (-)NVD OS: 0.40 CDR Flat, pink, distinct (-)NVD Vessels: 2/3 OU, (-)NVE OU Posterior Pole: OD: (-) Hemorrhages (-) exudates (-) cotton wool spots Faint choroidal nevi sup-nasal, sup-temp (?), and inf-temp OS: (-) Hemorrhages (-) exudates (-) cotton wool spots (+)pigmnentary changes temp to ONH (+)few scattered drusen Macula: OD: mottling sup near arcade; Flat, (-)CSME OS: Flat, clear (-)CSME Periphery: OD: Flat and attached; atrophy and pigmentary changes 360 OS: Flat and attached; atrophy and pigmentary changes 360 Vitreous: No PVD O.U. Michelle Enriquez, Optometry Co Founder And Chairman participated in the care of this under my supervision. I personally examined the patient and provided the following assessment and plan: Assessment/Plan 09/20/2023 1. Pseudophakia OU - trace PCO OD - ed. pt on findings - Monitor 2. Choroidal Nevi OD - Faint, flat, 2 or 3 nevi - Appear stable - Monitor - Will updated fundus photos when camera available 3. Pigmentation on caruncle OD - noted on previous exams, photos taken in the past - Appears stable to prior photos, pt reports stability - Monitor - Will update photo when able at next exam - advised pt to return immediately if notes changse 4. Refreactive Error/Presbyopia OU - stable BVA with refraction - order new glasses Pt edu on all findings and given the opportunity to have questions answered RTC 12 months with CEE, sooner with jayden /gigi/ CIRO GUZMAN OD Staff Physician, Optometry Signed: 09/20/2023 10:44 CIRO GUZMAN [facility]
--- OUTSIDE RECORDS SUMMARY | 2024-06-30 13:27 | XMS_ITS | Continuity of Care Document ---
Author Name [facility] Organization [facility] Care Team Providers Care Metalworking Instructor Name Role Phone [facility] Unavailable Unavailable Problems Combined list of problems from [facility] and [facility] facilities. It does not include entries that were removed or entered in error. Problem Status Onset Date Problem Type Date of Resolution Comments Source Benign hypertension Active Condition [facility] Gastroesophageal reflux disease Active Condition [facility] Hard of hearing Active Condition [facility] History of tobacco use Active Condition [facility] Sensorineural hearing loss of bilateral ears Active Condition [facility] Diagnosis: ICD-10-CM H90.3 Sensorineural hearing loss, bilateral Active Diagnosis 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 Medication Details Route Status Patient Instructions Prescription Expires Prescription Number Last Dispense Date Ordering Provider Order Date Order Qty Source HYDROCHLORO THIAZIDE 12.5MG/EMILIO NOPRIL 20MG TAB TAKE ONE TABLET BY MOUTH EVERY MORNING ORAL ACTIVE SALIMA SEARS 2015 [facility] EDUARDO Loaiza LEVOCETIRIZ INE DIHYDROCHLO RIDE 5MG TAB TAKE ONE TABLET BY MOUTH EVERY MORNING NEEDED ORAL ACTIVE SALIMA SEARS 2016 [facility] EDUARDO Loaiza PANTOPRAZOL E NA 40MG TAB,EC TAKE ONE TABLET BY MOUTH EVERY MORNING NEEDED ORAL ACTIVE SALIMA SEARS 2018 [facility] EDUARDO Loaiza Immunizations Combined list of available immunizations from the Department of [facility] and [facility] facilities. Immunization Series Date Given Administered By Site Reaction Lot Number CVX Code Drug Poultry Picker Status Comments Source COVID-19 (PFIZER), MRNA, LNP-S, PF, 30 MCG/0.3 ML DOSE 4 2021 208 complet ed [facility] COVID-19 (PFIZER), MRNA, LNP-S, PF, 30 MCG/0.3 ML DOSE 3 2020 208 complet ed [facility] INFLUENZA, UNSPECIFIED FORMULATION 2020 88 complet ed [facility] COVID-19 ([place]), MRNA, LNP-S, PF, 30 MCG/0.3 ML DOSE 2 2020 208 complet ed [facility] COVID-19 ([facility]), MRNA, LNP-S, PF, 30 MCG/0.3 ML DOSE 1 2020 208 complet ed [facility] INFLUENZA, SEASONAL, INJECTABLE, PRESERVATIVE FREE 2019 140 complet ed Partner: [facility]. Administe red by: [facility] Clinician (NPI=Not Provided) . Partner Lot#: [id number] Mfr: [facility] INFLUENZA, INJECTABLE, QUADRIVALENT, PRESERVATIVE FREE 2018 150 complet ed [facility] INFLUENZA, HIGH DOSE SEASONAL 2017 135 complet ed Partner: [facility]. Administe red by: [facility] Clinician (NPI=Not Provided) . Partner Lot#: [id number] Mfr: [employer] [facility] DIVISIO N INFLUENZA, INJECTABLE, MDCK, PRESERVATIVE FREE, QUADRIVALENT 2016 171 complet ed Partner: [facility] . Administe red by: [facility] Clinician (NPI=Not Provided) . Partner Lot#: [id number] Mfr: [facility] ZOSTER LIVE 2016 121 complet ed [facility] PNEUMOC[facility]JUGATE PCV 13 2016 133 complet ed per patient [facility] PNEUMOCOCCAL POLYSACCHARID E PPV23 2016 33 complet ed [facility] INFLUENZA, HIGH-DOSE, TRIVALENT, PF 1 2015 135 complet ed [facility] NOVEL INFLUENZA-H1N 1-09, ALL FORMULATIONS 2015 128 complet ed Partner: [facility] . Administe red by: [facility] Clinician (NPI=Not Provided) . Partner Lot#: [id number] Mfr: [employer] [facility] Encounters Combined list of: 1) Encounters from Department of Veterans Affairs facilities going backup to the last 18 months, not all VA inpatient encounters are included; 2) Encounters from the Department of Defense facilities going backup to 280 months. Location Location Details Encounter Type Encounter Number Reason For Visit Attending Provider ADM Date DC Date Status Disposition Source [facility] HEARING AID CHECK ONE EAR [id number] Diagnos is: ICD-10- CM H90.3 Sensori neural hearing loss, ZURI Mukherjee 01/19 [facility] COMPRE OPH EXAM EST PT 1/> [id number] Diagnos is: ICD-10- CM D31.31 Benign neoplas m of right choroid Madelin GUZMAN 09/19 [facility] N [facility] HEARING AID REPAIR/MOD IFYING [id number] Diagnos is: ICD-10- CM H90.3 Sensori neural hearing loss, Anastasiia Brower 05/12 [facility] Social History Combined list of available smoking, tobacco, and other social history from Department of Defense and Veterans Affairs facilities. Social History Type Response Date Comment Sourc e Tobacco smoking status NHIS VA-TOBACCO USER EVERY DAY 08/20/2021 [facility] History of tobacco use AL-TOBACCO DOESNT USE WI 30 MIN WAKEUP 08/20/2021 [facility] History of tobacco use VA-TOBACCO DOESNT USE WI 30 MIN WAKEUP 10/30/2019 [facility] of [facility] 11/02/2018 [facility] History of tobacco use TOBACCO USER OFFE RED MEDS 09/02/2017 [facility] History of tobacco use CURRENT TOBACCO USER 10/02/2016 [facility] History of tobacco use CURRENT TOBACCO USER 12/24/2015 [facility] Plan of Care List of future care activities from [facility] facilities. Additional future care activities may be listed in the Assessment and Plan section. Date/Time Care Activity Care Activity Detail Facili ty 09/14/2024 AMBULATORY - SURGERY AMBULATORY - SURGERY [facility] Advance Directives List of completed, amended, or rescinded Advance Directives on record at [facility] facilities. An actual copy of the Directive is not included. Date Advance Directive Provider Source 10/07/2017 ADVANCE DIRECTIVE GORDO MENDEZ [facility] 10/07/2017 RESCINDED ADVANCE DIRECTIVE ANUPAMA MENDEZ [facility] 11/16/2016 ADVANCE DIRECTIVE MAISHA HORTA [facility]
== END 2024-06-30 12:48 | disposition home or self-care (01) ==
PROVIDERS: PCP Family Medicine; Visit Provider Student in an Organized Health Care Education/Training Program
DX: I10 Essential (primary) hypertension (principal)
CPT/HCPCS: 36415; 80048

== ENCOUNTER 2024-07-04 13:23 | Outpatient (CLI) | payer MEDICARE, SELFPAY ==
[2024-07-04 13:59] LABS: Add Urine Microscopic? YES; Appearance Urine Clear (Clear); Bacteria Urine None Seen /hpf; Bilirubin Urine Negative (Negative); Blood Urine Negative (Negative); Color Urine Yellow (Yellow); Glucose Urine UA Negative (Negative); Ketones Urine Trace mg/dL (Negative); Leukocyte Esterase Ur Negative LEU/UL (Negative); Nitrate Urine Negative (Negative); Non Pathogenic Casts 0-2; Protein Urine 1+ mg/dL (Negative); RBC Urine 0-2 /hpf (0-2); Specific Grav Ur 1.021 (1.001-1.035); Squamous Epithelial Cell Urine None Seen /hpf (Few); WBC Urine 0-5 /hpf (0-3)
[2024-07-04 14:53] LABS: Anion Gap 10 mmol/L (4-12); Blood Urea Nitrogen 25 mg/dL (9-20); Calcium 9.1 mg/dL (8.4-10.2); Carbon Dioxide 27 mmol/L (22-30); Chloride 99 mmol/L (98-107); Estimated Glomerular Filt Rate 48; Glucose 102 mg/dL (65-110); Sodium 136 mmol/L (137-145)
--- OUTSIDE RECORDS SUMMARY | 2024-07-04 15:33 | XMS_ITS | Continuity of Care Document ---
Author Name [facility] Organization [facility] Care Team Providers Care Radiological Equipment Specialist Name Role Phone [facility] Unavailable Unavailable Problems Combined list of problems from [facility] and [facility] facilities. It does not include entries that were removed or entered in error. Problem Status Onset Date Problem Type Date of Resolution Comments Source Benign hypertension Active Condition [facility] Gastroesophageal reflux disease Active Condition [facility] Hard of hearing Active Condition 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 Medication Details Route Status Patient Instructions Prescription Expires Prescription Number Last Dispense Date Ordering Provider Order Date Order Qty Source HYDROCHLORO THIAZIDE 12.5MG/EMILIO NOPRIL 20MG TAB TAKE ONE TABLET BY MOUTH EVERY MORNING ORAL ACTIVE SALIMA SEARS 2015 [facility] EDUARDO Loaiza LEVOCETIRIZ INE DIHYDROCHLO RIDE 5MG TAB TAKE ONE TABLET BY MOUTH EVERY MORNING NEEDED ORAL ACTIVE SALIMA SEARS 2016 [facility] EDUARDO Loaiza PANTOPRAZOL E NA 40MG TAB,EC TAKE ONE TABLET BY MOUTH EVERY MORNING NEEDED ORAL ACTIVE SALIMA SEARS 2018 [facility] EDUARDO Loaiza Immunizations Combined list of available immunizations from the Department of [facility] and [facility] facilities. Immunization Series Date Given Administered By Site Reaction Lot Number CVX Code Drug Vice President Regulatory Status Comments Source COVID-19 (PFIZER), MRNA, LNP-S, PF, 30 MCG/0.3 ML DOSE 4 2021 208 complet ed [facility] COVID-19 (PFIZER), MRNA, LNP-S, PF, 30 MCG/0.3 ML DOSE 3 2020 208 complet ed [facility] INFLUENZA, UNSPECIFIED FORMULATION 2020 88 complet ed [facility] COVID-19 ([facility]), MRNA, LNP-S, PF, 30 MCG/0.3 ML DOSE 2 2020 208 complet ed [facility] COVID-19 ([facility]), MRNA, LNP-S, PF, 30 MCG/0.3 ML DOSE 1 2020 208 complet ed [facility] INFLUENZA, SEASONAL, INJECTABLE, PRESERVATIVE FREE 2019 140 complet ed Partner: [facility]. Administe red by: [facility] Clinician (NPI=Not Provided) . Partner Lot#: [id number] Mfr: [facility] N INFLUENZA, INJECTABLE, QUADRIVALENT, PRESERVATIVE FREE 2018 150 complet ed [facility] N INFLUENZA, HIGH DOSE SEASONAL 2017 135 complet ed Partner: [facility]. Administe red by: [facility] Clinician (NPI=Not Provided) . Partner Lot#: [id number] Mfr: [employer] [facility] DIVISIO N INFLUENZA, INJECTABLE, MDCK, PRESERVATIVE FREE, QUADRIVALENT 2016 171 complet ed Partner: [facility] . Administe red by: [facility] Clinician (NPI=Not Provided) . Partner Lot#: [id number] Mfr: [facility] N ZOSTER LIVE 2016 121 complet ed [facility] PNEUMOCOCCAL CONJUGATE PCV 13 2016 133 complet ed per patient [facility] PNEUMOCOCCAL POLYSACCHARID E PPV23 2016 33 complet ed [facility] INFLUENZA, HIGH-DOSE, TRIVALENT, PF 1 2015 135 complet ed [facility] NOVEL INFLUENZA-H1N 1-09, ALL FORMULATIONS 2015 128 complet ed Partner: [facility] . Administe red by: [facility] Clinician (NPI=Not Provided) . Partner Lot#: [id number] Mfr: Sanofi [employer] [facility] Encounters Combined list of: 1) Encounters from Department of Veterans Affairs facilities going backup to the last 18 months, not all VA inpatient encounters are included; 2) Encounters from the Department of Defense facilities going backup to 280 months. Location Location Details Encounter Type Encounter Number Reason For Visit Attending Provider ADM Date DC Date Status Disposition Source [facility] HEARING AID CHECK ONE EAR [id number] Diagnos is: ICD-10- CM H90.3 Sensori neural hearing loss, ZURI Mukherjee 01/19 [facility] COMPRE OPH EXAM EST PT 1/> [id number] Diagnos is: ICD-10- CM D31.31 Benign neoplas m of right choroid Madelin GUZMAN 09/19 [facility] N [facility] HEARING AID REPAIR/MOD IFYING [id number] Diagnos is: ICD-10- CM H90.3 Sensori neural hearing loss, Anastasiia Brower 05/12 [facility] Social History Combined list of available smoking, tobacco, and other social history from Department of Defense and Veterans Affairs facilities. Social History Type Response Date Comment Sourc e Tobacco smoking status NHIS VA-TOBACCO USER EVERY DAY 08/20/2021 [facility] History of tobacco use [place]-TOBACCO DOESNT USE WI 30 MIN WAKEUP 08/20/2021 [facility] History of tobacco use VA-TOBACCO DOESNT USE WI 30 MIN WAKEUP 10/30/2019 [facility] of [facility]2018 [facility] History of tobacco use TOBACCO USER OFFE RED MEDS 09/02/2017 [facility] History of tobacco use CURRENT TOBACCO USER 10/02/2016 [facility] History of tobacco use CURRENT TOBACCO USER 12/24/2015 [facility] Plan of Care List of future care activities from [facility] facilities. Additional future care activities may be listed in the Assessment and Plan section. Date/Time Care Activity Care Activity Detail Facili ty 09/14/2024 AMBULATORY - SURGERY [facility] - SURGERY [facility] Advance Directives List of completed, amended, or rescinded Advance Directives on record at [facility] facilities. An actual copy of the Directive is not included. Date Advance Directive Provider Source 10/07/2017 ADVANCE DIRECTIVE GORDO MENDEZ [facility] 10/07/2017 RESCINDED ADVANCE DIRECTIVE ANUPAMA MENDEZ [facility] 11/16/2016 ADVANCE DIRECTIVE MAISHA HORTA [facility]
--- OUTSIDE RECORDS SUMMARY | 2024-07-04 15:33 | XMS_ITS | Referral Summary ---
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 Result [facility] Porter Pendleton MD [facility] PROCEDURES Final Result * COLONOSCOPY (06/21/2020 3:19 PM PRINT LINE OPERATOR) Anatomical Region Laterality Modality Other Narrative Procedure Note Mt Clark MD - 06/21/2020 3:19 PM [facility] Patient Name: Rob Rojashead Procedure Date: 06/21/2020 3:19 PM Date of : 1945 Admit Type: Outpatient Age: 74 Gender: Male Attending MD: Mt Clark M.D. Room: [facility] ENDOSCOPY ROOM 3 Note Status: Finalized Procedure: [...] scope was passed under direct vision. The [id number] endoscope was introduced through the anusand advanced [...] On: 06/21/2020 3:19 PM Recognized by the [place] [employer] for promoting quality in endoscopy Mt Clark MD ENDOSCOPY PROCEDURES F inal Result from Last 3 Months or Most Recently Relevant to Health Maintenance Insurance [facility] MEDICARE ADVANTAGE [facility] MEDICARE ADVANTAGE [facility] MEDICARE ADVANTAGE Advance Directives For more information, please contact: [phone] * Full Code (Latest Code Status on File) Date Activated Date Inactivated Comments 06/21/2020 1:54 PM 06/21/2020 8:36 PM Care Teams Nursing Consultant Relationship Specialty Start Date End Date Porter Pendleton MD [address] [address] PCP - General Endocrinology Diabetes & Metabolism 05/15/21 Myah Obrien, lead retail sales associate Failure Coordinator 02/10/23
--- OUTSIDE RECORDS SUMMARY | 2024-07-04 15:33 | XMS_ITS | Clinical Summary ---
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 Porter Pendleton MD [facility] PROCEDURES Final Result * COLONOSCOPY (06/21/2020 3:19 PM DAY CAMP COUNSELOR) Anatomical Region Laterality Modality Other Narrative Procedure [...] scope was passed under direct vision. The [id number] endoscope was introduced through the anusand advanced [...] On: 06/21/2020 3:19 PM Recognized by the [place] for promoting quality in endoscopy Mt Clark MD ENDOSCOPY PROCEDURES F inal Result from Last 3 Months or Most Recently Relevant to Health Maintenance Insurance [facility] MEDICARE ADVANTAGE Member Subscriber Plan / Payer (Ef fective 2020-Present) Name:Rob Olivier Relation to Subscriber:Self Name:Rob Olviier Payer ID:[id number] (NAIC) Type:[facility] MEDICARE Address: [place] [phone] [facility] MEDICARE ADVANTAGE Member Subscriber Plan / Payer (Ef fective 2020-Present) Name:Rob Olivier Relation to Subscriber:Self Name:Rob Olivier Payer ID:[id number] (NAIC) Type:[facility] MEDICARE Address: [place] [phone] Member Subscriber Plan / Payer (Ef fective 2020-Present) Name:Rob Olivier Relation to Subscriber:Self Name:Rob Olivier Payer ID:[id number] (NAIC) Type:[facility] MEDICARE Address: [place] [phone] [employer] MEDICARE ADVANTAGE Advance Directives For more information, please contact: [phone] * Full Code (Latest Code Status on File) Date Activated Date Inactivated Comments 06/21/2020 1:54 PM 06/21/2020 8:36 PM Care Teams Orthopaedic Surgeon Relationship Specialty Start Date End Date Porter Pendleton MD [address] [address] PCP - General Endocrinology Diabetes & Metabolism 05/15/21 Myah Obrien, buffing wheel former automatic Failure Coordinator 02/10/23
[2024-07-06 11:47] LABS: Osmolality, Urine 739 mOsm/kg (50-1200)
== END 2024-07-04 13:24 | disposition home or self-care (01) ==
PROVIDERS: PCP Family Medicine; Visit Provider Family Medicine
DX: N18.30 Chronic kidney disease, stage 3 unspecified (principal); N28.9 Disorder of kidney and ureter, unspecified; E87.1 Hypo-osmolality and hyponatremia
CPT/HCPCS: 36415; 80048; 81001; 83930; 83935

== ENCOUNTER 2024-07-17 08:44 | Outpatient (CLI) | payer MEDICARE, SELFPAY ==
--- NOTE | ~2024-07-17 | US_ITS ---
Renal-Bladder ultrasound Clinical History: Disorder of kidney and ureter, unspecified Technique: Real-time sonographic imaging of the kidneys and urinary bladder was performed. Findings: The right kidney measures 10.7 cm in length and the left kidney measures 10.5 cm. There is no hydronephrosis or renal calculus identified. Renal cortical echogenicity is within normal limits. No renal mass lesion is identified. The urinary bladder is moderately distended at the time of this exam. No intraluminal echoes are iden tified. No abnormal wall thickening is seen. Impression: Unremarkable ultrasound of the kidneys and urinary bladder. Reviewed, dictated and finalized at location M. Impression: Unremarkable ultrasound of the kidneys and urinary bladder.
--- OUTSIDE RECORDS SUMMARY | 2024-07-17 09:11 | XMS_ITS | Clinical Summary ---
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 Porter Pendleton MD [facility] [place] PROCEDURES Final Result * COLONOSCOPY (06/21/2020 3:19 PM INFORMATION TECHNOLOGY INSTRUCTOR) Anatomical Region Laterality Modality Other Narrative Procedure Note Mt Clark MD - 06/21/2020 3:19 PM [facility]ST [facility] Patient Name: Rob Olivier Procedure Date: 06/21/2020 3:19 PM Date of : 1945 Admit Type: Outpatient Age: 74 Gender: Male Attending MD: Mt Clark M.D. Room: [facility] ENDOSCOPY ROOM 3 Note Status: Finalized Procedure: [...] scope was passed under direct vision. The [id number] endoscope was introduced through the anusand advanced [...] On: 06/21/2020 3:19 PM Recognized by the [place] [employer] for promoting quality in endoscopy Mt Clark MD ENDOSCOPY PROCEDURES F inal Result from Last 3 Months or Most Recently Relevant to Health Maintenance Insurance [facility] MEDICARE ADVANTAGE Member Subscriber Plan / Payer (Ef fective 2020-Present) Name:Rob Olivier Relation to Subscriber:Self Name:Rob Olivier Payer ID:[id number] (NAIC) Type:[facility] MEDICARE Address: [place] [phone] [facility] MEDICARE ADVANTAGE Member Subscriber Plan / Payer (Ef fective 2020-Present) Name:Rob Olivier Relation to Subscriber:Self Name:Rob Olivier Payer ID:[id number] (NAIC) Type:[facility] MEDICARE Address: [place] [phone] Member Subscriber Plan / Payer (Ef fective 2020-Present) Name:Rob Olivier Relation to Subscriber:Self Name:Rob Olivier Payer ID:[id number] (NAIC) Type:[facility] MEDICARE Address: [place] [phone] [employer] MEDICARE ADVANTAGE Advance Directives For more information, please contact: [phone] * Full Code (Latest Code Status on File) Date Activated Date Inactivated Comments 06/21/2020 1:54 PM 06/21/2020 8:36 PM Care Teams Welfare Administrator Relationship Specialty Start Date End Date Porter Pendleton MD [address] [address] PCP - General Endocrinology Diabetes & Metabolism 05/15/21 Myah Obrien, ski patrol Failure Coordinator 02/10/23
--- OUTSIDE RECORDS SUMMARY | 2024-07-17 09:12 | XMS_ITS | Referral Summary ---
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 Electronically signed by: Mikey uLgo M.D. Narrative 02/05/2021 3:07 PM CDT EXAMINATION: [...] Electronically signed by: Mikey Lugo M.D. Result [facility] Porter Pendleton MD [facility] PROCEDURES Final Result * COLONOSCOPY (06/21/2020 3:19 PM ORTHOPEDICS TEACHER) Anatomical Region Laterality Modality Other Narrative Procedure Note Mt Clark MD - 06/21/2020 3:19 PM CST [facility] Patient Name: Rob Rojashead Procedure Date: 06/21/2020 3:19 PM Date of : 1945 Admit Type: Outpatient Age: 74 Gender: Male Attending MD: Mt Clark M.D. Room: [facility] ENDOSCOPY ROOM 3 Note Status: Finalized Procedure: [...] scope was passed under direct vision. The [id number] endoscope was introduced through the anusand advanced [...] On: 06/21/2020 3:19 PM Recognized by the [place] [employer] for promoting quality in endoscopy Mt Clark MD ENDOSCOPY PROCEDURES F inal Result from Last 3 Months or Most Recently Relevant to Health Maintenance Insurance [facility] MEDICARE ADVANTAGE [facility] MEDICARE ADVANTAGE [facility] MEDICARE ADVANTAGE Advance Directives For more information, please contact: [phone] * Full Code (Latest Code Status on File) Date Activated Date Inactivated Comments 06/21/2020 1:54 PM 06/21/2020 8:36 PM Care Teams Workday Director Relationship Specialty Start Date End Date Porter Pendleton MD [id number] [address] PCP - General Endocrinology Diabetes & Metabolism 05/15/21 Myah Obrien, django developer Failure Coordinator 02/10/23
== END 2024-07-17 08:45 | disposition home or self-care (01) ==
PROVIDERS: PCP Family Medicine; Visit Provider Family Medicine
DX: N28.9 Disorder of kidney and ureter, unspecified (principal)
CPT/HCPCS: 76775

== ENCOUNTER 2024-09-27 13:01 | Outpatient (CLI) | payer MEDICARE, SELFPAY ==
[2024-09-27 13:46] LABS: Albumin Level 4.2 g/dL (3.5-5.1); Anion Gap 11 mmol/L (4-12); Blood Urea Nitrogen 21 mg/dL (9-20); Calcium 8.9 mg/dL (8.4-10.2); Carbon Dioxide 24 mmol/L (22-30); Chloride 99 mmol/L (98-107); Estimated Glomerular Filt Rate 56; Glucose 132 mg/dL (65-110); Phosphorus 3.6 mg/dL (2.5-4.5); Potassium 3.1 mmol/L (3.4-5.0); Sodium 134 mmol/L (137-145)
[2024-09-27 13:48] LABS: Creatinine Urine 125.7 mg/dL; Total Protein Urine Random 21 mg/dL; Ur Ttl Prot Creatinine Ratio 0.17 mg/mg (0-0.20)
[2024-09-27 13:55] LABS: Complement C3 97 mg/dL (88-165)
--- OUTSIDE RECORDS SUMMARY | 2024-09-27 14:28 | XMS_ITS | Continuity of Care Document ---
Author Name [facility] Organization [facility] Care Team Providers Care Pipe Smoker Machine Operator Name Role Phone [facility] Unavailable Unavailable Problems Combined list of problems from [facility] and [facility] facilities. It does not include entries that were removed or entered in error. Problem Status Onset Date Problem Type Date of Resolution Comments Source Benign hypertension Active Condition [facility] Gastroesophageal reflux disease Active Condition [facility] Hard of hearing Active Condition 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 Medication Details Route Status Patient Instructions Prescription Expires Prescription Number Last Dispense Date Ordering Provider Order Date Order Qty Source HYDROCHLORO THIAZIDE 12.5MG/EMILIO NOPRIL 20MG TAB TAKE ONE TABLET BY MOUTH EVERY MORNING ORAL ACTIVE SALIMA SEARS 2015 [facility] EDUARDO Loaiza LEVOCETIRIZ INE DIHYDROCHLO RIDE 5MG TAB TAKE ONE TABLET BY MOUTH EVERY MORNING NEEDED ORAL ACTIVE SALIMA SEARS 2016 [facility] EDUARDO Loaiza PANTOPRAZOL E NA 40MG TAB,EC TAKE ONE TABLET BY MOUTH EVERY MORNING NEEDED ORAL ACTIVE SALIMA SEARS 2018 [facility] EDUARDO Loaiza Immunizations Combined list of available immunizations from the Department of [facility] and [facility] facilities. Immunization Series Date Given Administered By Site Reaction Lot Number CVX Code Drug Electric Needle Specialist Status Comments Source COVID-19 ([facility]), MRNA, LNP-S, PF, ROSETTA-SUCROSE, 30 MCG/0.3 ML (AGES 12+ YEARS) 5 2023 309 complet ed HISTORICA L INFORMATI ON - FROM OTHER [facility], [facility] INFLUENZA, ADJUVANTED, TRIVALENT, PF 8 2023 168 complet ed HISTORICA L INFORMATI ON - FROM OTHER [facility], [facility] COVID-19 ([facility]), MRNA, LNP-S, PF, ROSETTA-SUCROSE, 30 MCG/0.3 ML (AGES 12+ YEARS) 4 2022 309 complet ed HISTORICA L INFORMATI ON - FROM OTHER [facility], [facility] INFLUENZA, HIGH-DOSE, QUADRIVALENT, PF 7 2022 197 complet ed HISTORICA L INFORMATI ON - FROM OTHER [facility] RSV, BIVALENT, PROTEIN SUBUNIT RSVPREF, DILUENT RECONSTITUTED , 0.5 ML, PF 1 2022 305 complet ed HISTORICA L INFORMATI ON - FROM OTHER [facility], [facility] COVID-19 ([facility]), MRNA, LNP-S, BIVALENT, PF, 30 MCG/0.3 ML DOSE 3 2021 300 complet ed HISTORICA L INFORMATI ON - FROM OTHER [facility], [facility] INFLUENZA, HIGH-DOSE, QUADRIVALENT, PF 6 2021 197 complet ed HISTORICA L INFORMATI ON - FROM OTHER [facility], [facility] N COVID-19 ([facility]), MRNA, LNP-S, PF, 30 MCG/0.3 ML DOSE 4 2021 208 complet ed [facility] COVID-19 ([facility]), MRNA, LNP-S, PF, 30 MCG/0.3 ML DOSE, ROSETTA-SUCROSE (AGES 12+ YEARS) 2 2021 217 complet ed HISTORICA L INFORMATI ON - FROM OTHER [facility] COVID-19 ([facility]), MRNA, LNP-S, PF, 30 MCG/0.3 ML DOSE 3 2020 208 complet ed [facility] INFLUENZA, HIGH-DOSE, QUADRIVALENT, PF 5 2020 197 complet ed HISTORICA L INFORMATI ON - FROM OTHER REGISTRY, [facility] INFLUENZA, UNSPECIFIED FORMULATION 2020 88 complet ed [facility] COVID-19 ([facility]), MRNA, LNP-S, PF, 30 MCG/0.3 ML DOSE 2 2020 208 complet ed [facility] COVID-19 ([facility]), MRNA, LNP-S, PF, 30 MCG/0.3 ML DOSE 1 2020 208 complet ed [facility] INFLUENZA, SEASONAL, INJECTABLE, PRESERVATIVE FREE 2019 140 complet ed HISTORICA L INFORMATI ON - FROM OTHER PROVIDER, Partner: [facility]. Administe red by: [facility] Clinician (NPI=Not Provided) . Partner Lot#: [id number] Mfr: [facility] INFLUENZA, INJECTABLE, QUADRIVALENT, PRESERVATIVE FREE 2018 150 complet ed [facility] INFLUENZA, HIGH DOSE SEASONAL 2017 135 complet ed 02, Partner: [facility]. Administe red by: [facility] Clinician (NPI=Not Provided) . Partner Lot#: [id number] Mfr: [employer] [facility] INFLUENZA, INJECTABLE, MDCK, PRESERVATIVE FREE, QUADRIVALENT 2016 171 complet ed 02, Partner: [facility] . Administe red by: [facility] Clinician (NPI=Not Provided) . Partner Lot#: [id number] Mfr: [facility] ZOSTER LIVE 2016 121 complet ed [facility] PNEUMOCOCCAL CONJUGATE PCV 13 2016 133 complet ed per patient [facility] PNEUMOCOCCAL POLYSACCHARID E PPV23 2016 33 complet ed [facility] INFLUENZA, HIGH-DOSE, TRIVALENT, PF 1 2015 135 complet ed HISTORICA L INFORMATI ON - FROM OTHER REGISTRY, [facility] NOVEL INFLUENZA-H1N 1-09, ALL FORMULATIONS 2015 128 complet ed 02, Partner: [facility] . Administe red by: [facility] Clinician (NPI=Not Provided) . Partner Lot#: [id number] Mfr: [employer] [facility] Encounters Combined list of: 1) Encounters from [facility] Affairs facilities going backup to the last 18 months, not all [place] inpatient encounters are included; 2) Encounters from the Department of Defense facilities going backup to 280 months. Location Location Details Encounter Type Encounter Number Reason For Visit Attending Provider ADM Date DC Date Status Disposition Source [facility] COMPRE OPH EXAM EST PT 1/> [id number] Diagnos is: ICD-10- CM D31.31 Benign neoplas m of right choroid Madelin GUZMAN E 09/19 [facility] Outpatient Encounter [id number] 12/10 [facility] REPAIR/MOD IFYING [id number] Diagnos is: ICD-10- CM H90.3 Sensori neural hearing loss, bilater Anastasiia Ortiz N 05/12 [facility] Outpatient Encounter [id number] 07/13 [facility] En[facility] [id number] 07/20 [facility] Social History Combined list of available smoking, tobacco, and other social history from Department of Defense and [facility] Affairs facilities. Social History Type Response Date Comment Sourc e Tobacco smoking status NHIS VA-TOBACCO USER EVERY DAY 08/20/2021 [facility] History of tobacco use VA-TOBACCO DOESNT USE WI 30 MIN WAKEUP 08/20/2021 [facility] History of tobacco use VA-TOBACCO DOESNT USE WI 30 MIN WAKEUP 10/30/2019 [facility] History of tobacco use VA-TOBACCO USE MED NO 11/02/2018 [facility] History of tobacco use TOBACCO OFFERED P T MEDS (PROVIDER) 09/02/2017 [facility] History of tobacco use CURRENT TOBACCO USER 10/02/2016 [facility] History of tobacco use CURRENT TOBACCO USER 12/24/2015 [facility] Plan of Care List of future care activities from [facility] facilities. Additional future care activities may be listed in the Assessment and Plan section. Date/Time Care Activity Care Activity Detail Facili ty 10/17/2024 AMBULATORY - MEDICINE AMBULATORY - MEDICI NE [facility] Advance Directives List of completed, amended, or rescinded Advance Directives on record at [facility] facilities. An actual copy of the Directive is not included. Date Advance Directive Provider Source 10/07/2017 ADVANCE [address]IVE [address] M[address] [facility] 10/07/2017 RESCINDED ADVANCE DIRECTIVE ANUPAMA MENDEZ [facility] 11/16/2016 ADVANCE DIRECTIVE MAISHA HORTA [facility]
--- OUTSIDE RECORDS SUMMARY | 2024-09-27 14:28 | XMS_ITS | Clinical Summary ---
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 Porter Pendleton MD [facility] PROCEDURES Final Result * COLONOSCOPY (06/21/2020 3:19 PM MEDIA RELATIONS MANAGER) Anatomical Region Laterality Modality Other Narrative Procedure Note Mt Clark MD - 06/21/2020 3:19 PM CST [facility] END[facility] Patient Name: Rob Olivier Procedure Date: 06/21/2020 3:19 PM Date of : 1945 Admit Type: Outpatient Age: 74 Gender: Male Attending MD: Mt Clark M.D. Room: [facility] ENDOSCOPY ROOM 3 Note Status: Finalized [...] scope was passed under direct vision. The [id number] endoscope was introduced through the anusand advanced [...] On: 06/21/2020 3:19 PM Recognized by the [place] [employer] Gastrointestinal Endoscopy for promoting quality in endoscopy Mt Clark MD ENDOSCOPY PROCEDURES F inal Result from Last 3 Months or Most Recently Relevant to Health Maintenance Insurance [facility] MEDICARE ADVANTAGE Member Subscriber Plan / Payer (Ef fective 2020-Present) Name:Rob Olivier Relation to Subscriber:Self Name:Rob Olivier Payer ID:[id number] (NAIC) Type:[facility] MEDICARE Address: [place] [phone] [facility] MEDICARE ADVANTAGE Member Subscriber Plan / Payer (Ef fective 2020-Present) Name:Rob Olivier Relation to Subscriber:Self Name:Rob Olivier Payer ID:[id number] (NAIC) Type:[facility] MEDICARE Address: [place] [phone] Member Subscriber Plan / Payer (Ef fective 2020-Present) Name:Rob Olivier Relation to Subscriber:Self Name:Rob Olivier Payer ID:[id number] (NAIC) Type:[facility] MEDICARE Address: [place] [phone] [employer] MEDICARE ADVANTAGE Advance Directives For more information, please contact: [phone] * Full Code (Latest Code Status on File) Date Activated Date Inactivated Comments 06/21/2020 1:54 PM 06/21/2020 8:36 PM Care Teams Trailer Driver Relationship Specialty Start Date End Date Porter Pendleton MD PCP - General Endocrinology Diabetes & Metabolism 05/15/21 Myah Obrien, flame cutter Failure Coordinator 02/10/23
--- OUTSIDE RECORDS SUMMARY | 2024-09-27 14:28 | XMS_ITS | Referral Summary ---
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 Result [facility] Porter Pendleton MD [facility] PROCEDURES Final Result * COLONOSCOPY (06/21/2020 3:19 PM FREIGHT MANAGER) Anatomical Region Laterality Modality Other Narrative Procedure Note Mt Clark MD - 06/21/2020 3:19 PM CST [facility] ENDOSCOPY [facility] Patient Name: Rob Rojashead Procedure Date: 06/21/2020 3:19 PM Date of : 1945 Admit Type: Outpatient Age: 74 Gender: Male Attending MD: Mt Clark M.D. Room: [facility] ENDOSCOPY ROOM 3 Note Status: Finalized Procedure: [...] scope was passed under direct vision. The [id number] endoscope was introduced through the anusand advanced [...] On: 06/21/2020 3:19 PM Recognized by the [place] [employer] Gastrointestinal Endoscopy for promoting quality in endoscopy Mt Clark MD ENDOSCOPY PROCEDURES F inal Result from Last 3 Months or Most Recently Relevant to Health Maintenance Insurance [facility] MEDICARE ADVANTAGE [facility] MEDICARE ADVANTAGE [facility] MEDICARE ADVANTAGE Advance Directives For more information, please contact: [phone] * Full Code (Latest Code Status on File) Date Activated Date Inactivated Comments 06/21/2020 1:54 PM 06/21/2020 8:36 PM Care Teams Networker Relationship Specialty Start Date End Date Porter Pendleton MD PCP - General Endocrinology Diabetes & Metabolism 05/15/21 Myah Obrien, road commissioner Failure Coordinator 02/10/23
[2024-09-29 05:22] LABS: Creatinine, Random Urine 126 mg/dL (20-320); Total Prot/Creat ratio mg/mg 0.286 (0.025-0.148); Total Protein/Creatinine Ratio 286 mg/g creat (25-148)
[2024-09-29 05:23] LABS: Protein, Total 6.5 g/dL (6.1-8.1)
[2024-09-29 13:09] LABS: Anti Glomerular Basement Memb <1.0 AI
[2024-09-30 11:18] LABS: Albumin 3.9 g/dL (3.8-4.8); Alpha 1 Globulin 0.3 g/dL (0.2-0.3); Alpha 2 Globulin 0.8 g/dL (0.5-0.9); Beta 1 Globulin 0.4 g/dL (0.4-0.6); Gamma Globulin 0.8 g/dL (0.8-1.7)
[2024-09-30 13:04] LABS: ANCA Screen NEGATIVE (NEGATIVE)
== END 2024-09-27 13:02 | disposition home or self-care (01) ==
LOC: ANHLAB 13:02
PROVIDERS: PCP Family Medicine; Visit Provider Internal Medicine Nephrology
DX: I12.9 Hypertensive chronic kidney disease with stage 1 through stage 4 chronic kidney disease, or unspecified chronic kidney disease (principal); N18.31 Chronic kidney disease, stage 3a
CPT/HCPCS: 36415; 80069; 82570; 83520; 84155; 84156; 84165; 84166; 86036; 86038; 86039; 86160; 86225

== ENCOUNTER 2025-01-25 13:20 | Outpatient (CLI) | payer MEDICARE, SELFPAY ==
[2025-01-25 14:23] LABS: Albumin Level 4.3 g/dL (3.5-5.1); Anion Gap 10 mmol/L (4-12); Blood Urea Nitrogen 16 mg/dL (9-20); Calcium 8.5 mg/dL (8.4-10.2); Carbon Dioxide 24 mmol/L (22-30); Chloride 100 mmol/L (98-107); Estimated Glomerular Filt Rate > 60; Glucose 85 mg/dL (65-110); Potassium 4.0 mmol/L (3.4-5.0); Sodium 134 mmol/L (137-145)
[2025-01-25 14:34] LABS: Parathyroid Intact 71.0 pg/mL (14.5-75.2)
[2025-01-25 15:06] LABS: Total Protein Urine Random 31 mg/dL; Ur Ttl Prot Creatinine Ratio 0.30 mg/mg (0-0.20)
--- OUTSIDE RECORDS SUMMARY | 2025-01-25 15:12 | XMS_ITS | Clinical Summary ---
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 Gender Identity Not on file Sexual Orientation [...] Visit 65+ 09/05/2023 09/04/2022, 08/26/2021 Covid-19 Vaccine (2024-2 6 season) 2024 12/11/2023, 12/28/2022, 07/19/2021, Additional history exists Influenza Vaccine (#1) 2024 , 12/28/2022, 01/08/2021, Additional history exists Hepatitis C Screening Completed 05/13/2016 Pneumococcal vaccine 65+ Completed 09/10/2016, 04/2016 Colon Cancer Screening-Colonoscopy Discontinued 06/21/2020, 10/28/2016 Abdominal Aortic Aneurysm (A AA) Screen Completed 02/05/2021 Procedures Procedure Name Priority Date/Time Associated Diagnosis Comments US ABDOMINAL AORTIC ANEURYSM SCREENING Schedule Routine, Read Routine (OP Routine) 02/05/2021 1:55 PM CDT Encounter for abdominal aortic aneurysm (AAA) screening COLONOSCOPY 06/21/2020 3:19 PM COOK APPRENTICE PASTRY from Last 3 Months or Most Recently [...] by: Mikey Lugo M.D. Porter Pendleton MD [facility] PROCEDURES Final Result * COLONOSCOPY (06/21/2020 3:19 PM COOK APPRENTICE PASTRY) Anatomical Region Laterality Modality Other Narrative Procedure Note Mt Clark MD - 06/21/2020 3:19 PM CST [facility] ENDOSCOPY [facility] Patient Name: Rob Olivier Procedure Date: 06/21/2020 3:19 PM Date of : 1945 Admit Type: Outpatient Age: 74 Gender: Male Attending MD: Mt Clark M.D. Room: [facility] ENDOSCOPY ROOM 3 Note Status: [...] scope was passed under direct vision. The [id number] endoscope was introduced through the anusand [...] On: 06/21/2020 3:19 PM Recognized by the [place] [employer] Gastrointestinal Endoscopy for promoting quality in endoscopy Mt Clark MD ENDOSCOPY PROCEDURES F inal Result from Last 3 Months or Most Recently Relevant to Health Maintenance Insurance [facility] MEDICARE ADVANTAGE [facility] MEDIC[facility] ADVANTAGE Member Subscriber Plan / Payer (Ef fective 2020-Present) Name:Rob Olivier Relation to Subscriber:Self Name:Rob Olivier Payer ID:[id number] (NAIC) Type:[facility] MEDICARE Address: [place] [phone] [employer] MEDICARE ADVANTAGE Advance Directives For more information, please contact: [phone] * Full Code (Latest Code Status on File) Date Activated Date Inactivated Comments 06/21/2020 1:54 PM 06/21/2020 8:36 PM Care Teams Residential Caregiver Relationship Specialty Start Date End Date Porter Pendleton MD PCP - General Endocrinology Diabetes & Metabolism 05/15/21 Myah Obrien, private advisor Failure Coordinator 02/10/23
== END 2025-01-25 13:21 | disposition home or self-care (01) ==
PROVIDERS: PCP Family Medicine; Visit Provider Internal Medicine Nephrology
DX: I12.9 Hypertensive chronic kidney disease with stage 1 through stage 4 chronic kidney disease, or unspecified chronic kidney disease (principal); N18.31 Chronic kidney disease, stage 3a; N25.81 Secondary hyperparathyroidism of renal origin; E55.9 Vitamin D deficiency, unspecified
CPT/HCPCS: 36415; 80069; 82306; 82570; 83970; 84156

== ENCOUNTER 2025-02-07 13:57 | Outpatient (CLI) | payer MEDICARE, SELFPAY ==
--- NOTE | ~2025-02-07 | CT_ITS ---
EXAM: CT chest diagnostic, without contrast INDICATION: Follow-up COMPARISON: December 21, 2023 PROCEDURE: Multiplanar images were obtained without contrast. Dose reduction technique(s) used. FINDINGS: CHEST: Lung and Airways: There is a small, circumscribed pulmonary nodule in the right lower lobe, best seen on coronal image 65 and axial image 85. When direct measurements are obtained on the prior study, the greatest diameter is 7 mm, unchanged. This measurement is taken in the oblique plane on the coronal images. Mediastinum and Yvonne: No adenopathy or mass. Heart: Normal size. No pericardial effusion. Moderate coronary arterial calcification. Vessels: Normal arch anatomy. No aneurysm. Pleura: No effusion or thickening. Chest Wall and Axilla: There is gynecomastia. Upper abdomen: There is a fat-containing right adrenal mass which is considered benign. It is unchanged. Bones: No destructive lesions. IMPRESSION: No significant interval change. Reviewed, dictated and finalized at location A.
== END 2025-02-07 13:58 | disposition home or self-care (01) ==
LOC: MICIMG 13:57
PROVIDERS: PCP Family Medicine; Visit Provider Student in an Organized Health Care Education/Training Program
DX: Z72.0 Tobacco use (principal)
CPT/HCPCS: 71250